=== PATIENT | male | born 1955 | race African-American/Black ===

== ENCOUNTER 2020-05-15 01:36 | Outpatient (CLI) | payer OTHER, SELFPAY ==
[2020-05-15 20:39] LABS: SARS-CoV-2 RNA PCR Negative
== END 2020-05-15 01:37 | disposition home or self-care (01) ==
LOC: ANHCOVIDDT 01:37
PROVIDERS: PCP Family Medicine; Visit Provider Internal Medicine Gastroenterology
DX: Z01.812 Encounter for preprocedural laboratory examination (principal); Z20.828 Contact with and (suspected) exposure to other viral communicable diseases
CPT/HCPCS: 87635; C9803; U0003

== ENCOUNTER 2020-05-18 01:19 | Day surgery (SDC) | payer OTHER, SELFPAY ==
[2020-05-12 08:51] VITALS: BMI 32.5
--- NOTE | 2020-05-18 06:42 | WPDANESEPPF ---
Anes - Initial Pre Proc Eval Procedure: Operation Date: 05/18/20 09:00 Proposed Procedures p Screening Colonoscopy - Jose Angel Aguilar DO Date/Time: 05/18/20 06:42 Surgeon: Jose Angel Aguilar DO Pre Op Diagnosis: neoplasm screening Patient Data Age: 64 Gender: M Height: 1.83 m Weight: 109 kg Allergies Allergy/AdvReac Type Severity Reaction Status Date / Time BRANDI Inhibitors Allergy Mild Swelling Verified 05/18/20 07:35 of Lip/Tongue/Throat Home Medications Medication Instructions Recorded Confirmed Type potassium chloride 10 mEq 20 meq PO DAILY #180 tablet 08/11/19 05/12/20 Rx tablet,extended release metformin 500 mg tablet,extended 2,000 mg PO QPM #360 tablet 10/22/19 05/12/20 Rx release 24 hr blood sugar diagnostic #100 each 11/12/19 04/20/20 Rx blood-glucose meter #1 each 11/12/19 04/20/20 Rx lancets 30 gauge #100 each 11/12/19 04/20/20 Rx indapamide 2.5 mg tablet 2.5 mg PO DAILY #90 tablet 11/25/19 05/12/20 Rx diltiazem HCl 360 mg capsule,24 360 mg PO DAILY #90 cap 02/03/20 05/12/20 Rx hr,extended release pravastatin 40 mg tablet 40 mg PO DAILY #90 tablet 02/03/20 05/12/20 Rx glimepiride 2 mg tablet 2 mg PO BID #180 tablet 04/03/20 05/12/20 Rx dapagliflozin 10 mg tablet 10 mg PO DAILY #90 tablet 05/02/20 05/12/20 Rx Patient hx anesthesia problems: none Family hx anesthesia problems: none PMFSH Past Medical History Medical History (Updated 05/18/20 @ 06:43 by Pete Nazario MD) Elevated alkaline phosphatase level Hypercholesterolemia Obesity Primary hypertension Pyogenic granuloma of tongue Type 2 diabetes mellitus with hyperglycemia Umbilical hernia Family History Family History Mother Diabetes mellitus Hypertension Social History Social History Smoking status: Former smoker Second hand tobacco smoke exposure: No Smoking end date: 07/07/13 Alcohol intake: never Substance use: never Substance use type: does not use Living arrangements: with family Gender identity (if verbalized by the patient): Male Spiritual care concerns: No Agree to blood products: Yes Anes - Eval Final PreProcedure Day of Procedure 05/18/20 06:42 Patient weight: obese Heart: regular rate and rhythm Lungs: clear to auscultation and normal air movement Airway: Mallampati scale class II Neurological: alert and oriented Last oral intake: >/= 8 hours ASA classification: III Emergent: no Anesthetic plan: proceed Anesthesia type and monitoring: general GIVS Informed Consent: The patient's anesthetic plan and its attendant risks and benefits were discussed with the patient/family/POA. Questions were solicited and answers provided to the satisfaction of the patient/family/POA.
[2020-05-18 07:37] VITALS: BP 151/91; PULSE 72; RESP 18; TEMP 36.6; O2SAT 100; BMI 33.3
[2020-05-18] MEDS: LACTATED RINGERS 1,000 ML 150 ML IV CONT (07:50)
[2020-05-18 07:54] LABS: Glucose Point of Care 108 (65-105)
--- NOTE | 2020-05-18 08:16 | PM.IMHP ---
H&P: HPI History of Present Illness Date/Time: 05/18/20 08:16 Chief complaint: neoplasm screening Narrative: Reason for visit is colonoscopy. This very pleasant gentleman seen in consultation at the request of the primary physician. Impression: Screening colonoscopy. HLD. HTN. Obesity. DM. Pyogenic granuloma of the tongue. Recommendation: Colonoscopy. History: Very pleasant gentleman has a negative GI review of systems. He is here for screening colonoscopy. Physical examination: General: very pleasant patient in no acute distress. HEENT: Head was normocephalic sclerae is clear mouth without masses neck was supple. Heart: Rate rhythm regular without S3 or S4. Lungs: CTA. Abdomen: Soft with no guarding or rigidity. Bowel sounds were active. Neurologic: Cranial nerves 2 through 12 intact. No focal defects. No clonus. Musculoskeletal system: Revealed no joint tenderness or swelling no muscle atrophy. Extremities: Reveal no significant edema. Skin: Warm and dry with normal turgor. Mental status: intact. Patient is alert and oriented. Review of Systems Review of Systems: All systems reviewed & are unremarkable except as noted in HPI and below PMFSH Past Medical History Medical History (Updated 05/18/20 @ 08:15 by Jose Angel Aguilar DO) Hypercholesterolemia Obesity Primary hypertension Pyogenic granuloma of tongue Type 2 diabetes mellitus with hyperglycemia Surgical History Surgical History (Updated 05/18/20 @ 08:16 by Jose Angel Aguilar DO) H/O colonoscopy H/O umbilical hernia repair S/P left knee arthroscopy Family History Family History Mother Diabetes mellitus Hypertension Social History Social History Smoking status: Former smoker Second hand tobacco smoke exposure: No Smoking end date: 07/07/13 Alcohol intake: never Substance use: never Substance use type: does not use Living arrangements: with family Gender identity (if verbalized by the patient): Male Spiritual care concerns: No Agree to blood products: Yes Meds Home Medications and Allergies Home Medications Medication Instructions Recorded Confirmed Type potassium chloride 10 mEq 20 meq PO DAILY #180 tablet 08/11/19 05/18/20 Rx tablet,extended release metformin 500 mg tablet,extended 2,000 mg PO QPM #360 tablet 10/22/19 05/18/20 Rx release 24 hr blood sugar diagnostic #100 each 11/12/19 05/18/20 Rx blood-glucose meter #1 each 11/12/19 05/18/20 Rx lancets 30 gauge #100 each 11/12/19 05/18/20 Rx indapamide 2.5 mg tablet 2.5 mg PO DAILY #90 tablet 11/25/19 05/18/20 Rx diltiazem HCl 360 mg capsule,24 360 mg PO DAILY #90 cap 02/03/20 05/18/20 Rx hr,extended release pravastatin 40 mg tablet 40 mg PO DAILY #90 tablet 02/03/20 05/18/20 Rx glimepiride 2 mg tablet 2 mg PO BID #180 tablet 04/03/20 05/18/20 Rx dapagliflozin 10 mg tablet 10 mg PO DAILY #90 tablet 05/02/20 05/18/20 Rx Allergies Allergy/AdvReac Type Severity Reaction Status Date / Time BRANDI Inhibitors Allergy Mild Swelling Verified 05/18/20 07:35 of Lip/Tongue/Throat Vital Signs Vital Signs - 24 hr 05/18/20 07:37 Temperature 36.6 C Pulse Rate 72 Respiratory Rate 18 Blood Pressure 151/91 H Pulse Oximetry 100
[2020-05-18 08:57] VITALS: BP 111/70; PULSE 59; RESP 12; O2SAT 97
[2020-05-18 09:07] VITALS: BP 118/79; PULSE 56; RESP 15; O2SAT 100
[2020-05-18 09:17] VITALS: BP 111/70; PULSE 59; RESP 12; O2SAT 97
== END 2020-05-18 09:40 | disposition home or self-care (01) ==
PROVIDERS: PCP Family Medicine; Visit Provider Internal Medicine Gastroenterology
PROC: 0DJD8ZZ Inspection of Lower Intestinal Tract, Via Natural or Artificial Opening Endoscopic (ICD-10-PCS; CPT 45378; principal; 2020-05-18 09:00)
DX: Z12.11 Encounter for screening for malignant neoplasm of colon (principal); K63.5 Polyp of colon; K57.30 Diverticulosis of large intestine without perforation or abscess without bleeding; K64.8 Other hemorrhoids; Z79.84 Long term (current) use of oral hypoglycemic drugs; E78.00 Pure hypercholesterolemia, unspecified; I10 Essential (primary) hypertension; E11.9 Type 2 diabetes mellitus without complications; E66.9 Obesity, unspecified; Z68.33 Body mass index [BMI] 33.0-33.9, adult; Z87.891 Personal history of nicotine dependence
CPT/HCPCS: 45380; 88305; J2001; J2704; J7120

== ENCOUNTER 2020-10-17 08:07 | Outpatient (CLI) | payer OTHER, SELFPAY | END 2020-10-17 08:08 | disposition home or self-care (01) | LOC: ANHCOVIDVC 08:07 | PROVIDERS: PCP Podiatrist Foot & Ankle Surgery | DX: Z23 Encounter for immunization (principal) | CPT/HCPCS: 0001A; 91300 ==

== ENCOUNTER 2020-11-06 08:12 | Outpatient (CLI) | payer OTHER, SELFPAY | END 2020-11-06 08:13 | disposition home or self-care (01) | LOC: ANHCOVIDVC 08:13 | PROVIDERS: PCP Physician Assistant | DX: Z23 Encounter for immunization (principal) | CPT/HCPCS: 0002A; 91300 ==

== ENCOUNTER 2021-09-24 00:43 | Day surgery (SDC) | payer BC, SELFPAY ==
[2021-09-11 15:22] VITALS: BMI 28.0
--- NOTE | 2021-09-22 12:38 | WPDANESEPPF ---
Anes - Initial Pre Proc Eval Procedure: Operation Date: 09/24/21 10:00 Proposed Procedures p Screening Colonoscopy - Jose Angel Gonsalez MD Date/Time: 09/22/21 12:38 Surgeon: Jose Angel Gonsalez MD Pre Op Diagnosis: neoplasm screening Patient Data Age: 66 Gender: M Height: 1.83 m Weight: 94 kg Allergies Allergy/AdvReac Type Severity Reaction Status Date / Time BRANDI Inhibitors Allergy Mild Swelling Verified 09/24/21 09:00 of Lip/Tongue/Throat Home Medications Medication Instructions Recorded Confirmed Type blood-glucose meter #1 each 11/12/19 07/10/21 Rx lancets 30 gauge #100 each 11/12/19 07/10/21 Rx semaglutide 3 mg tablet 3 mg PO DAILY 11/08/20 09/11/21 History blood sugar diagnostic See Rx Instructions .ROUTE 12/18/20 09/11/21 Rx .COMPLEX #300 strip potassium chloride 10 mEq 20 meq PO DAILY #180 tablet 03/07/21 09/11/21 Rx tablet,extended release metformin 500 mg tablet,extended 2,000 mg PO QPM #360 tablet 04/06/21 09/11/21 Rx release 24 hr dapagliflozin 10 mg tablet 10 mg PO DAILY #90 tablet 05/14/21 09/11/21 Rx diltiazem HCl 360 mg capsule,24 See Rx Instructions .ROUTE 05/14/21 09/11/21 Rx hr,extended release .COMPLEX #90 cap pravastatin 40 mg tablet See Rx Instructions .ROUTE 05/14/21 09/11/21 Rx .COMPLEX #90 tablet indapamide 2.5 mg tablet See Rx Instructions .ROUTE 09/03/21 09/11/21 Rx .COMPLEX #90 tablet glimepiride [Amaryl] 2 mg PO BID 09/11/21 09/11/21 History Patient hx anesthesia problems: none Family hx anesthesia problems: none Results Review: All pre-operative results and documents have been reviewed as part of the pre-operative evaluation. [facility] Past Medical History Medical History Hypercholesterolemia Obesity Primary hypertension Pyogenic granuloma of tongue Type 2 diabetes mellitus with hyperglycemia Surgical History Surgical History H/O colonoscopy H/O umbilical hernia repair S/P left knee arthroscopy Family History Family History Mother Diabetes mellitus Hypertension Social History Social History Smoking status: Never smoker Second hand tobacco smoke exposure: No Smoking end date: 07/07/13 Alcohol intake: never Substance use: never Substance use type: does not use Living arrangements: with family Gender identity (if verbalized by the patient): Male Sexual Orientation (if Verbalized by the Patient): Straight or Heterosexual Spiritual care concerns: No Agree to blood products: Yes Anes - Eval Final PreProcedure Day of Procedure 09/22/21 12:38 Patient weight: overweight Heart: regular rate and rhythm Lungs: clear to auscultation and normal air movement Airway: Mallampati scale class II Neurological: alert and oriented Last oral intake: >/= 8 hours ASA classification: III Emergent: no Anesthetic plan: proceed Anesthesia type and monitoring: general GIVS and standard monitoring Results Review: All pre-operative results and documents have been reviewed as part of the pre-operative evaluation. Informed Consent: The patient's anesthetic plan and its attendant risks and benefits were discussed with the patient/family/POA. Questions were solicited and answers provided to the satisfaction of the patient/family/POA.
[2021-09-24 09:01] VITALS: BP 149/88; PULSE 81; RESP 18; TEMP 36.3; O2SAT 100
[2021-09-24 09:10] LABS: Glucose Point of Care 121 mg/dl (65-105)
--- NOTE | 2021-09-24 09:16 | WPDGICN ---
Assessment and Plan Assessment and plan (1) Colon cancer screening: Code(s): Z12.11 - Encounter for screening for malignant neoplasm of colon Status: Acute Assessment and Plan: Patient presents for neoplasia screening today. Further recommendations will be given after colonoscopy. (2) History of colon polyps: Code(s): Z86.010 - Personal history of colonic polyps Status: Acute Assessment and Plan: Patient was found to have a cecal colon polyp in 2019. At that time colon prep was in adequate for the remainder of the colon. Surveillance colonoscopy advised at this time and at intervals in the future because we know he has had cecal colon polyp a year and half ago. GI Consult Note Consult date/time: 09/24/21 09:16 HPI: Natan Auguste is a 66 year old male Presents for screening colonoscopy. Patient was found to have a cecal polyp One and half years ago. At that time colonoscopy had a poor preparation. Patient presents today for to complete evaluation of the remainder of his colon. He states his bowel habits are normal. He has had no bleeding. His family history is noncontributory. Review of Systems Review of Systems: All systems reviewed & are unremarkable except as noted in HPI and below PMFSH Past Medical History Medical History Hypercholesterolemia Obesity Primary hypertension Pyogenic granuloma of tongue Type 2 diabetes mellitus with hyperglycemia Surgical History Surgical History H/O colonoscopy H/O umbilical hernia repair S/P left knee arthroscopy Family History Family History Mother Diabetes mellitus Hypertension Social History Social History Smoking status: Never smoker Second hand tobacco smoke exposure: No Smoking end date: 07/07/13 Alcohol intake: never Substance use: never Substance use type: does not use Living arrangements: with family Gender identity (if verbalized by the patient): Male Sexual Orientation (if Verbalized by the Patient): Straight or Heterosexual Spiritual care concerns: No Agree to blood products: Yes Meds Home Medications and Allergies Home Medications Medication Instructions Recorded Confirmed Type blood-glucose meter #1 each 11/12/19 07/10/21 Rx lancets 30 gauge #100 each 11/12/19 07/10/21 Rx semaglutide 3 mg tablet 3 mg PO DAILY 11/08/20 09/11/21 History blood sugar diagnostic See Rx Instructions .ROUTE 12/18/20 09/11/21 Rx .COMPLEX #300 strip potassium chloride 10 mEq 20 meq PO DAILY #180 tablet 03/07/21 09/11/21 Rx tablet,extended release metformin 500 mg tablet,extended 2,000 mg PO QPM #360 tablet 04/06/21 09/11/21 Rx release 24 hr dapagliflozin 10 mg tablet 10 mg PO DAILY #90 tablet 05/14/21 09/11/21 Rx diltiazem HCl 360 mg capsule,24 See Rx Instructions .ROUTE 05/14/21 09/11/21 Rx hr,extended release .COMPLEX #90 cap pravastatin 40 mg tablet See Rx Instructions .ROUTE 05/14/21 09/11/21 Rx .COMPLEX #90 tablet indapamide 2.5 mg tablet See Rx Instructions .ROUTE 09/03/21 09/11/21 Rx .COMPLEX #90 tablet glimepiride [Amaryl] 2 mg PO BID 09/11/21 09/11/21 History Allergies Allergy/AdvReac Type Severity Reaction Status Date / Time BRANDI Inhibitors Allergy Mild Swelling Verified 09/24/21 09:00 of Lip/Tongue/Throat Vital Signs Vital Signs - 24 hr 09/24/21 09:01 Temperature 97.4 F L Pulse Rate 81 Respiratory Rate 18 Blood Pressure 149/88 H Pulse Oximetry 100 Exam Narrative: Physical exam reveals patient to be alert. Vital signs stable. HEENT exam is unremarkable. Patient is anicteric. Lungs are clear to auscultation and percussion. Heart is without murmur or extra sounds. Abdominal exam bowel sounds are present
[2021-09-24] MEDS: LACTATED RINGERS 1,000 ML 150 ML IV CONT (09:17)
[2021-09-24 09:48] VITALS: BP 92/58; PULSE 63; RESP 15; O2SAT 98
[2021-09-24 09:58] VITALS: BP 93/58; PULSE 63; RESP 14; O2SAT 98
[2021-09-24 10:08] VITALS: BP 99/62; PULSE 61; RESP 17; O2SAT 98
== END 2021-09-24 10:18 | disposition home or self-care (01) ==
PROVIDERS: PCP Family Medicine; Visit Provider Internal Medicine Gastroenterology
PROC: 0DJD8ZZ Inspection of Lower Intestinal Tract, Via Natural or Artificial Opening Endoscopic (ICD-10-PCS; CPT 45378; principal; 2021-09-24 10:00)
DX: Z12.11 Encounter for screening for malignant neoplasm of colon (principal); Z86.010 Personal history of colon polyps; I10 Essential (primary) hypertension; E11.9 Type 2 diabetes mellitus without complications; E78.00 Pure hypercholesterolemia, unspecified; E66.9 Obesity, unspecified; Z68.28 Body mass index [BMI] 28.0-28.9, adult; Z79.84 Long term (current) use of oral hypoglycemic drugs; Z53.8 Procedure and treatment not carried out for other reasons
CPT/HCPCS: 45378; 82948; J2704; J7120

== ENCOUNTER 2021-10-11 01:14 | Day surgery (SDC) | payer BC, SELFPAY ==
[2021-10-03 09:22] VITALS: BMI 29.5
[2021-10-11 09:00] VITALS: BP 143/79; PULSE 70; RESP 18; TEMP 36.2; O2SAT 100; BMI 28.5
[2021-10-11] MEDS: LACTATED RINGERS 1,000 ML 150 ML IV CONT (09:21)
[2021-10-11 09:24] LABS: Glucose Point of Care 147 mg/dl (65-105)
--- NOTE | 2021-10-11 09:50 | WPDANESEPPF ---
Anes - Initial Pre Proc Eval Procedure: Operation Date: 10/11/21 10:00 Proposed Procedures p Screening Colonoscopy - Jose Angel Gonsalez MD Date/Time: 10/11/21 09:50 Surgeon: Jose Angel Gonsalez MD Pre Op Diagnosis: neoplasm screening Patient Data Age: 66 Gender: M Height: 1.83 m Weight: 95.6 kg Last Vital Signs Temp 97.2 F L 10/11/21 09:00 Pulse 70 10/11/21 09:00 Resp 18 10/11/21 09:00 BP 143/79 H 10/11/21 09:00 Pulse Ox 100 10/11/21 09:00 Allergies Allergy/AdvReac Type Severity Reaction Status Date / Time BRANDI Inhibitors Allergy Mild Swelling Verified 10/11/21 09:08 of Lip/Tongue/Throat Home Medications Medication Instructions Recorded Confirmed Type blood-glucose meter #1 each 11/12/19 10/11/21 Rx lancets 30 gauge #100 each 11/12/19 10/11/21 Rx blood sugar diagnostic See Rx Instructions .ROUTE 12/18/20 10/11/21 Rx .COMPLEX #300 strip potassium chloride 10 mEq 20 meq PO DAILY #180 tablet 03/07/21 10/11/21 Rx tablet,extended release metformin 500 mg tablet,extended 2,000 mg PO QPM #360 tablet 04/06/21 10/11/21 Rx release 24 hr dapagliflozin 10 mg tablet 10 mg PO DAILY #90 tablet 05/14/21 10/11/21 Rx indapamide 2.5 mg tablet See Rx Instructions .ROUTE 09/03/21 10/11/21 Rx .COMPLEX #90 tablet glimepiride [Amaryl] 2 mg PO BID 09/11/21 10/11/21 History diltiazem HCl 360 mg capsule,24 See Rx Instructions .ROUTE 10/10/21 10/11/21 Rx hr,extended release .COMPLEX #90 cap pravastatin 40 mg tablet See Rx Instructions .ROUTE 10/10/21 10/11/21 Rx .COMPLEX #90 tablet Laboratory Tests 10/11/21 09:20 POC Capillary Glucose 147 mg/dl H mg/dl (65-105) Patient hx anesthesia problems: none Family hx anesthesia problems: none Results Review: All pre-operative results and documents have been reviewed as part of the pre-operative evaluation. [facility] Past Medical History Medical History Hypercholesterolemia Obesity Primary hypertension Pyogenic granuloma of tongue Type 2 diabetes mellitus with hyperglycemia Surgical History Surgical History H/O colonoscopy H/O umbilical hernia repair S/P left knee arthroscopy Family History Family History Mother Diabetes mellitus Hypertension Social History Social History Smoking status: Former smoker Tobacco type: cigarettes Second hand tobacco smoke exposure: No Smoking end date: 07/07/13 Alcohol intake: never Substance use: never Substance use type: does not use Living arrangements: with family Gender identity (if verbalized by the patient): Male Sexual Orientation (if Verbalized by the Patient): Straight or Heterosexual Spiritual care concerns: No Agree to blood products: Yes Anes - Eval Final PreProcedure Day of Procedure 10/11/21 09:50 Patient weight: obese Heart: regular rate and rhythm Lungs: clear to auscultation Airway: Mallampati scale class II Neurological: alert and oriented Last oral intake: >/= 8 hours ASA classification: III Emergent: no Anesthetic plan: proceed Anesthesia type and monitoring: general GIVS and standard monitoring Results Review: All pre-operative results and documents have been reviewed as part of the pre-operative evaluation. Informed Consent: The patient's anesthetic plan and its attendant risks and benefits were discussed with the patient/family/POA. Questions were solicited and answers provided to the satisfaction of the patient/family/POA.
--- NOTE | 2021-10-11 09:58 | WPDGICN ---
Assessment and Plan Assessment and plan (1) History of colon polyps: Code(s): Z86.010 - Personal history of colonic polyps Status: Acute Assessment and Plan: Patient has prior history of colon polyps by colonoscopy in 2019. Most recent attempt it is follow-up exam was limited by retained stool. Plan is for follow-up colonoscopy today. Patient has received additional preparation in anticipation of this exam. GI Consult Note Consult date/time: 10/11/21 09:58 HPI: Natan Auguste is a 66 year old male Presents for screening colonoscopy. Patient has attempted colonoscopy several weeks ago was limited by poor preparation. Patient has a prior history of colon polyps by colonoscopy in 2019. Patient states that his current weight appetite bowel movements are normal. He denies abdominal pain. He has had no bleeding. Previous colonoscopy attempt several weeks ago was not fruitful because retained stool. Patient presents today for screening. Review of Systems Review of Systems: All systems reviewed & are unremarkable except as noted in HPI and below PMFSH Past Medical History Medical History Hypercholesterolemia Obesity Primary hypertension Pyogenic granuloma of tongue Type 2 diabetes mellitus with hyperglycemia Surgical History Surgical History H/O colonoscopy H/O umbilical hernia repair S/P left knee arthroscopy Family History Family History Mother Diabetes mellitus Hypertension Social History Social History Smoking status: Former smoker Tobacco type: cigarettes Second hand tobacco smoke exposure: No Smoking end date: 07/07/13 Alcohol intake: never Substance use: never Substance use type: does not use Living arrangements: with family Gender identity (if verbalized by the patient): Male Sexual Orientation (if Verbalized by the Patient): Straight or Heterosexual Spiritual care concerns: No Agree to blood products: Yes Meds Home Medications and Allergies Home Medications Medication Instructions Recorded Confirmed Type blood-glucose meter #1 each 11/12/19 10/11/21 Rx lancets 30 gauge #100 each 11/12/19 10/11/21 Rx blood sugar diagnostic See Rx Instructions .ROUTE 12/18/20 10/11/21 Rx .COMPLEX #300 strip potassium chloride 10 mEq 20 meq PO DAILY #180 tablet 03/07/21 10/11/21 Rx tablet,extended release metformin 500 mg tablet,extended 2,000 mg PO QPM #360 tablet 04/06/21 10/11/21 Rx release 24 hr dapagliflozin 10 mg tablet 10 mg PO DAILY #90 tablet 05/14/21 10/11/21 Rx indapamide 2.5 mg tablet See Rx Instructions .ROUTE 09/03/21 10/11/21 Rx .COMPLEX #90 tablet glimepiride [Amaryl] 2 mg PO BID 09/11/21 10/11/21 History diltiazem HCl 360 mg capsule,24 See Rx Instructions .ROUTE 10/10/21 10/11/21 Rx hr,extended release .COMPLEX #90 cap pravastatin 40 mg tablet See Rx Instructions .ROUTE 10/10/21 10/11/21 Rx .COMPLEX #90 tablet Allergies Allergy/AdvReac Type Severity Reaction Status Date / Time BRANDI Inhibitors Allergy Mild Swelling Verified 10/11/21 09:08 of Lip/Tongue/Throat Vital Signs Vital Signs - 24 hr 10/11/21 09:00 Temperature 97.2 F L Pulse Rate 70 Respiratory Rate 18 Blood Pressure 143/79 H Pulse Oximetry 100 Exam Narrative: Physical exam reveals patient to be alert. Vital signs stable. HEENT exam is unremarkable. Patient is anicteric. Lungs are clear to auscultation and percussion. Heart is without murmur or extra sounds. Abdominal exam bowel sounds are present soft nontender with no organomegaly. Digital external rectal exam is normal.
[2021-10-11 10:31] VITALS: BP 95/72; PULSE 59; RESP 22; O2SAT 98
[2021-10-11 10:41] VITALS: BP 109/64; PULSE 52; RESP 14; O2SAT 99
[2021-10-11 10:51] VITALS: BP 125/76; PULSE 57; RESP 17; O2SAT 98
--- NOTE | 2021-10-11 10:58 | SUR.PHASEII ---
Pt will be delayed in discharge due to S.O. having pt's clothes. S.O. is 20 min away.
== END 2021-10-11 11:30 | disposition home or self-care (01) ==
PROVIDERS: PCP Physician Assistant; Visit Provider Internal Medicine Gastroenterology
PROC: 0DJD8ZZ Inspection of Lower Intestinal Tract, Via Natural or Artificial Opening Endoscopic (ICD-10-PCS; CPT 45378; principal; 2021-10-11 10:00)
DX: Z09 Encounter for follow-up examination after completed treatment for conditions other than malignant neoplasm (principal); D12.2 Benign neoplasm of ascending colon; K63.5 Polyp of colon; K64.8 Other hemorrhoids; K57.30 Diverticulosis of large intestine without perforation or abscess without bleeding; E78.00 Pure hypercholesterolemia, unspecified; I10 Essential (primary) hypertension; E11.65 Type 2 diabetes mellitus with hyperglycemia; Z87.891 Personal history of nicotine dependence
CPT/HCPCS: 45380; 82948; 88305; J2704; J7120

== ENCOUNTER 2022-09-09 08:20 | Outpatient (CLI) | payer BC, SELFPAY ==
--- NOTE | ~2022-09-09 | US_ITS ---
EXAMINATION: US arterial ankle brachial ind DATE: 09/09/2022 09:05 INDICATION: Peripheral vascular disease. TECHNIQUE: Segmental pressures and plethysmographic and Doppler waveforms of the brachial and lower e xtremity arteries were obtained. COMPARISON: None. FINDINGS: Right and left brachial artery pressures of 139 mm Hg and 126 mm Hg, respectively, are concordant (no rmal difference <= 30 mmHg). The right ankle-brachial index (GUILLERMO) is 1.20 (normal >= 0.9-1.0). The right great toe-brachial index (TBI) is 0.60 (normal >= 0.65). Arterial Doppler waveforms are biphasic with brisk systolic upstrokes at both right posterior tibial and dorsalis pedis arteries. The left GUILLERMO is 1.17. The left TBI is 0.63. Arterial Doppler waveforms are triphasic at the left post erior tibial and biphasic at the left dorsalis pedis arteries, both with brisk systolic upstrokes. IMPRESSION: 1. Mild peripheral arterial occlusive disease with normal bilateral ABIs but mildly decreased bilater al TBIs. Reviewed, dictated and finalized at location A. R CONTROL COUNSELOR IMPRESSION: 1. Mild peripheral arterial occlusive disease with normal bilateral ABIs but mi ldly decreased bilateral TBIs.
== END 2022-09-09 08:21 | disposition home or self-care (01) ==
PROVIDERS: PCP Family Medicine; Visit Provider Family Medicine
DX: I73.9 Peripheral vascular disease, unspecified (principal)
CPT/HCPCS: 93922

== ENCOUNTER 2022-10-02 14:55 | Emergency (ER) | payer BC, SELFPAY ==
[2022-10-02 14:57] VITALS: BP 137/71; PULSE 76; RESP 16; TEMP 36.3; O2SAT 100
[2022-10-02 15:33] LABS: Appearance Urine Clear (Clear); Bilirubin Urine Negative (Negative); Blood Urine Negative (Negative); Color Urine Yellow (Yellow); Glucose Urine UA 3+ mg/dL (Negative); Ketones Urine Trace mg/dL (Negative); Leukocyte Esterase Ur Negative LEU/UL (Negative); Nitrate Urine Negative (Negative); Protein Urine Negative (Negative); Urobilinogen Urine 0.2 mg/dL (<2.0)
[2022-10-02 15:38] LABS: Specific Grav Ur 1.041 (1.001-1.035)
[2022-10-02 15:39] LABS: Add Urine Microscopic? NO
--- NOTE | 2022-10-02 15:53 | ED.BACK ---
HPI - Back Pain/Injury General Chief Complaint: Back Pain/Injury <Brandt Banegas PA-C - Last Filed: 10/02/22 18:27> Stated Complaint: back pain <MICHELLE Stoll Last Filed: 10/02/22 18:27> Time Seen by Provider: 10/02/22 15:00 <Brandt Banegas PA-C - Last Filed: 10/02/22 18:27> Source: patient <MICHELLE Stoll Last Filed: 10/02/22 18:27> Mode of arrival: ambulatory <Brandt Banegas PA-C - Last Filed: 10/02/22 18:27> Limitations: no limitations <MICHELLE Stoll Last Filed: 10/02/22 18:27> History of Present Illness HPI Narrative: This is a 67-year-old male presents the ED for chief complaint of low back pain x2 weeks. Patient states that this was onset shortly after helping someone move heavy furniture. He reports right-sided lower back pain that does not radiate anywhere else. Worsened with bending over and picking things up. Denies urinary symptoms. Denies abdominal pain. Denies any midline back pain. <Brandt Banegas PA-C - Last Filed: 10/02/22 18:27> Related Data Home Medications: Home Medications Medication Instructions Recorded Confirmed glimepiride 2 mg tablet (Amaryl) 2 mg PO BID 09/11/21 09/03/22 <Brandt Banegas PA-C - Last Filed: 10/02/22 18:27> Allergies/Adverse Reactions: Allergies Allergy/AdvReac Type Severity Reaction Status Date / Time BRANDI Inhibitors Allergy Mild Swelling Verified 09/03/22 08:29 of Lip/Tongue/Throat <MICHELLE Stoll Last Filed: 10/02/22 18:27> Review of Systems Review of Systems: CONSTITUTIONAL: Denies fever, chills, or sweats. EYES: Denies visual changes, redness, or discharge. ENT: Denies rhinorrhea, congestion, sore throat, or otalgia. CARDIOVASCULAR: Denies chest pain, palpitations, or edema. RESPIRATORY: Denies cough or dyspnea. GASTROINTESTINAL: Denies abdominal pain, nausea, vomiting, or diarrhea. GENITOURINARY: Denies dysuria or hematuria. SKIN: Denies rash or itching. MUSCULOSKELETAL: Endorses right lower back pain. denies joint pain, or myalgia. NEUROLOGIC: Denies headache, numbness, dizziness, or weakness. PSYCHIATRIC: Denies anxiety or depression. <Brandt Banegas PA-C - Last Filed: 10/02/22 18:27> [facility] Past Medical History Medical History: Medical History Hypercholesterolemia Obesity Primary hypertension Pyogenic granuloma of tongue Type 2 diabetes mellitus with hyperglycemia <Brandt Banegas PA-C - Last Filed: 10/02/22 18:27> Surgical History Surgical History: Surgical History H/O colonoscopy H/O umbilical hernia repair S/P left knee arthroscopy <Brandt Banegas PA-C - Last Filed: 10/02/22 18:27> Family History Family History: Family History Mother Diabetes mellitus Hypertension Sibling Alzheimer's dementia <Brandt Banegas PA-C - Last Filed: 10/02/22 18:27> Social History Social History: Social History Smoking packs per day: 1.5 Smoking cigarettes per day: 30.0 Years smoked: 20 Smoking pack-years: 30.00 Smoking status: Former smoker Tobacco type: cigarettes Second hand tobacco smoke exposure: No Smoking end date: 07/07/13 Alcohol intake: never Substance use: never Substance use type: does not use Lack of Transportation: No Lack of Food: Sometimes True Current Housing: I Have Housing Concerned About Future Housing: No Difficulty Paying Gas/Electric Bills: No Difficulty Paying for Meds: No Currently Unemployed: No Education: High School Diploma/GED Difficulty w/ Childcare or Family Care: No Living arrangements: alone Occupation/Education: occupation Gender identity (if verbalized by the patient): Male Sexual Orientation (if Verbalized by the Patient): Straight or Hetero
== END 2022-10-02 16:37 | disposition home or self-care (01) ==
PROVIDERS: Emergency Medicine; Emergency Provider Physician Assistant; PCP Family Medicine
DX: S39.012A Strain of muscle, fascia and tendon of lower back, initial encounter (principal); I10 Essential (primary) hypertension; E11.9 Type 2 diabetes mellitus without complications; Z87.891 Personal history of nicotine dependence; X50.0XXA Overexertion from strenuous movement or load, initial encounter
CPT/HCPCS: 81003; 99283

== ENCOUNTER 2022-12-10 08:43 | Outpatient (CLI) | payer BC, SELFPAY ==
--- NOTE | ~2022-12-10 | XR_ITS ---
XR shoulder LT min 2V DATE: 12/10/2022 09:05 INDICATION: Left shoulder pain for 2 weeks; no injury. TECHNIQUE: 4 views COMPARISON: None FINDINGS: No fracture or dislocation, periosteal reaction or bone destruction or abnormal soft tissue calcification. Normal alignment at the acromioclavicular and glenohumeral joints. IMPRESSION: No significant abnormality Reviewed, dictated and finalized at location L. IMPRESSION: No significant abnormality
== END 2022-12-10 08:44 | disposition home or self-care (01) ==
PROVIDERS: PCP Family Medicine; Visit Provider Physician Assistant
DX: M25.512 Pain in left shoulder (principal)
CPT/HCPCS: 73030

== ENCOUNTER 2023-09-26 14:32 | Outpatient (CLI) | payer BC, SELFPAY ==
--- NOTE | ~2023-09-26 | US_ITS ---
EXAMINATION: US arterial ankle brachial ind DATE: 09/26/2023 15:22 INDICATION: Arterial occlusive disease to the bilateral lower limbs. TECHNIQUE: Segmental pressures and plethysmographic and Doppler waveforms of the brachial and lower e xtremity arteries were obtained. COMPARISON: 09/09/2022 FINDINGS: Right and left brachial artery pressures of 129 mm Hg and 121 mm Hg, respectively, are concordant (no rmal difference <= 30 mmHg). The right ankle-brachial index (GUILLERMO) is 1.16 (normal >= 0.9-1.0). The right great toe-brachial index (TBI) is 0.49 (normal >= 0.65). Arterial Doppler waveforms are monophasic at the right posterior tibi al artery and biphasic at the right dorsalis pedis artery, both with brisk systolic upstrokes. The left GUILLERMO is 1.05. The left TBI is 0.60. Arterial Doppler waveforms are monophasic with brisk syst olic upstrokes at both left posterior tibial and dorsalis pedis arteries. IMPRESSION: 1. No significant change in mild peripheral arterial occlusive disease to the bilateral lower limbs w ith normal bilateral ABIs but mildly decreased bilateral TBIs. Reviewed, dictated and finalized at location A. IMPRESSION: 1. No significant change in mild peripheral arterial occlusive disease to the b ilateral lower limbs with normal bilateral ABIs but mildly decreased bilateral TBIs.
== END 2023-09-26 14:33 | disposition home or self-care (01) ==
LOC: ANHIMG 14:34
PROVIDERS: PCP Family Medicine; Visit Provider Physician Assistant Medical
DX: I73.9 Peripheral vascular disease, unspecified (principal); E11.65 Type 2 diabetes mellitus with hyperglycemia
CPT/HCPCS: 93922

== ENCOUNTER 2023-09-27 07:08 | Outpatient (CLI) | payer BC, SELFPAY ==
[2023-09-27 08:09] LABS: Alanine Aminotransferase 17 U/L (6-50); Albumin Level 4.2 g/dL (3.5-5.1); Alkaline Phosphatase 153 U/L (38-126); Anion Gap 7 mmol/L (8-16); Aspartate Amino Transferase 24 U/L (17-59); Bilirubin,Total 0.5 mg/dL (0.2-1.3); Blood Urea Nitrogen 21 mg/dL (9-20); Calcium 9.7 mg/dL (8.4-10.2); Carbon Dioxide 30 mmol/L (22-30); Chloride 103 mmol/L (98-107); Cholesterol 166 mg/dL (0-200); Estimated Glomerular Filt Rate > 60; Glucose 303 mg/dL (65-110); HDL Direct 30 mg/dL; Sodium 140 mmol/L (137-145); Triglycerides 100 mg/dL (<150)
[2023-09-27 08:40] LABS: Prostate Specific Antigen 1.3 ng/mL (< OR = 4.0)
[2023-09-27 09:37] LABS: LDL Cholesterol Direct 111 mg/dL
[2023-09-27 15:25] LABS: Hemoglobin A1C > 14.0 % (<5.7)
== END 2023-09-27 07:09 | disposition home or self-care (01) ==
PROVIDERS: PCP Family Medicine; Visit Provider Physician Assistant Medical
DX: E78.2 Mixed hyperlipidemia (principal); R73.03 Prediabetes; Z12.5 Encounter for screening for malignant neoplasm of prostate
CPT/HCPCS: 36415; 80053; 80061; 83036; 84153; G0103

== ENCOUNTER 2023-11-20 09:01 | Outpatient (CLI) | payer BC, SELFPAY ==
--- NOTE | 2023-11-20 09:22 | ECG_ITS ---
SEE SCANNED COPY FOR CONFIRMED REPORT MTDD
[2023-11-20 11:07] LABS: Basophils Percent Auto 0.4 % (0.2-1.2); Eosinophils Absolute Auto 0.1 K/mm3 (0-0.3); Eosinophils Percent Auto 0.7 % (0-4.4); Hematocrit 44.3 % (42.0-52.0); Hemoglobin 14.6 g/dL (14.0-18.0); Immature Granulocyte Absolute 0.06 K/mm3 (0.00-0.031); Immature Granulocyte Percent A 0.6 % (0-0.5); Lymphocytes Absolute Auto 2.21 K/mm3 (0.9-3.2); Lymphocytes Percent Auto 21.9 % (18.3-44.2); Mean Corpuscular Hemoglobin 27.4 pg (26-34); Mean Corpuscular Volume 83.1 fl (80-100); Mean Platelet Volume 11.8 fl (7.4-10.4); Monocytes Absolute Auto 0.9 K/mm3 (0.1-0.6); Monocytes Percent Auto 8.8 % (2.6-8.5); Neutrophils Absolute Auto 6.8 K/mm3 (1.3-6.7); Neutrophils Percent Auto 67.6 % (45.5-73.1); Platelet Count Result 322 k/mm3 (150-375); Red Blood Count 5.33 M/mm3 (4.6-6.20); Red Cell Distribution Width 13.7 % (11.5-14.5); White Blood Count 10.1 K/mm3 (4.5-10.0)
[2023-11-20 11:10] LABS: Alanine Aminotransferase 15 U/L (6-50); Albumin Level 4.6 g/dL (3.5-5.1); Alkaline Phosphatase 185 U/L (38-126); Anion Gap 13 mmol/L (4-12); Aspartate Amino Transferase 22 U/L (17-59); Bilirubin,Total 0.6 mg/dL (0.2-1.3); Blood Urea Nitrogen 14 mg/dL (9-20); Calcium 9.3 mg/dL (8.4-10.2); Carbon Dioxide 26 mmol/L (22-30); Chloride 100 mmol/L (98-107); Estimated Glomerular Filt Rate > 60; Glucose 248 mg/dL (65-110); Lipase 139 U/L (23-300); Potassium 2.7 mmol/L (3.4-5.0); Sodium 139 mmol/L (137-145)
== END 2023-11-20 09:02 | disposition home or self-care (01) ==
PROVIDERS: PCP Family Medicine; Visit Provider Student in an Organized Health Care Education/Training Program
DX: R10.13 Epigastric pain (principal); E11.65 Type 2 diabetes mellitus with hyperglycemia
CPT/HCPCS: 36415; 80053; 83690; 85025; 93005

== ENCOUNTER 2023-11-20 12:17 | Emergency (ER) | payer BC, SELFPAY ==
[2023-11-20 12:25] VITALS: BP 152/91; PULSE 96; RESP 18; TEMP 36.4; O2SAT 100
--- NOTE | 2023-11-20 12:42 | ED.GENADULT ---
HPI - General Adult General Chief complaint: Recheck/Abnormal Lab/Rx Stated complaint: abn labs Time Seen by Provider: 11/20/23 12:20 History of Present Illness HPI narrative: 68-year-old male presents to the emergency department for evaluation for hypokalemia. Patient has had recent labs drawn due to some persistent epigastric abdominal pain which is being worked up as outpatient. Patient did have baseline labs drawn today and was found to have a low potassium and patient was instructed to present to the emergency department for evaluation. Patient denies any complaints at this time. Patient states he is a poorly controlled diabetic. Related Data Home Medications Medication Instructions Recorded Confirmed glimepiride 2 mg tablet (Amaryl) 2 mg PO BID 09/11/21 11/19/23 Allergies Allergy/AdvReac Type Severity Reaction Status Date / Time BRANDI Inhibitors Allergy Mild Swelling Verified 11/20/23 12:28 of Lip/Tongue/Throat Review of Systems Review of Systems: All systems reviewed & are unremarkable except as noted in HPI and below PMFSH Past Medical History Medical History Benign hypertension Class 1 obesity with body mass index (BMI) of 32.0 to 32.9 in adult Diastasis recti History of colon polyps Hypercholesterolemia Hyperlipidemia Obesity Primary hypertension Primary osteoarthritis of left knee Primary osteoarthritis of right knee Pyogenic granuloma of tongue Type 2 diabetes mellitus with hyperglycemia Umbilical hernia without obstruction and without gangrene Ventral hernia without obstruction or gangrene Surgical History Surgical History H/O colonoscopy H/O umbilical hernia repair S/P left knee arthroscopy Family History Family History Mother Diabetes mellitus Hypertension Sibling Alzheimer's dementia Social History Social History Smoking packs per day: 1.5 Smoking cigarettes per day: 30.0 Years smoked: 20 Smoking pack-years: 30.00 Smoking status: Former smoker Tobacco type: cigarettes Second hand tobacco smoke exposure: No Smoking end date: 07/07/13 Alcohol intake: never Substance use: never Substance use type: does not use Lack of Transportation: No Lack of Food: Sometimes True Current Housing: I Have Housing Concerned About Future Housing: No Difficulty Paying Gas/Electric Bills: No Difficulty Paying for Meds: No Currently Unemployed: No Education: High School Diploma/GED Difficulty w/ Childcare or Family Care: No Living arrangements: alone Occupation/Education: occupation Gender identity (if verbalized by the patient): Male Sexual Orientation (if Verbalized by the Patient): Straight or Heterosexual Spiritual care concerns: No Agree to blood products: Yes Exam Narrative: APPEARANCE: Well appearing, no pain, no distress, well-nourished. HEAD: normocephalic, atraumatic. EYES: PERRLA/EOMI, conjunctivae clear. NOSE: Normal no drainage EARS:TMS clear with good light reflex. THROAT: Pharynx clear, no exudate. NECK: Supple. No adenopathy, no masses. RESPIRATORY: Airway patent, respirations nonlabored. Clear to auscultation bilaterally, no rales, rhonchi, wheezing. CARDIOVASCULAR: Regular rate and rhythm without murmurs rubs or gallops. ABDOMINAL: Epigastric tenderness to palpation MUSCULOSKELETAL: Moves all extremities. Strength/ROM intact, No edema, No calf tenderness. NEURO: Alert. Cranial nerves II through XII intact. Good gait. Good coordination SKIN: Warm, dry. Normal Color Course Vital Signs Vital signs: Vital Signs Temperature 97.5 F L 11/20/23 12:25 Pulse Rate 96 11/20/23 12:25 Respiratory Rate 18 11/20/23 12:25 Blood Pressure 152/91 H
[2023-11-20 13:01] LABS: Anion Gap 10 mmol/L (4-12); Blood Urea Nitrogen 14 mg/dL (9-20); Calcium 9.5 mg/dL (8.4-10.2); Carbon Dioxide 30 mmol/L (22-30); Chloride 100 mmol/L (98-107); Estimated CRCL calculation 105 ml/min; Estimated Glomerular Filt Rate > 60; Glucose 242 mg/dL (65-110); Magnesium 2.5 mg/dL (1.6-2.3); Sodium 140 mmol/L (137-145)
[2023-11-20] MEDS: POTASSIUM CHLORIDE 20 MEQ PACKET (FOR LIQUID) 40 MEQ PO (13:09)
--- NOTE | 2023-11-20 13:17 | ECG_ITS ---
SEE SCANNED COPY FOR CONFIRMED REPORT MTDD
[2023-11-20 14:11] VITALS: BP 129/84; PULSE 82; RESP 16; O2SAT 99
== END 2023-11-20 14:12 | disposition home or self-care (01) ==
PROVIDERS: Emergency Provider Emergency Medicine; PCP Family Medicine
DX: E87.6 Hypokalemia (principal); I10 Essential (primary) hypertension; E78.5 Hyperlipidemia, unspecified; E11.9 Type 2 diabetes mellitus without complications; Z87.891 Personal history of nicotine dependence
CPT/HCPCS: 36415; 80048; 80053; 83690; 83735; 85025; 93005; 99283; A9270

== ENCOUNTER 2023-11-24 09:17 | Outpatient (CLI) | payer BC, SELFPAY ==
[2023-11-24 10:02] LABS: Alanine Aminotransferase 15 U/L (6-50); Albumin Level 4.4 g/dL (3.5-5.1); Alkaline Phosphatase 192 U/L (38-126); Anion Gap 8 mmol/L (4-12); Aspartate Amino Transferase 20 U/L (17-59); Bilirubin,Total 0.5 mg/dL (0.2-1.3); Blood Urea Nitrogen 14 mg/dL (9-20); Calcium 9.6 mg/dL (8.4-10.2); Carbon Dioxide 33 mmol/L (22-30); Chloride 96 mmol/L (98-107); Estimated Glomerular Filt Rate > 60; Glucose 328 mg/dL (65-110); Potassium 2.9 mmol/L (3.4-5.0); Sodium 137 mmol/L (137-145)
== END 2023-11-24 09:18 | disposition home or self-care (01) ==
LOC: ANHLAB 09:18
PROVIDERS: PCP Family Medicine; Visit Provider Physician Assistant Medical
DX: E78.2 Mixed hyperlipidemia (principal)
CPT/HCPCS: 36415; 80053

== ENCOUNTER 2023-12-17 14:00 | Outpatient (CLI) | payer BC, SELFPAY ==
--- NOTE | ~2023-12-17 | CT_ITS ---
CT of the Abdomen and Pelvis: Indication: Abdominal pain Technique: 2.5 mm axial scans were obtained through the abdomen and pelvis following intravenous adm inistration of 100 cc of Omnipaque 350. Dose reduction technique was used on this scan by utilizing a utomated exposure control and iterative reconstruction technique. The dose-length product (DLP) was 6 78.96 mGy-cm. Findings: Scans through the lung bases are unremarkable. The liver, spleen, pancreas, gallbladder, adrenals and kidneys are within normal limits, aside from b ilateral renal cysts. No evidence of aortic aneurysm. No lymphadenopathy. No bowel obstruction or bowel wall thickening. There is no evidence to suggest acute appendicitis. Images through the pelvis were performed. Urinary bladder unremarkable. No pelvic mass seen. No ascit es. Impression: No significant abnormalities seen. Reviewed, dictated and finalized at [facility]. Impression: No significant abnormalities seen.
[2023-12-17 15:11] LABS: Basophils Percent Auto 0.4 % (0.2-1.2); Eosinophils Absolute Auto 0.1 K/mm3 (0-0.3); Eosinophils Percent Auto 1.2 % (0-4.4); Hematocrit 38.2 % (42.0-52.0); Hemoglobin 12.9 g/dL (14.0-18.0); Immature Granulocyte Absolute 0.02 K/mm3 (0.00-0.031); Immature Granulocyte Percent A 0.3 % (0-0.5); Lymphocytes Absolute Auto 2.28 K/mm3 (0.9-3.2); Lymphocytes Percent Auto 29.7 % (18.3-44.2); Mean Corpuscular HGB Conc 33.8 g/dl (32-36); Mean Corpuscular Hemoglobin 27.4 pg (26-34); Mean Corpuscular Volume 81.3 fl (80-100); Mean Platelet Volume 11.1 fl (7.4-10.4); Monocytes Absolute Auto 0.7 K/mm3 (0.1-0.6); Monocytes Percent Auto 9.4 % (2.6-8.5); Neutrophils Absolute Auto 4.5 K/mm3 (1.3-6.7); Platelet Count Result 295 k/mm3 (150-375); Red Cell Distribution Width 13.4 % (11.5-14.5); White Blood Count 7.7 K/mm3 (4.5-10.0)
[2023-12-17 15:38] LABS: Alanine Aminotransferase 14 U/L (6-50); Alkaline Phosphatase 137 U/L (38-126); Anion Gap 7 mmol/L (4-12); Aspartate Amino Transferase 20 U/L (17-59); Bilirubin,Total 0.5 mg/dL (0.2-1.3); Blood Urea Nitrogen 18 mg/dL (9-20); Calcium 9.3 mg/dL (8.4-10.2); Carbon Dioxide 28 mmol/L (22-30); Chloride 102 mmol/L (98-107); Estimated Glomerular Filt Rate > 60; Glucose 209 mg/dL (65-110); Potassium 2.8 mmol/L (3.4-5.0); Sodium 137 mmol/L (137-145)
== END 2023-12-17 14:01 | disposition home or self-care (01) ==
PROVIDERS: PCP Family Medicine; Visit Provider Family Medicine
DX: R10.13 Epigastric pain (principal); R19.00 Intra-abdominal and pelvic swelling, mass and lump, unspecified site; R10.9 Unspecified abdominal pain
CPT/HCPCS: 36415; 74177; 80053; 85025; Q9967

== ENCOUNTER 2023-12-26 09:28 | Outpatient (CLI) | payer BC, SELFPAY ==
[2023-12-26 10:13] LABS: Hemoglobin A1C 13.3 % (<5.7)
[2023-12-26 10:15] LABS: Alanine Aminotransferase 18 U/L (6-50); Albumin Level 4.4 g/dL (3.5-5.1); Alkaline Phosphatase 139 U/L (38-126); Anion Gap 9 mmol/L (4-12); Aspartate Amino Transferase 24 U/L (17-59); Bilirubin,Total 0.6 mg/dL (0.2-1.3); Blood Urea Nitrogen 14 mg/dL (9-20); Calcium 9.5 mg/dL (8.4-10.2); Carbon Dioxide 27 mmol/L (22-30); Chloride 104 mmol/L (98-107); Estimated Glomerular Filt Rate > 60; Glucose 291 mg/dL (65-110); Potassium 3.6 mmol/L (3.4-5.0); Sodium 140 mmol/L (137-145)
== END 2023-12-26 09:29 | disposition home or self-care (01) ==
LOC: ANHLAB 09:30
PROVIDERS: PCP Family Medicine; Visit Provider Physician Assistant Medical
DX: R73.03 Prediabetes (principal); E78.2 Mixed hyperlipidemia; E87.6 Hypokalemia
CPT/HCPCS: 36415; 80053; 82088; 83036

== ENCOUNTER 2024-01-06 00:35 | Day surgery (SDC) | payer BC, SELFPAY ==
--- NOTE | 2023-12-17 10:37 | SUR.PREOP ---
patient called saying he lost his prep instructions. Offered to email him his instructions. Patient said he didn't have an email address. Reviewed prep instructions and appointment times with the patient. Verified pt's mail address. Two day prep instructions mailed to the patient.
[2023-12-23 14:03] VITALS: BMI 28.5
[2024-01-06 07:15] VITALS: BP 121/78; PULSE 73; RESP 18; TEMP 36.1; O2SAT 100
[2024-01-06] MEDS: LACTATED RINGERS 1,000 ML 150 ML IV CONT (07:33)
[2024-01-06 07:34] LABS: Glucose Point of Care 109 mg/dl (65-105)
--- NOTE | 2024-01-06 08:10 | WPDANESEPPF ---
Anes - Initial Pre Proc Eval Procedure: Operation Date: 01/06/24 08:30 Proposed Procedures p Colonoscopy - Slick Rivas MD Date/Time: 01/06/24 08:10 Surgeon: Slick Rivas MD Pre Op Diagnosis: Personal history colon polyps Patient Data Age: 68 Gender: M Height: 1.77 m Weight: 87.2 kg Last Vital Signs Temp 97 F L 01/06/24 07:15 Pulse 73 01/06/24 07:15 Resp 18 01/06/24 07:15 BP 121/78 01/06/24 07:15 Pulse Ox 100 01/06/24 07:15 O2 Del Method Room Air 01/06/24 07:15 Allergies Allergy/AdvReac Type Severity Reaction Status Date / Time BRANDI Inhibitors Allergy Intermediate Swelling Verified 01/06/24 07:14 of Lip/Tongue/Throat Home Medications Medication Instructions Recorded Confirmed Type blood-glucose meter (OneTouch #1 ea 11/12/19 11/28/23 Rx Verio Meter) lancets 30 gauge (OneTouch Delica #100 ea 11/12/19 11/28/23 Rx Lancets) indapamide 2.5 mg tablet See Rx Instructions .Route 11/15/22 12/23/23 Rx .COMPLEX #90 tabs dapagliflozin propanediol 10 mg 10 mg PO DAILY #90 tabs 05/19/23 12/23/23 Rx tablet (Farxiga) diltiazem HCl 360 mg capsule,24 See Rx Instructions .Route 08/12/23 12/23/23 Rx hr,extended release (Tiadylt ER) .COMPLEX #90 caps gabapentin 100 mg capsule 100 mg PO TID #90 caps 09/17/23 12/23/23 Rx blood sugar diagnostic (OneTouch See Rx Instructions .Route 12/03/23 Rx Verio test strips) .COMPLEX #300 strips pravastatin 40 mg tablet See Rx Instructions .Route 12/11/23 12/23/23 Rx .COMPLEX #90 tabs potassium chloride 20 mEq 20 meq PO TID #90 tabs 12/17/23 12/23/23 Rx tablet,extended release Laboratory Tests 01/06/24 07:31 POC Capillary Glucose 109 H mg/dl (65-105) Patient hx anesthesia problems: none Family hx anesthesia problems: none Results Review: All pre-operative results and documents have been reviewed as part of the pre-operative evaluation. [facility]LY [facility], [facility] Past Medical History Medical History Benign hypertension Class 1 obesity with body mass index (BMI) of 32.0 to 32.9 in adult Diastasis recti History of colon polyps Hypercholesterolemia Hyperlipidemia Obesity Primary hypertension Primary osteoarthritis of left knee Primary osteoarthritis of right knee Pyogenic granuloma of tongue Type 2 diabetes mellitus with hyperglycemia Umbilical hernia without obstruction and without gangrene Ventral hernia without obstruction or gangrene Surgical History Surgical History H/O colonoscopy H/O umbilical hernia repair S/P left knee arthroscopy Family History Family History Mother Diabetes mellitus Hypertension Sibling Alzheimer's dementia Social History Social History Smoking packs per day: 1.5 Smoking cigarettes per day: 30.0 Years smoked: 20 Smoking pack-years: 30.00 Smoking status: Former smoker Tobacco type: cigarettes Second hand tobacco smoke exposure: No Smoking end date: 07/07/13 Alcohol intake: current Substance use: never Substance use type: does not use Lack of Transportation: No Lack of Food: Sometimes True Current Housing: I Have Housing Concerned About Future Housing: No Difficulty Paying Gas/Electric Bills: No Difficulty Paying for Meds: No Currently Unemployed: No Education: High School Diploma/GED Difficulty w/ Childcare or Family Care: No Living arrangements: alone Occupation/Education: occupation Gender identity (if verbalized by the patient): Male Sexual Orientation (if Verbalized by the Patient): Straight or Heterosexual Spiritual care concerns: No Agree to blood products: Yes Anes - Eval Final PreProcedure Day of Procedure 01/06/24 08:10 Mike
--- NOTE | 2024-01-06 08:17 | PM.HPGS ---
History of Present Illness History of Present Illness Consent: Risks, benefits, and alternatives have been discussed and questions answered. Patient agrees to proceed with procedure. Chief complaint: Personal history colon polyps Narrative: Natan Auguste is a 68 year old male with colon polyp in 2021 Review of Systems Review of Systems: All systems reviewed & are unremarkable except as noted in HPI and below PMFSH Past Medical History Medical History Benign hypertension Class 1 obesity with body mass index (BMI) of 32.0 to 32.9 in adult Diastasis recti History of colon polyps Hypercholesterolemia Hyperlipidemia Obesity Primary hypertension Primary osteoarthritis of left knee Primary osteoarthritis of right knee Pyogenic granuloma of tongue Type 2 diabetes mellitus with hyperglycemia Umbilical hernia without obstruction and without gangrene Ventral hernia without obstruction or gangrene Surgical History Surgical History H/O colonoscopy H/O umbilical hernia repair S/P left knee arthroscopy Family History Family History Mother Diabetes mellitus Hypertension Sibling Alzheimer's dementia Social History Social History Smoking packs per day: 1.5 Smoking cigarettes per day: 30.0 Years smoked: 20 Smoking pack-years: 30.00 Smoking status: Former smoker Tobacco type: cigarettes Second hand tobacco smoke exposure: No Smoking end date: 07/07/13 Alcohol intake: current Substance use: never Substance use type: does not use Lack of Transportation: No Lack of Food: Sometimes True Current Housing: I Have Housing Concerned About Future Housing: No Difficulty Paying Gas/Electric Bills: No Difficulty Paying for Meds: No Currently Unemployed: No Education: High School Diploma/GED Difficulty w/ Childcare or Family Care: No Living arrangements: alone Occupation/Education: occupation Gender identity (if verbalized by the patient): Male Sexual Orientation (if Verbalized by the Patient): Straight or Heterosexual Spiritual care concerns: No Agree to blood products: Yes Meds Home Medications and Allergies Home Medications Medication Instructions Recorded Confirmed Type blood-glucose meter (OneTouch #1 ea 11/12/19 11/28/23 Rx Verio Meter) lancets 30 gauge (OneTouch Delica #100 ea 11/12/19 11/28/23 Rx Lancets) indapamide 2.5 mg tablet See Rx Instructions .Route 11/15/22 12/23/23 Rx .COMPLEX #90 tabs dapagliflozin propanediol 10 mg 10 mg PO DAILY #90 tabs 05/19/23 12/23/23 Rx tablet (Farxiga) diltiazem HCl 360 mg capsule,24 See Rx Instructions .Route 08/12/23 12/23/23 Rx hr,extended release (Tiadylt ER) .COMPLEX #90 caps gabapentin 100 mg capsule 100 mg PO TID #90 caps 09/17/23 12/23/23 Rx blood sugar diagnostic (OneTouch See Rx Instructions .Route 12/03/23 Rx Verio test strips) .COMPLEX #300 strips pravastatin 40 mg tablet See Rx Instructions .Route 12/11/23 12/23/23 Rx .COMPLEX #90 tabs potassium chloride 20 mEq 20 meq PO TID #90 tabs 12/17/23 12/23/23 Rx tablet,extended release Allergies Allergy/AdvReac Type Severity Reaction Status Date / Time BRANDI Inhibitors Allergy Intermediate Swelling Verified 01/06/24 07:14 of Lip/Tongue/Throat Vital Signs Vital Signs - 24 hr 01/06/24 07:15 Temperature 97 F L Pulse Rate 73 Respiratory Rate 18 Blood Pressure 121/78 Pulse Oximetry 100 Oxygen Delivery Room Air Exam Const: General: comfortable and no acute distress HENMT: Face/Nose/Sinus: Normal nares present Eyes: General: appearance normal, both eyes and all related structures Neck: Neck: no JVD Resp: Auscultation: clear to auscultation bilaterally Cardio:
[2024-01-06 08:44] VITALS: BP 102/57; PULSE 59; RESP 14; O2SAT 100
[2024-01-06 08:54] VITALS: BP 107/65; PULSE 64; RESP 18; O2SAT 100
[2024-01-06 09:04] VITALS: BP 126/69; PULSE 67; RESP 20; O2SAT 100
== END 2024-01-06 09:15 | disposition home or self-care (01) ==
PROVIDERS: PCP Family Medicine; Visit Provider Internal Medicine Gastroenterology
PROC: 0DJD8ZZ Inspection of Lower Intestinal Tract, Via Natural or Artificial Opening Endoscopic (ICD-10-PCS; CPT 45378; principal; 2024-01-06 08:30)
DX: Z12.11 Encounter for screening for malignant neoplasm of colon (principal); D12.2 Benign neoplasm of ascending colon; K57.30 Diverticulosis of large intestine without perforation or abscess without bleeding; K64.8 Other hemorrhoids; I10 Essential (primary) hypertension; E78.5 Hyperlipidemia, unspecified; E11.9 Type 2 diabetes mellitus without complications; E66.9 Obesity, unspecified; Z68.28 Body mass index [BMI] 28.0-28.9, adult; Z87.891 Personal history of nicotine dependence
CPT/HCPCS: 45385; 82948; 88305; J2371; J2704; J7120

== ENCOUNTER 2024-02-10 07:10 | Outpatient (CLI) | payer BC, SELFPAY ==
[2024-02-10 08:18] LABS: Influenza A QL RT-PCR Negative (Negative); Influenza B QL RT-PCR Negative (Negative); RSV RNA, RT-PCR Negative (Negative); SARS-CoV-2 RNA PCR Negative (Negative)
== END 2024-02-10 07:11 | disposition home or self-care (01) ==
LOC: ANHLAB 07:12
PROVIDERS: PCP Family Medicine; Visit Provider Student in an Organized Health Care Education/Training Program
DX: R09.89 Other specified symptoms and signs involving the circulatory and respiratory systems (principal); Z20.822 Contact with and (suspected) exposure to COVID-19
CPT/HCPCS: 87637

== ENCOUNTER 2024-03-11 03:32 | Emergency (ER) | payer BC, SELFPAY ==
[2024-03-11] VITALS (7 sets, daily range): BP systolic 122–154; BP diastolic 62–70; PULSE 64–71; RESP 12–19; TEMP 36.3–36.6; O2SAT 99–100
--- NOTE | ~2024-03-11 | XR_ITS ---
Clinical Indication: Chest pain PA and lateral views of the chest: Comparison: 09/26/2017 Findings: The lungs are clear, without evidence of focal consolidation or pleural effusion. Cardiome diastinal silhouette is within normal limits. Bones and soft tissues are unremarkable. Impression: Normal chest. Reviewed, dictated and finalized at location . Impression: Normal chest.
--- NOTE | 2024-03-11 03:34 | ECG_ITS ---
Test Date: 2024-03-11 03:39:03 Measurements Intervals [place] Rate: 69 P: 69 [place]: 183 QRS: 39 QRSD: 105 T: 45 QT: 395 QTc: 425 Interpretive Statements SINUS RHYTHM ANTEROSEPTAL MYOCARDIAL INFARCTION , OF INDETERMINATE AGE BORDERLINE ST-T WAVE ABNORMALITY- INF/LAT LEADS ABNORMAL ECG No previous ECG available for comparison Electronically Signed On 03-11-2024 05:28:38 CDT by Christiano Goode D.O.
[2024-03-11 04:04] LABS: Basophils Percent Auto 0.5 % (0.2-1.2); Eosinophils Absolute Auto 0.1 K/mm3 (0-0.3); Eosinophils Percent Auto 1.2 % (0-4.4); Hemoglobin 13.9 g/dL (14.0-18.0); Immature Granulocyte Absolute 0.01 K/mm3 (0.00-0.031); Immature Granulocyte Percent A 0.2 % (0-0.5); Lymphocytes Absolute Auto 1.75 K/mm3 (0.9-3.2); Lymphocytes Percent Auto 26.5 % (18.3-44.2); Mean Corpuscular HGB Conc 33.9 g/dl (32-36); Mean Corpuscular Hemoglobin 27.8 pg (26-34); Mean Platelet Volume 11.4 fl (7.4-10.4); Monocytes Absolute Auto 0.8 K/mm3 (0.1-0.6); Monocytes Percent Auto 11.5 % (2.6-8.5); Neutrophils Percent Auto 60.1 % (45.5-73.1); Platelet Count Result 293 k/mm3 (150-375); Red Cell Distribution Width 13.9 % (11.5-14.5); White Blood Count 6.6 K/mm3 (4.5-10.0)
[2024-03-11 04:15] LABS: Alanine Aminotransferase 16 U/L (6-50); Albumin Level 4.2 g/dL (3.5-5.1); Alkaline Phosphatase 171 U/L (38-126); Anion Gap 12 mmol/L (4-12); Aspartate Amino Transferase 23 U/L (17-59); Bilirubin,Total 0.4 mg/dL (0.2-1.3); Blood Urea Nitrogen 19 mg/dL (9-20); Calcium 9.5 mg/dL (8.4-10.2); Carbon Dioxide 28 mmol/L (22-30); Chloride 97 mmol/L (98-107); Estimated CRCL calculation 86 ml/min; Estimated Glomerular Filt Rate > 60; Glucose 461 mg/dL (65-110); Lipase 91 U/L (23-300); Potassium 2.9 mmol/L (3.4-5.0); Sodium 137 mmol/L (137-145)
[2024-03-11 04:21] LABS: INR 0.9; Prothrombin Time 12.8 Seconds (11.1-14.7)
[2024-03-11 04:22] LABS: Partial Thromboplastin Time 25.8 Seconds (22.3-36.8)
[2024-03-11 04:28] LABS: Troponin I < 0.012 ng/mL (0.000-0.034)
--- NOTE | 2024-03-11 06:18 | ECG_ITS ---
Test Date: 2024-03-11 06:23:33 Measurements Intervals [place] Rate: 63 P: 48 [place]: 187 QRS: 15 QRSD: 106 T: 55 QT: 417 QTc: 428 Interpretive Statements SINUS RHYTHM ANTEROSEPTAL MYOCARDIAL INFARCTION , OF INDETERMINATE AGE BORDERLINE ST-T WAVE ABNORMALITY- LAT/HIGH LAT LEADS BASELINE ARTIFACT- I, II, AVR ABNORMAL ECG Compared to ECG 03/11/2024 03:39:03 No significant changes Electronically Signed On 03-11-2024 07:41:46 CDT by Christiano Goode D.O.
[2024-03-11] MEDS: POTASSIUM CHLORIDE 20 MEQ ER TABLET 40 MEQ PO (07:00)
[2024-03-11 07:01] LABS: Troponin I < 0.012 ng/mL (0.000-0.034)
--- NOTE | 2024-03-11 07:13 | ED.CHESTPAIN ---
HPI - Chest Pain General Chief Complaint: Chest Pain Stated Complaint: chest pain x 2 days Time Seen by Provider: 03/11/24 05:28 History of Present Illness HPI narrative: Patient states that he has been having some chest tightness for the last few days, mostly on the left side, does not radiate, no nausea vomiting, no shortness of breath, this has happened in the past but he has disregarded it. Related Data Allergies Allergy/AdvReac Type Severity Reaction Status Date / Time BRANDI Inhibitors Allergy Intermediate Swelling Verified 01/06/24 07:14 of Lip/Tongue/Throat Review of Systems Review of Systems: All systems reviewed & are unremarkable except as noted in HPI and below PMFSH Past Medical History Medical History Benign hypertension Class 1 obesity with body mass index (BMI) of 32.0 to 32.9 in adult Diastasis recti History of colon polyps Hypercholesterolemia Hyperlipidemia Obesity Primary hypertension Primary osteoarthritis of left knee Primary osteoarthritis of right knee Pyogenic granuloma of tongue Type 2 diabetes mellitus with hyperglycemia Umbilical hernia without obstruction and without gangrene Ventral hernia without obstruction or gangrene Surgical History Surgical History H/O colonoscopy H/O umbilical hernia repair S/P left knee arthroscopy Family History Family History Mother Diabetes mellitus Hypertension Sibling Alzheimer's dementia Social History Social History Smoking packs per day: 1.5 Smoking cigarettes per day: 30.0 Years smoked: 20 Smoking pack-years: 30.00 Smoking status: Former smoker Tobacco type: cigarettes Second hand tobacco smoke exposure: No Smoking end date: 07/07/13 Alcohol intake: current Substance use: never Substance use type: does not use Lack of Transportation: No Lack of Food: Sometimes True Current Housing: I Have Housing Concerned About Future Housing: No Difficulty Paying Gas/Electric Bills: No Difficulty Paying for Meds: No Currently Unemployed: No Education: High School Diploma/GED Difficulty w/ Childcare or Family Care: No Living arrangements: alone Occupation/Education: occupation Gender identity (if verbalized by the patient): Male Sexual Orientation (if Verbalized by the Patient): Straight or Heterosexual Spiritual care concerns: No Agree to blood products: Yes Exam Narrative: EXAMINATION OF ORGAN SYSTEMS/BODY AREAS: Constitutional: Vital signs per nursing GENERAL:[No acute distress, non-toxic appearing.] HEAD: Normal with no signs of head trauma. EYES: EOMI, conjunctiva normal ENT: Hearing grossly intact LUNGS: Nonlabored breathing. Clear to auscultation bilaterally HEART: [Regular rate and rhythm] ABD: [Soft], [nontender to palpation] EXT: Normal range of motion SKIN: [No rashes or lesions.] NEURO: [Alert and oriented x 3. No gross focal sensory or strength deficits.] PSYCH: Normal affect Course Vital Signs Vital signs: Vital Signs Temperature 97.8 F 03/11/24 03:57 Pulse Rate 71 03/11/24 03:57 Respiratory Rate 16 03/11/24 03:57 Blood Pressure 154/69 H 03/11/24 03:57 Pulse Oximetry 99 03/11/24 03:57 Oxygen Delivery Room Air 03/11/24 03:57 Temperature 98 F 03/11/24 06:44 Pulse Rate 68 03/11/24 06:44 Respiratory Rate 17 03/11/24 06:44 Blood Pressure 127/70 03/11/24 06:44 Pulse Oximetry 100 03/11/24 06:44 Oxygen Delivery Room Air 03/11/24 05:08 MDM - Chest Pain MDM Narrative Medical decision making narrative: ED COURSE AND MEDICAL DECISION MAKIN-year-old male presenting with chest pain. EKG done in triage negative for acute ischemic changes. Cardiac workup is initiat
--- NOTE | 2024-03-11 07:18 | PC.NURSE ---
Assumed care of pt. Pt resting with reg resp. Rates CP 3.
== END 2024-03-11 07:33 | disposition home or self-care (01) ==
LOC: ANHED 07:27
PROVIDERS: Emergency Medicine; Emergency Provider Emergency Medicine; PCP Family Medicine
DX: R07.89 Other chest pain (principal); I10 Essential (primary) hypertension; E78.5 Hyperlipidemia, unspecified; E11.9 Type 2 diabetes mellitus without complications; Z87.891 Personal history of nicotine dependence
CPT/HCPCS: 36415; 71046; 80053; 83690; 84484; 85025; 85610; 85730; 93005; 99284; A9270

== ENCOUNTER 2024-03-18 07:40 | Outpatient (CLI) | payer BC, SELFPAY ==
[2024-03-18 08:26] LABS: Anion Gap 10 mmol/L (4-12); Blood Urea Nitrogen 16 mg/dL (9-20); Calcium 9.2 mg/dL (8.4-10.2); Carbon Dioxide 31 mmol/L (22-30); Chloride 97 mmol/L (98-107); Estimated Glomerular Filt Rate > 60; Glucose 294 mg/dL (65-110); Magnesium 2.5 mg/dL (1.6-2.3); Potassium 3.2 mmol/L (3.4-5.0); Sodium 138 mmol/L (137-145)
[2024-03-18 09:13] LABS: Thyroid Stimulating Hormone Reflex 0.614 uIU/mL (0.465-4.68)
== END 2024-03-18 07:41 | disposition home or self-care (01) ==
LOC: ANHLAB 07:42
PROVIDERS: PCP Family Medicine; Visit Provider Family Medicine
DX: R00.2 Palpitations (principal); E87.6 Hypokalemia
CPT/HCPCS: 36415; 80048; 83735; 84443

== ENCOUNTER 2024-04-05 08:26 | Outpatient (CLI) | payer BC, SELFPAY ==
--- NOTE | ~2024-04-05 | NM_ITS ---
EXAMINATION: NM debbie stress w perfusion DATE: 04/05/2024 15:31 INDICATION: Chest pain. Palpitations. TECHNIQUE: Rest images were obtained following intravenous administration of 10.6 mCi Tc99m tetrofosm in (Myoview). The patient was infused intravenously with Lexiscan (regadenoson). Then, 33.3 mCi Tc99m tetrofosmin (Myoview) was administered intravenously, and stress images were obtained. Data was michelle nstructed into short axis and horizontal and vertical long axis SPECT images. Gated SPECT images were also obtained. COMPARISON: None. FINDINGS: There is no definite reversible or fixed perfusion abnormality to suggest ischemia or infar ction. There is no segmental wall motion abnormality. Left ventricular ejection fraction measures 5 4%. IMPRESSION: 1. No definite ischemia or infarct. 2. Normal left ventricular ejection fraction measuring 54%. Reviewed, dictated and finalized at location A.
--- NOTE | 2024-04-05 09:07 | EST_ITS ---
Patient Info Name: Natan Auguste Age: 68 years : 1955 Gender: Male Ht: 68 in Wt: 202 lbs BSA: 2.12 m2 HR: 62 bpm BP: 141 / 83 mmHg Exam Date: 04/05/2024 9:49 AM Exam Location: Echo Lab Patient Status: Outpatient Admit Date: 04/05/2024 Staff Ordering Physician: Melia Ortiz MD Attending Provider: Melia Ortiz MD Exercise Technologist: Pili Munroe [facility] Exercise Physician: Christiano Goode DO Exam Type: CA stress debbie w NM Study Info A regadenoson stress test was performed. Summary 1. 1. Negative lexiscan stress test for ischemic ST changes by ECG criteria. 2. 2. Stable hemodynamics throughout the test. 3. 3. Nuclear scan to follow and will be reported separately. Please correlate with it. 4. 4. Patient informed of the above results. Protocol: Lexiscan Stress ECG Details Stage: REST Duration (min): 3 min : 57 sec HR (bpm): 64 SBP (mmHg): 141 DBP (mmHg): 83 Stage: REST Duration (min): 13 min : 49 sec HR (bpm): 59 SBP (mmHg): 141 DBP (mmHg): 83 Stage: STAGE 1 Duration (min): 0 min : 59 sec HR (bpm): 69 SBP (mmHg): 138 DBP (mmHg): 90 Stage: RECOVERY Duration (min): 1 min : 0 sec HR (bpm): 76 SBP (mmHg): 138 DBP (mmHg): 90 Stage: RECOVERY Duration (min): 2 min : 0 sec HR (bpm): 73 SBP (mmHg): 138 DBP (mmHg): 90 Stage: RECOVERY Duration (min): 3 min : 0 sec HR (bpm): 72 SBP (mmHg): 125 DBP (mmHg): 78 Stage: RECOVERY Duration (min): 3 min : 34 sec HR (bpm): 73 SBP (mmHg): 125 DBP (mmHg): 78 Rest HR: 59 bpm Peak HR: 77 bpm Rest Sys BP: 141 mmHg Peak Sys BP: 138 mmHg Max Pred HR: 153 bpm % Max Pred HR: 50 % Target HR: 130 bpm Max RPP: 10,626 bpm*mmHg Termination Reason: Completed protocol Cardiac Symptoms: Shortness of breath Total Time: 1 min : 0 sec Rest Alvarado BP: 83 mmHg Peak Alvarado BP: 90 mmHg Total Dose: 0.4 mg Resting ECG Sinus bradycardia. Stress ECG No ST changes. Arrhythmias None. Report Signatures
--- NOTE | 2024-04-08 15:29 | WPDHOLTEREM ---
Holter/Event Monitor Holter/Event Monitor Date of procedure: 04/05/24 Holter/Event Procedure: 24 Hr Holter Monitor Indications: Palpitations Conclusion: 1. 24 hour holter monitor on 04/05/24. 2. Predominant rhythm is sinus rhythm. HR range 55-113 bpm; average 79 bpm. 3. There are 26 premature supraventricular complexes and 2 supraventricular couplets. There are 3 episodes of atrial tachycardia, fastest at 148 bpm and longest lasting 5 beats. 4. There are 34 premature ventricular complexes, 2 ventricular couplets, and 3 ventricular trigeminy. No ventricular tachycardia. 5. No sinoatrial or atrioventricular blocks. No significant pauses greater than 2 seconds. 6. No symptoms available for correlation.
== END 2024-04-05 08:27 | disposition home or self-care (01) ==
LOC: ANHIMG 08:28
PROVIDERS: PCP Family Medicine; Visit Provider Family Medicine
DX: R07.9 Chest pain, unspecified (principal); R00.2 Palpitations
CPT/HCPCS: 78452; 93017; 93225; 93226; A9502; J2785

== ENCOUNTER 2024-04-09 07:51 | Outpatient (CLI) | payer BC, SELFPAY ==
[2024-04-09 09:20] LABS: Basophils Absolute Auto 0.1 K/mm3 (0.0-0.1); Basophils Percent Auto 0.6 % (0.2-1.2); Eosinophils Absolute Auto 0.2 K/mm3 (0-0.3); Eosinophils Percent Auto 1.8 % (0-4.4); Hematocrit 43.1 % (42.0-52.0); Hemoglobin 14.5 g/dL (14.0-18.0); Immature Granulocyte Absolute 0.01 K/mm3 (0.00-0.031); Immature Granulocyte Percent A 0.1 % (0-0.5); Lymphocytes Absolute Auto 2.52 K/mm3 (0.9-3.2); Lymphocytes Percent Auto 29.7 % (18.3-44.2); Mean Corpuscular HGB Conc 33.6 g/dl (32-36); Mean Corpuscular Hemoglobin 27.9 pg (26-34); Mean Corpuscular Volume 82.9 fl (80-100); Mean Platelet Volume 11.3 fl (7.4-10.4); Monocytes Absolute Auto 0.8 K/mm3 (0.1-0.6); Neutrophils Percent Auto 58.8 % (45.5-73.1); Platelet Count Result 315 k/mm3 (150-375); Red Cell Distribution Width 14.5 % (11.5-14.5); White Blood Count 8.5 K/mm3 (4.5-10.0)
[2024-04-09 09:22] LABS: Alanine Aminotransferase 20 U/L (6-50); Albumin Level 4.3 g/dL (3.5-5.1); Alkaline Phosphatase 159 U/L (38-126); Anion Gap 10 mmol/L (4-12); Aspartate Amino Transferase 27 U/L (17-59); Bilirubin,Total 0.4 mg/dL (0.2-1.3); Blood Urea Nitrogen 9 mg/dL (9-20); Calcium 9.1 mg/dL (8.4-10.2); Carbon Dioxide 24 mmol/L (22-30); Chloride 108 mmol/L (98-107); Estimated Glomerular Filt Rate > 60; Glucose 183 mg/dL (65-110); Potassium 3.5 mmol/L (3.4-5.0); Sodium 142 mmol/L (137-145)
== END 2024-04-09 07:52 | disposition home or self-care (01) ==
PROVIDERS: PCP Family Medicine; Visit Provider Student in an Organized Health Care Education/Training Program
DX: E87.5 Hyperkalemia (principal); R53.83 Other fatigue
CPT/HCPCS: 36415; 80053; 85025

== ENCOUNTER 2024-04-22 09:24 | Outpatient (CLI) | payer BC, SELFPAY ==
[2024-04-22 10:07] LABS: Anion Gap 10 mmol/L (4-12); Blood Urea Nitrogen 17 mg/dL (9-20); Calcium 9.3 mg/dL (8.4-10.2); Carbon Dioxide 22 mmol/L (22-30); Chloride 109 mmol/L (98-107); Estimated Glomerular Filt Rate > 60; Glucose 205 mg/dL (65-110); Potassium 4.4 mmol/L (3.4-5.0); Sodium 141 mmol/L (137-145)
== END 2024-04-22 09:25 | disposition home or self-care (01) ==
PROVIDERS: PCP Family Medicine
DX: R00.2 Palpitations (principal)
CPT/HCPCS: 36415; 80048

== ENCOUNTER 2024-09-07 10:04 | Outpatient (CLI) | payer BC, SELFPAY | END 2024-09-07 10:05 | disposition home or self-care (01) | PROVIDERS: PCP Family Medicine; Visit Provider Student in an Organized Health Care Education/Training Program | DX: G56.21 Lesion of ulnar nerve, right upper limb (principal); G56.01 Carpal tunnel syndrome, right upper limb | CPT/HCPCS: 95886; 95909 ==

== ENCOUNTER 2024-10-11 10:50 | Outpatient (CLI) | payer BC, SELFPAY ==
--- NOTE | ~2024-10-11 | XR_ITS ---
Left Knee Technique: AP, lateral, and sunrise views were obtained. Clinical History: Pain Findings: No fracture or dislocation is seen. Osseous alignment is anatomic. Moderate tricompartmenta l degenerative joint disease present. Soft tissues are unremarkable. No joint effusion is seen. Impression: Moderate tricompartmental degenerative joint disease. Reviewed, dictated and finalized at location . Impression: Moderate tricompartmental degenerative joint disease.
--- OUTSIDE RECORDS SUMMARY | 2024-10-11 12:36 | XMS_ITS | Referral Summary ---
Author Organization [facility] [address] Address [address] [place] [id number] Care Team Providers Care Die Repair Name Role Phone Melia Ortiz MD Primary Care Provider [phone] Allergies No known active allergies Medications atorvastatin (LIPITOR) 80 mg tablet Take 1 tablet (80 mg total) by mouth nightly at bedtime. Active OneTouch Verio test strips strip 4 Active dapagliflozin propanediol (FARXIGA) 10 mg tablet Take 1 tablet (10 mg total) by mouth fishing vessel captain before breakfast Active diltiaZEM CD (CARDIZEM CD) 360 mg 24 hr capsule Take 1 capsule (360 mg total) by mouth daily Active metFORMIN (GLUCOPHAGE) 500 mg tablet Take 1 tablet (500 mg total) by mouth daily 4 Active BD Ultra-Fine Orig Pen Needle 29 gauge x 1/2 needle USE DIRECTED 4 TIMES A DAY 4 Active nitroglycerin (NITROSTAT) 0.[address] 1 tablet (0.4 mg total) under the tongue every 5 (five) minutes as needed 4 Active NovoLOG 100 unit/mL (3 mL) pen for injectionIndicat ions:Type 2 diabetes mellitus with hyperglycemia, with long-term current use of insulin (HCC) Inject 5-10 Units under the skin 3 (three) times a day with meals 27 mL 3 4 04/26/20 25 Active LANTUS 100 unit/mL (3 mL) pen for injectionIndicat ions:Type 2 diabetes mellitus with hyperglycemia, with long-term current use of insulin (HCC) Inject 8-10 Units under the skin nightly 15 mL 3 4 Active spironolactone (ALDACTONE) 25 mg tablet Take 1 tablet (25 mg total) by mouth daily 4 Active traZODone (DESYREL) 50 mg tablet TAKE 1 TAB BY MOUTH EVERY DAY AT BEDTIME NEEDED FOR INSOMNIA 4 Active aspirin 81 mg enteric coated tablet Take 1 tablet (81 mg total) by mouth daily 4 Active diltiazem (TIAZAC) 360 mg 24 hr capsule 4 Active losartan (COZAAR) 100 mg tablet 4 Active gabapentin (NEURONTIN) 100 mg capsuleIndicatio ns:Diabetic neuropathy associated with type 2 diabetes mellitus (HCC) Take 1 capsule (100 mg total) by mouth every morning AND 1 capsule (100 mg total) daily after lunch AND 3 capsules (300 mg total) nightly. 450 capsule 3 4 06/22/20 25 Active Dexcom G7 Sensor deviceIndication s:Type 2 diabetes mellitus with hyperglycemia, with long-term current use of insulin (HCC) Use one sensor every 10 days 10 each 3 4 Active Active Problems Problem Noted Date Diagnosed Date Nonobstructive atherosclerosis of coronary arter y 04/28/2024 Palpitations 04/28/2024 Type 2 diabetes mellitus wit h hyperglycemia, with long-term current use of insulin 04/26/2024 Assessment & Plan (06/22/2024 9:11 AM HAND ALTERATIONS TAILOR): Chronic problem. A1c improved from 11.1% 04/26/24 to now 7.7%. Current medications: Metformin 500mg twice daily before meals Farxiga 10mg daily Lantus 8-10 units at bedtime, increase by 2 units if BG >120 Novolog 5 units three times daily with meals If blood sugar is <150, take 5 units. If blood sugar is between 151-200, take 6 units. If blood sugar is between 201-250, take 7 units. If blood sugar is between 251-300, take 8 units. If blood sugar is between 301-350, take 9 units. If blood sugar is between >351, take 10 units. DM eye due. Will call once new insurance starts in 2024. Will update MA/Cr. Does not mychart. Verified phone #/address to contact re: results. Discussed with Natan Auguste: Strive for regular exercise (30min most days) and diet (get at least 4-5 servings of fruit and veggies daily, avoid processed foods, increase lean protein intake and decrease carb portions as well as fruit juices, regular soda & desserts). Watch carbs and simple sugars. Check the blood sugar: Dexcom G7. Check the feet daily for skin breakdown and infection. Assessment & Plan (04/26/2024 11:13 AM CDT): Chronic, poorly controlled, improving slowly but still above goal A1c today 11.1 % , goal A1c atleast less than 7.5-7 % - discussed about CGM - pt willing to try Dexcom G7 - gave samples and educated pt in office today and sent Rx - increase Lantus to 8 - 10 units SQ daily at bedtime ( if your morning blood sugar are still over 120 consisently - ok to increase by 2 units ) - Novolog 5 units three times with meals + below correctional scale 151 - 200 + 1 unit 201 - 250 + 2 units 251 - 300 + 3 units 301 - 350 + 4 units Over 351 + 5 units Continue current dose of Metformin and Farxiga Make eye exam appointment soon Increase vegetables and protein with meals and cut back on carbs 30 min walking every day Advise to see Manager Pe Follow up in 2 months Hypertension associated with diabetes 04/26/2024 Assessment & Plan (06/22/2024 9:13 AM HAND ALTERATIONS TAILOR): Chronic problem. Elevated upon arrival. Currently taking diltiazem CD 360mg daily, losartan 100mg daily, spironolactone 25mg daily Assessment & Plan (04/26/2024 11:11 AM CDT): Chronic, uncontrolled On Losartan Advise to work on low salt diet Will reassess in next visit and further adjust Diabetic neuropathy associat ed with type 2 diabetes mellitus 04/26/2024 Assessment & Plan (06/22/2024 9:11 AM HAND ALTERATIONS TAILOR): Chronic problem. Currently taking Gabapentin 100mg tid but worsening pain at HS. Will increase HS to 300mg. Reviewed foot care; needs to lotion daily. Aware to check feet nightly, not to go barefoot. Assessment & Plan (04/26/2024 11:09 AM CDT): Chronic, improving Continue Gabapentin for symptomatic management Work on tighter glycemic control Hyperlipidemia associated with type 2 diabetes layla garcia 04/26/2024 Assessment & Plan (06/22/2024 8:47 AM HAND ALTERATIONS TAILOR): Chronic problem. Currently taking Atorvastatin 80mg. Last lipid panel: 03/25/24 AIO=740, MB=889. Assessment & Plan (04/26/2024 11:09 AM CDT): Continue Statin therapy Overweight with body mass in dex (BMI) of 28 to 28.9 in adult 04/26/2024 Assessment & Plan (04/26/2024 11:11 AM CDT): Counseled on diet and exercise and healthy lifestyle habits Social History Tobacco Use Types Packs/Day Years Used Date Smoking Tobacco: Former Cigarettes Smokeless Tobacco: Never Sex and Gender Information Value Date Recorded Sex Assigned at Not on file Legal Sex Male 1:04 AM HAND ALTERATIONS TAILOR Gender Identity Not on file Sexual Orientation Not on file Last Filed Vital Signs Vital Sign Reading Time Taken Comments Blood Pressure 148/78 06/22/2024 9:13 AM HAND ALTERATIONS TAILOR has not yet taken antihypertensives today Pulse 85 06/22/2024 8:29 AM HAND ALTERATIONS TAILOR Temperature - - Respiratory Rate 18 06/22/2024 8:29 AM HAND ALTERATIONS TAILOR Oxygen Saturation 99% 04/28/2024 9:5 3 AM CDT Inhaled Oxygen Concentration - - Weight 99.8 kg (220 lb) 06/22/2024 8:29 AM HAND ALTERATIONS TAILOR Height 182.9 cm (6' 0.01 ) 06/22/2024 8:29 AM HAND ALTERATIONS TAILOR Body Mass Index 29.83 06/22/2024 8:29 AM HAND ALTERATIONS TAILOR Plan of Treatment Not on file Procedures Procedure Name Priority Date/Time Associated Diagnosis Comments POCT HEMOGLOBIN A1C Routine 06/22/2024 8 :32 AM HAND ALTERATIONS TAILOR Type 2 diabetes mellitus with hyperglycemia, with long-term current use of insulin (HCC) ALBUMIN CREATININE RATIO, URINE Routine 06/22/2024 8:00 AM HAND ALTERATIONS TAILOR Type 2 diabetes mellitus with hyperglycemia, with long-term current use of insulin (HCC) LIPID PANEL Routine 03/25/2024 9:51 AM CDT from Last 3 Months or Most Recently Relevant to Health Maintenance Results * (ABNORMAL) POCT hemoglobin A1c (06/22/2024 8:32 AM HAND ALTERATIONS TAILOR) Pathologist [facility] Hemoglobin A1C, POC 7.7 4.0 - 5.6 % Blood 06/22/2024 8:32 AM HAND ALTERATIONS TAILOR Swathi Caballero NP POINT OF CARE TEST ORDERA BLES Final Result * Albumin Creatinine Ratio, Urine (06/22/2024 8:00 AM HAND ALTERATIONS TAILOR) [facility] Albumin Ur <12.0 mg/L Comment: Interpretive Data No reference range established. Current interpretive data was last revised 2018. Creatinine Ur 49.5 mg/dL [facility] Comment: Interpretive Data No reference range established. Current interpretive data was last revised 2018. Albumin Creatinine Ratio, Ur <24 1 - 29 mg/g [facility]HENG Urine 06/22/2024 8:00 AM HAND ALTERATIONS TAILOR 06/22/2024 1:56 PM HAND ALTERATIONS TAILOR Swathi Caballero NP LAB URINE ORDERABLES Rosalina l Result [facility] [id number] Department [place] [address] * (ABNORMAL) Lipid panel (03/25/2024 9:51 AM CDT) [facility] SCRIBED Cholesterol, Total 160 <200 - NA EXTERNAL LAB SCRIBED HDL 32 >40 - NA EXTERNAL LAB SCRIBED LDL 106 <100 - NA EXTERNAL LAB SCRIBED Triglycerides 112 <150 - NA EXTERNAL LAB Blood 03/25/2024 9:51 AM CDT us Historical Provider LAB BLOOD ORDERABLES Edit ed Result - Final EXTERNAL LAB from Last 3 Months or Most Recently Relevant to Health Maintenance Insurance [employer] ACCESS Care Teams Die Repair Relationship Specialty Start Date End Date Melia Ortiz MD PCP - General Family Medicine 11/20/23
--- OUTSIDE RECORDS SUMMARY | 2024-10-11 12:36 | XMS_ITS | Clinical Summary ---
Author Organization [facility] [place] [address] [place] Address [address] [place] [id number] Care Team Providers Care Coat Tailor Name Role Phone Melia Ortiz MD Primary Care Provider [phone] Allergies No known active allergies Medications atorvastatin (LIPITOR) 80 mg tablet Take 1 tablet (80 mg total) by mouth nightly at bedtime. 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 A1c improved from 11.1% 04/26/24 [...] min walking every day Advise to see Laborer [employer] Follow up in 2 months Hypertension associated with diabetes 04/26/2024 Assessment & Plan (06/22/2024 9:13 AM FLEXIBLE SHAFT WINDER): Chronic problem. Elevated upon arrival. Currently taking diltiazem CD 360mg daily, losartan 100mg daily, spironolactone 25mg daily Assessment & Plan (04/26/2024 11:11 AM CDT): Chronic, uncontrolled On Losartan Advise to work on low salt diet Will reassess in next visit and further adjust Diabetic neuropathy associat ed with type 2 diabetes mellitus 04/26/2024 Assessment & Plan (06/22/2024 9:11 AM FLEXIBLE SHAFT WINDER): Chronic problem. Currently taking Gabapentin 100mg tid [...] 04/26/2024 Assessment & Plan (06/22/2024 8:47 AM FLEXIBLE SHAFT WINDER): Chronic problem. Currently taking Atorvastatin 80mg. Last lipid panel: 03/25/24 JOY=739, UU=357. Assessment & Plan (04/26/2024 11:09 AM CDT): Continue Statin therapy Overweight with body mass in dex (BMI) of 28 to 28.9 in adult 04/26/2024 Assessment & Plan (04/26/2024 11:11 AM CDT): Counseled on diet and exercise and healthy lifestyle habits Medical History Medical History Date Comments Diabetes (HCC) Hypertension Family History Medical History Relation Name Comments Diabetes Mother Glaucoma Mother Relation Name Status Comments Mother Social History Tobacco Use Types Packs/Day Years Used Date Smoking Tobacco: Former Cigarettes Smokeless Tobacco: Never Sex and Gender Information Value Date Recorded Sex Assigned at Not on file Legal Sex Male 1:04 AM FLEXIBLE SHAFT WINDER Gender Identity Not on file Sexual Orientation Not on file Obstetrics History Last Filed Vital Signs Vital Sign Reading Time Taken Comments Blood Pressure 148/78 06/22/2024 9:13 AM FLEXIBLE SHAFT WINDER has not yet taken antihypertensives today Pulse 85 06/22/2024 8:29 AM FLEXIBLE SHAFT WINDER Temperature - - Respiratory Rate 18 06/22/2024 8:29 AM FLEXIBLE SHAFT WINDER Oxygen Saturation 99% 04/28/2024 9:5 3 AM CDT Inhaled Oxygen Concentration - - Weight 99.8 kg (220 lb) 06/22/2024 8:29 AM FLEXIBLE SHAFT WINDER Height 182.9 cm (6' 0.01 ) 06/22/2024 8:29 AM FLEXIBLE SHAFT WINDER Body Mass Index 29.83 06/22/2024 8:29 AM FLEXIBLE SHAFT WINDER Plan of Treatment Health Maintenance Due Date Last Done Comments Colon Cancer Screening-Colonoscopy 1955 Depression Screening 1955 Fall Risk Assessment 1955 Hepatitis C Screening 1955 Prostate Cancer Screening-PSA 1955 eGFR 1955 Dilated Eye Exam 1955 Hepatitis B Screening 1974 Pneumococcal vaccine 65+ (1 of 2 - PCV) 1975 Zoster Vaccine (1 of 2) 2006 DTaP/Tdap/Td Vaccine (2 - Td or Tdap) 07/28/2017 07/28/2007 Abdominal Aortic Aneurysm (A AA) Screen 2021 Well Visit 65+ 2021 Covid-19 Vaccine (4 - 2023-2 5 season) 2024 08/06/2021, 11/06/2020, 10/17/2020 Hemoglobin A1C 12/21/2024 06/22/2024, 04/07, 03/23/2024, Additional history exists Influenza Vaccine (Season Ended) 2025 Lipid Panel 03/25/2025 03/25/2024, 03/07, 09/27/2023 Foot Exam 04/26/2025 04/26/2024 Albumin Creatinine Ratio, Urine 06/22/2025 Procedures Procedure Name Priority Date/Time Associated Diagnosis Comments POCT HEMOGLOBIN A1C Routine 06/22/2024 8 :32 AM FLEXIBLE SHAFT WINDER Type 2 diabetes mellitus with hyperglycemia, with long-term current use of insulin (HCC) ALBUMIN CREATININE RATIO, URINE Routine 06/22/2024 8:00 AM FLEXIBLE SHAFT WINDER Type 2 diabetes mellitus with hyperglycemia, with long-term current use of insulin (HCC) LIPID PANEL Routine 03/25/2024 9:51 AM CDT from Last 3 Months or Most Recently Relevant to Health Maintenance Results * (ABNORMAL) POCT hemoglobin A1c (06/22/2024 8:32 AM FLEXIBLE SHAFT WINDER) Hemoglobin A1C, POC 7.7 4.0 - 5.6 % Blood 06/22/2024 8:32 AM FLEXIBLE SHAFT WINDER us Swathi R. Schleeper [employer] POINT OF CARE TEST ORDERA BLES Final Result * Albumin Creatinine Ratio, Urine (06/22/2024 8:00 AM FLEXIBLE SHAFT WINDER) Albumin Ur <12.0 mg/L Comment: Interpretive Data No reference range established. Current interpretive data was last revised 2018. Creatinine Ur 49.5 mg/dL [facility] Comment: Interpretive Data No reference range established. Current interpretive data was last revised 2018. Albumin Creatinine Ratio, Ur <24 1 - 29 mg/g [facility] Urine 06/22/2024 8:00 AM FLEXIBLE SHAFT WINDER 06/22/2024 1:56 PM FLEXIBLE SHAFT WINDER Swathitiffanie Caballero [facility] [employer] LAB URINE ORDERABLES Rosalina l Result Performing Organization Address City/[facility]/ZIP Co de Phone Number [facility] [address] [place] [address] * (ABNORMAL) Lipid panel (03/25/2024 9:51 AM CDT) SCRIBED Cholesterol, Total 160 <200 - NA EXTERNAL LAB SCRIBED HDL 32 >40 - NA EXTERNAL LAB SCRIBED LDL 106 <100 - NA EXTERNAL LAB SCRIBED Triglycerides 112 <150 - NA EXTERNAL LAB Blood 03/25/2024 9:51 AM CDT Historical Provider LAB BLOOD ORDERABLES Edit ed Result - Final EXTERNAL LAB from Last 3 Months or Most Recently Relevant to Health Maintenance Insurance [facility] ACCESS Member Subscriber Plan / Payer (Ef fective 2022-Present) Name:Natan Auguste Relation to Subscriber:Self Name:Natna Auguste Payer ID:[id number] (NAIC) Type: ALLIANCE Address: [facility] [id number] [place] [id number] Care Teams Coat Tailor Relationship Specialty Start Date End Date Melia Ortiz MD PCP - General Family Medicine 11/20/23
--- OUTSIDE RECORDS SUMMARY | 2024-10-11 12:36 | XMS_ITS | Clinical Summary ---
Author Organization [facility] Address [address] [place], [facility] [address] [place] [address] Phone Care Team Providers Care Spectacle Truer Name Role Phone China Alvarenga MD Primary Care Provi minoo Social History Tobacco Use Types Packs/Day Years Used Date Smoking Tobacco: Never Assessed Sex and Gender Information Value Date Recorded Sex Assigned at Not on file Legal Sex Male 12:39 PM CDT Gender Identity Not on file Sexual Orientation Not on file Plan of Treatment Health Maintenance Due Date Last Done Comments Hepatitis C Virus (HCV) Screening 1955 TdaP Immunization 1955 Cologuard 2006 Immunochemical Fecal Occult Blood 2006 Pneumococcal Immunization (5 0+ years) (1 of 1 - PCV) 2006 Zoster Immunization (1 of 2) 2006 PSA Discussion 2011 Colonoscopy 11/15/2020 05/18/2020 Colorectal Cancer Screening 11/15/2020 Influenza Immunization (#1) 2024 SARS-COV-2 Immunization ( season) 2024 Respiratory Syncytial Virus (RSV) Immunization (Adult) (1 - 1-dose 75+ series) 2031 05/18/2020 Hepatitis B Immunization Aged Out No longer eligible based on patient's age to complete this topic Meningococcal Immunization (ACWY) Aged Out No longer eligible based on patient's age to complete this topic Rotavirus Immunization Aged Out No lo nger eligible based on patient's age to complete this topic Procedures Procedure Name Priority Date/Time Associated Diagnosis Comments HM COLONOSCOPY Routine 05/18/2020 from Last 3 Months or Most Recently Relevant to Health Maintenance Results * HM COLONOSCOPY (05/18/2020) Jose Angel Aguilar DO PROCEDURE/MINOR SURGICAL ORDERA BLES Final Result from Last 3 Months or Most Recently Relevant to Health Maintenance Care Teams Spectacle Truer Relationship Specialty Start Date End Date China Alvarenga MD [address] [place] [address] PCP - General Family Medicine 04/13/20
--- OUTSIDE RECORDS SUMMARY | 2024-10-11 12:36 | XMS_ITS | Encounter Summary ---
Author Organization [facility] Address [address] [place] [address] Care Team Providers Care Raw Sampler Name Role Phone Melia Ortiz MD Primary Care Provider [phone] Encounter Details Date Type Department Care Team (Late st Contact Info) Description 07/15/2024 Telephone [facility] - Centralized Scheduling [address] [place] [phone] Aime Rene MD [address] [facility] [address] [place] [address] Social History Tobacco Use Types Packs/Day Years Used Date Smoking Tobacco: Never Smokeless Tobacco: Never Alcohol Use Standard Drinks/Week Comments Not Currently 0 (1 standard drink = 0.6 oz pur e alcohol) Sex and Gender Information Value Date Recorded Sex Assigned at Not on file Gender Identity Not on file Sexual Orientation Not on file documented as of this encounter Plan of Treatment Not on file documented as of this encounter Visit Diagnoses Not on filedocumented in this encounter Care Teams Raw Sampler Relationship Specialty Start Date End Date Melia Ortiz MD [address] [place] [address] PCP - General Family Medicine 03/24/24 documented as of this encounter
--- OUTSIDE RECORDS SUMMARY | 2024-10-11 12:36 | XMS_ITS | Clinical Summary ---
Author Organization [facility] Address [address] [place] [address] Care Team Providers Care Manager Field Investigations Name Role Phone Melia Ortiz MD Primary Care Provider [phone] [facility],non-owned Affiliates and Associated Physician Practices is amultiple site organization consisting of ambulatory clinics and hospital sitesin [place], [place], [place] and [place]. This disclosure is being madepursuant to the Care Everywhere program and may not contain all information available regarding this patient. Last updated 18.[facility] Allergies No known active allergies Medications * Be aware that medications may not be up to date on this document. Alwaysverify current medications with the patient. Medication Sig Dispensed Refills Start Date End Date Status gabapentin (Neurontin) 100 MG capsule Take 1 (one) capsule by mouth 5 times daily Activ e dapagliflozin propanediol (Farxiga) 10 MG tablet Take 1 (one) tablet by mouth every morning Active dilTIAZem coated beads 24hr (Cardizem CD) 360 MG capsule Take 1 (one) capsule by mouth once daily Active nitroGLYCERIN (Nitrostat) 0.4 MG tablet Dissolve 1 (one) tablet under the tongue every 5 minutes as needed (cct) 3 Each 2 4 Active insulin glargine (Lantus/Semglee) 100 units/mL pen Inject 15 (fifteen) Units subcutaneously at bedtime 15 mL 2 4 Active Additional Information Patient taking differently: 3 UnitsSubcutaneous AT BEDTIME, Reported on 04/01/2024 insulin aspart (NovoLOG) pen Inject 3 (three) Units subcutaneously 3 times daily with meals 3 mL 2 4 Active lancetsIndications :Uncontrolled type 2 diabetes mellitus with hyperglycemia (HCC) Use one to test your blood sugar 100 Each 1 4 Active Blood Glucose Monitoring Suppl ([employer] Verio Flex System) w/Device KITIndications:Typ e 2 diabetes mellitus with hyperglycemia (HCC) USE DIRECTED 1 kit 4 03/26/20 Active Insulin Pen Needle 29G X 12.7MM MISCIndications:Ty pe 2 diabetes mellitus with hyperglycemia (HCC) USE TO INJECT FOUR TIMES A DAY 100 Each 4 03/26/20 Active blood glucose test stripIndications:T ype 2 diabetes mellitus with hyperglycemia (HCC) USE TO TEST 4 TO 5 TIMES DAILY AND NEEDED 100 strip 1 4 03/26/20 Active Additional Information Patient taking differently: 3 TIMES DAILY, Reported on 04/01/2024 metFORMIN (Glucophage) 500 MG tabletIndications: Type 2 diabetes mellitus with diabetic neuropathy, with long-term current use of insulin (HCC) Take 1 (one) tablet by mouth once daily 60 tablet 4 Active spironolactone (Aldactone) 25 MG tablet Take 1 (one) tablet by mouth once daily 4 Active aspirin (Aspirin) 81 MG chew tablet Take 1 (one) tablet by mouth once daily 90 tablet 3 4 Active atorvastatin (Lipitor) 80 MG tablet Take 1 (one) tablet by mouth at bedtime 90 tablet 3 4 Active losartan (Cozaar) 100 MG tablet Take 1 (one) tablet by mouth once daily 90 tablet 3 4 Active traZODone (Desyrel) 50 MG tablet TAKE 1 TAB BY MOUTH EVERY DAY AT BEDTIME NEEDED FOR INSOMNIA 4 Active Continuous Glucose Sensor (Dexcom G7 Sensor) [facility] USE ONE SENSOR EVERY 10 DAYS 4 Active carvedilol (Coreg) 6.25 MG tablet Take 1 (one) tablet by mouth 2 times daily with morning and evening meal 180 tablet 4 5 Active Active Problems Problem Noted Date Diagnosed Date 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 Coronary artery disease 04/01/2024 HTN (hypertension) 03/25/2024 Type 2 diabetes mellitus with diabetic neuropath y 03/25/2024 Hyperglycemia 03/25/2024 HLD (hyperlipidemia) 03/25/2024 Atypical chest pain 03/25/2024 Hypokalemia 03/25/2024 Resolved Problems Problem Noted Date Diagnosed Date Resolved Date Palpitations 03/24/2024 03/25/2024 Encounters Date Type Department Care Team Description 07/15/2024 Telephone [facility] - Centralized Scheduling [facility] [place] [address] Aime Rene MD from Last 3 Months Social History Tobacco Use Types Packs/Day Years Used Date Smoking Tobacco: Never Smokeless Tobacco: Never Tobacco Cessation:Counseling Given: Not Answered Alcohol Use Standard Drinks/Week Comments Not Currently 0 (1 standard drink = 0.6 oz pur e alcohol) Sex and Gender Information Value Date Recorded Sex Assigned at Not on file Gender Identity Not on file Sexual Orientation Not on file Last Filed Vital Signs Vital Sign Reading Time Taken Comments Blood Pressure 144/82 07/08/2024 9:20 AM ICE CREAM DIPPER Pulse 74 07/08/2024 9:20 AM ICE CREAM DIPPER Temperature 36.8 C (98.2 F) 04/01/2024 9:09 AM CDT Respiratory Rate 16 07/08/2024 9:20 AM ICE CREAM DIPPER Oxygen Saturation 99% 07/08/2024 9:20 AM ICE CREAM DIPPER Inhaled Oxygen Concentration - - Weight 101.2 kg (223 lb) 07/08/2024 9:20 AM ICE CREAM DIPPER Height 182.9 cm (6') 07/08/2024 9:20 AM ICE CREAM DIPPER Body Mass Index 30.24 07/08/2024 9:20 AM ICE CREAM DIPPER Plan of Treatment Health Maintenance Due Date Last Done Comments COLOGUARD (AGES 45-75) - COL ON CA SCREENING 1956 COLON MONITORING 1956 COLONOSCOPY - COLON CA SCREENING 1956 CT COLONOGRAPHY - COLON CA SCREENING 1956 Colorectal Cancer Screening 1956 FIT - COLON CA SCREENING 1956 FLEX SIG - COLON CA SCREENING 1956 DTAP/TDAP/TD VACCINES (1 - Tdap) 1975 PNEUMOCOCCAL VACCINE 50+ (1 of 2 - PCV) 1975 ZOSTER VACCINE (1 of 2) 2006 Respiratory Syncytial Virus (RSV) Vaccine Pt: or over 60 yrs (1 - Risk 60-74 years 1-dose series) 2016 COVID-19 VACCINE (2023-2 5 season) 2024 08/06/2021, 11/06/2020, 10/17/2020 INFLUENZA VACCINE (#1) 2024 DIABETES RETINOPATHY SCREENING 03/25/2024 DIABETES-FOOT EXAM WITH MONOFILAMENT 03/25/2024 DEPRESSION SCREENING 07/07/2024 DIABETES - URINE PROTEIN SCREENING 07/07/2024 DIABETES-HGB A1C 09/20/2024 06/22/2024, 04/26/2024, 03/23/2024 DIABETES-SERUM CREATININE 03/25/20252023, 03/23/2024 HEPATITIS C SCREENING Completed 03/23/2024 HEPATITIS B VACCINE Aged Out No longe r eligible based on patient's age to complete this topic HIB VACCINE Aged Out No longer eligi ble based on patient's age to complete this topic HPV VACCINE Aged Out No longer eligi ble based on patient's age to complete this topic MENINGOCOCCAL (Group B) VACCINE SHARED DECISION-MAKING Aged Out No longer eligible based on patient's age to complete this topic MENINGOCOCCAL GROUPS A/C/Y/W VACCINE Aged Out No longer eligible b ased on patient's age to complete this topic Procedures Procedure Name Priority Date/Time Associated Diagnosis Comments BASIC METABOLIC PANEL (CALCIUM TOTAL) STAT 03/25/2024 9:51 AM CDT Uncontrolled type 2 diabetes mellitus with hyperglycemia HEPATITIS C AB SCREEN RFLX NAAT QUANT STAT 03/23/2024 1:15 PM CDT HEMOGLOBIN A1C PEDRO 03/23/2024 1:15 PM CDT from Last 3 Months or Most Recently Relevant to Health Maintenance Results * (ABNORMAL) BASIC METABOLIC PANEL (CALCIUM TOTAL) (03/25/2024 9:51 AM CDT) BUN 17 7 - 26 mg/dL 03/25/2024 10:46 AM CDT [facility] Creatinine 0.73 0.71 - 1.16 mg/dL 03/25/2024 10:46 AM [facility] Sodium 140 136 - 145 mmol/L 03/25/2024 10:46 AM [facility] Potassium 3.3(L) 3.5 - 4.5 mmol/L 03/25/2024 10:46 AM [facility] Chloride 107 98 - 107 mmol/L 03/25/2024 10:46 AM [facility] CO2 28 22 - 29 mmol/L 03/25/2024 10:46 AM [facility] Glucose 324(H) 70 - 115 mg/dL 03/25/2024 10:46 AM [facility] Calcium 9.5 8.4 - 10.2 mg/dL 03/25/2024 10:46 AM [facility] Anion Gap 5(L) 6 - 16 03/25/2024 10:46 AM [facility] BUN/Creatinine Ratio 23 7 - 23 03/25/2024 10:46 AM [facility] Osmolality Calculated 304(H) 275 - 295 mOsm/kg 03/25/2024 10:46 AM [facility] eGFR by CKD-EPI >90 >=90 mL/min/1.7 3 m2 03/25/2024 10:46 AM [facility] Blood BLOOD SPECIMEN / Unknown Lab Venipuncture / Unknown 03/25/2024 9:51 AM CDT 03/25/2024 10:15 AM T Quan Barrera INSTRUCTOR [employer]ATIC [employer]-BUSINESS SERVICES TECH LAB - CHEMI STRY ORDERABLES [facility] [address] [place] [address], [facility] [phone] * HEPATITIS C AB SCREEN RFLX NAAT QUANT (03/23/2024 1:15 PM CDT) Hepatitis C Antibody Non-react courtney Non-reac tive 03/23/2024 2:07 PM [facility] Comment:Hepatitis C Antibody screen indicates no serologic evidence of past or current infection with Hepatitis C Virus. Patients with unexplained liver disease who are immunocompromised or suspected of having acute Hepatitis C infection may benefit from Nucleic Acid Test (SONA) for Hepatitis C Viral RNA to confirm Hepatitis C status. Blood BLOOD SPECIMEN / Unknown Venipuncture / Unknown 03/23/2024 1:15 PM CDT 03/23/2024 1:20 PM CDT Russ Andrew MD LAB - CHEMISTRY [facility] Performing Organization Address City/[facility]/ZIP Co de Phone Number [address] [address], [facility] [phone] * (ABNORMAL) HEMOGLOBIN A1C (03/23/2024 1:15 PM CDT) Hemoglobin A1c 13.5(H) <=5.6 % 03/23/2024 3:05 PM CDT [facility] Estimated Average Glucose 341 mg/dL 03/23/2024 3:05 PM CDT [facility] Comment: HbA1c Interpretation: Normal : < 5.7% Pre-diabetes: 5.7-6.4% Diabetes: Equal to or greater than 6.5% Test results diagnostic of diabetes should be repeated for confirmation. Treatment target values recommended by ADA and other clinical organizations should be used to evaluate metabolic control in patients. Reference: [employer] Association, Standards of Care in Diabetes -2020 In patients 70 years and older consider HbA1c target range of 7.0-7.5% (Reference: Chris Rodriguez et al. JAMDA. 2012) The Sebia assay for the measurement of HbA1c is a National Glycohemoglobin Standardization Program (NGSP) certified method. Blood BLOOD SPECIMEN WITH EDTA / Unknown Venipuncture / Unknown 03/23/2024 1:15 PM CDT 03/23/2024 1:22 PM CDT Rosalinda Ayers MD LAB - CHEMISTRY [facility] DES[facility] [address] [address], [place] [phone] from Last 3 Months or Most Recently Relevant to Health Maintenance Advance Directives * Full Code (Latest Code Status on File) Date Activated Date Inactivated Comments 03/24/2024 4:51 PM 03/26/2024 5:28 PM Care Teams Manager Field Investigations Relationship Specialty Start Date End Date Melia Ortiz MD [address] [place] [address] PCP - General Family Medicine 03/24/24
== END 2024-10-11 10:51 | disposition home or self-care (01) ==
PROVIDERS: PCP Family Medicine; Visit Provider Student in an Organized Health Care Education/Training Program
DX: M17.12 Unilateral primary osteoarthritis, left knee (principal)
CPT/HCPCS: 73560

== ENCOUNTER 2024-10-20 12:26 | Outpatient (CLI) | payer BC, SELFPAY ==
--- NOTE | 2024-10-20 12:50 | ECG_ITS ---
Test Date: 2024-10-20 12:58:40 Measurements Intervals [place] Rate: 60 P: 83 MO: 174 QRS: -6 QRSD: 98 T: 27 QT: 411 QTc: 411 Interpretive Statements SINUS RHYTHM CANNOT R/O SEPTAL INFARCT, AGE INDETERMINATE BASELINE ARTIFACT- I, III, AVR, AVL, AVF ABNORMAL ECG Compared to ECG 03/11/2024 06:23:33 No significant changes Electronically Signed On 10-20-2024 13:18:50 CDT by Christiano Goode D.O.
[2024-10-20 12:57] LABS: Hematocrit 38.9 % (42.0-52.0); Mean Corpuscular HGB Conc 33.4 g/dl (32-36); Mean Corpuscular Hemoglobin 27.8 pg (26-34); Mean Corpuscular Volume 83.3 fl (80-100); Mean Platelet Volume 10.5 fl (7.4-10.4); Platelet Count Result 300 k/mm3 (150-375); Red Blood Count 4.67 M/mm3 (4.6-6.20); Red Cell Distribution Width 14.4 % (11.5-14.5); White Blood Count 7.7 K/mm3 (4.5-10.0)
[2024-10-20 13:09] LABS: Alanine Aminotransferase 20 U/L (6-50); Albumin Level 4.5 g/dL (3.5-5.1); Alkaline Phosphatase 139 U/L (38-126); Anion Gap 9 mmol/L (4-12); Aspartate Amino Transferase 24 U/L (17-59); Bilirubin,Total 0.4 mg/dL (0.2-1.3); Blood Urea Nitrogen 16 mg/dL (9-20); Calcium 9.4 mg/dL (8.4-10.2); Carbon Dioxide 23 mmol/L (22-30); Chloride 109 mmol/L (98-107); Cholesterol 93 mg/dL (0-200); Estimated Glomerular Filt Rate > 60; Glucose 124 mg/dL (65-110); HDL Direct 37 mg/dL; Potassium 3.9 mmol/L (3.4-5.0); Sodium 141 mmol/L (137-145); Triglycerides 61 mg/dL (<150)
[2024-10-20 13:20] LABS: LDL Cholesterol Direct 38 mg/dL
--- OUTSIDE RECORDS SUMMARY | 2024-10-20 13:28 | XMS_ITS | Clinical Summary ---
Author Organization [facility] [employer] Address [address] [place] [address] Care Team Providers Care News Clerk Name Role Phone Melia Ortiz MD Primary Care Provider [phone] Source Comments [facility] [employer],non-owned Affiliates and Associated Physician Practices is amultiple site organization consisting of ambulatory clinics and hospital sitesin [place], [place], [place] and [place]. This disclosure is being madepursuant to the Care Everywhere program and may not contain all information available regarding this patient. Last updated 18.[facility] [employer] Allergies No known active allergies Medications * Be aware that medications may not be up to date on this document. Alwaysverify current medications with the patient. gabapentin (Neurontin) 100 MG capsule Take 1 (one) capsule by mouth 5 times daily Active dapagliflozin propanediol (Farxiga) 10 MG tablet Take 1 (one) tablet by mouth every morning Active dilTIAZem coated beads 24hr (Cardizem CD) 360 MG capsule Take 1 (one) capsule by mouth once daily Activ e nitroGLYCERIN (Nitrostat) 0.4 MG tablet Dissolve 1 (one) tablet under the tongue every 5 minutes as needed (cct) 3 Each 2 03/26/20 24 Active insulin glargine (Lantus/Semglee) 100 units/mL pen Inject 15 (fifteen) Units subcutaneously at bedtime 15 mL 2 03/26/20 24 Active Additional Information Patient taking differently: 3 UnitsSubcutaneous AT BEDTIME, Reported on 04/01/2024 insulin aspart (NovoLOG) pen Inject 3 (three) Units subcutaneously 3 times daily with meals 3 mL 2 03/26/20 Active lancetsIndicatio ns:Uncontrolled type 2 diabetes mellitus with hyperglycemia (HCC) Use one to test your blood sugar 100 Each 1 03/26/20 24 Active Blood Glucose Monitoring Suppl ([employer] Verio Flex System) w/Device KITIndications:T ype 2 diabetes mellitus with hyperglycemia (HCC) USE DIRECTED 1 kit 03/26/20 24 2024 Active Insulin Pen Needle 29G X 12.7MM MISCIndications: Type 2 diabetes mellitus with hyperglycemia (HCC) USE TO INJECT FOUR TIMES A DAY 100 Each 03/26/20 24 2024 Active blood glucose test stripIndications :Type 2 diabetes mellitus with hyperglycemia (HCC) USE TO TEST 4 TO 5 TIMES DAILY AND NEEDED 100 strip 1 03/26/20 24 2024 Active Additional Information Patient taking differently: 3 TIMES DAILY, Reported on 04/01/2024 metFORMIN (Glucophage) 500 MG tabletIndication s:Type 2 diabetes mellitus with diabetic neuropathy, with long-term current use of insulin (HCC) Take 1 (one) tablet by mouth once daily 60 tablet 04/01/20 Active spironolactone (Aldactone) 25 MG tablet Take 1 (one) tablet by mouth once daily 04/07/20 24 Active aspirin (Aspirin) 81 MG chew tablet Take 1 (one) tablet by mouth once daily 90 tablet 3 04/14/20 24 Active atorvastatin (Lipitor) 80 MG tablet Take 1 (one) tablet by mouth at bedtime 90 tablet 3 04/14/20 24 Active losartan (Cozaar) 100 MG tablet Take 1 (one) tablet by mouth once daily 90 tablet 3 04/14/20 24 Active traZODone (Desyrel) 50 MG tablet TAKE 1 TAB BY MOUTH EVERY DAY AT BEDTIME NEEDED FOR INSOMNIA 05/19/20 Active Continuous Glucose Sensor (Dexcom G7 Sensor) [facility] USE ONE SENSOR EVERY 10 DAYS 05/24/20 Active carvedilol (Coreg) 6.25 MG tablet Take 1 (one) tablet by mouth 2 times daily with morning and evening meal 180 tablet 4 07/08/19 Active Active Problems Problem Noted Date Diagnosed Date 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 Coronary artery disease 04/01/2024 HTN (hypertension) 03/25/2024 Type 2 diabetes mellitus with diabetic neuropath y 03/25/2024 Hyperglycemia 03/25/2024 HLD (hyperlipidemia) 03/25/2024 Atypical chest pain 03/25/2024 Hypokalemia 03/25/2024 Resolved Problems Problem Noted Date Diagnosed Date Resolved Date Palpitations 03/24/2024 03/25/2024 Social History Tobacco Use Types Packs/Day Years Used Date Smoking Tobacco: Never Smokeless Tobacco: Never Tobacco Cessation:Counseling Given: Not Answered Alcohol Use Standard Drinks/Week Comments Not Currently 0 (1 standard drink = 0.6 oz pur e alcohol) Sex and Gender Information Value Date Recorded Sex Assigned at Not on file Legal Sex Male 2:24 PM REPAIR SUPERVISOR Gender Identity Not on file Sexual Orientation Not on file Last Filed Vital Signs Vital Sign Reading Time Taken Comments Blood Pressure 144/82 07/08/2024 9:20 AM REPAIR SUPERVISOR Pulse 74 07/08/2024 9:20 AM REPAIR SUPERVISOR Temperature 36.8 C (98.2 F) 04/01/2024 9:09 AM CDT Respiratory Rate 16 07/08/2024 9:20 AM REPAIR SUPERVISOR Oxygen Saturation 99% 07/08/2024 9:20 AM REPAIR SUPERVISOR Inhaled Oxygen Concentration - - Weight 101.2 kg (223 lb) 07/08/2024 9:20 AM REPAIR SUPERVISOR Height 182.9 cm (6') 07/08/2024 9:20 AM REPAIR SUPERVISOR Body Mass Index 30.24 07/08/2024 9:20 AM REPAIR SUPERVISOR Plan of Treatment Health Maintenance Due Date [...] 60-74 years 1-dose series) 2016 COVID-19 VACCINE (4 - 2023-2 5 season) 2024 08/06/2021, 11/06/2020, 10/17/2020 DIABETES RETINOPATHY SCREENING 03/25/2024 DIABETES-FOOT EXAM WITH MONOFILAMENT 03/25/2024 DEPRESSION SCREENING 07/07/2024 DIABETES - URINE PROTEIN SCREENING 07/07/2024 DIABETES-HGB A1C 09/20/2024 06/22/2024, 04/26/2024, 03/23/2024 INFLUENZA VACCINE (Season Ended) 2025 DIABETES-SERUM CREATININE 03/25/20252023, 03/23/2024 HEPATITIS C SCREENING [...] - 26 mg/dL 03/25/2024 10:[address] [facility] Creatinine 0.73 0.71 - 1.16 mg/dL 03/25/2024 10:[address] [facility] Sodium 140 136 - 145 mmol/L 03/25/2024 10:46 AM [facility] Potassium 3.3(L) 3.5 - 4.5 mmol/L 03/25/2024 10:46 AM [facility] Chloride 107 98 - 107 mmol/L 03/25/2024 10:46 AM [facility] CO2 28 22 - 29 mmol/L 03/25/2024 10:46 AM [facility] Glucose 324(H) 70 - 115 mg/dL 03/25/2024 10:46 AM [facility] Calcium 9.5 8.4 - 10.2 mg/dL 03/25/2024 10:46 AM [facility] Anion Gap 5(L) 6 - 16 03/25/2024 10:46 AM [facility] BUN/Creatinine Ratio 23 7 - 23 03/25/2024 10:46 AM [facility] Osmolality Calculated 304(H) 275 - 295 mOsm/kg 03/25/2024 10:46 AM [facility] eGFR by CKD-EPI >90 >=90 mL/min/1.7 3 m2 03/25/2024 10:46 AM [facility] Blood BLOOD SPECIMEN / Unknown Lab Venipuncture / Unknown 03/25/2024 9:51 AM CDT 03/25/2024 10:15 AM CDT us Quan Barrera INDUSTRIAL SWEEPER CLEANER-HOUSE WORKER LAB - CHEMISTRY ORD ERABLES Final Result [facility] [address] [place] [address], [facility] [phone] * HEPATITIS C AB SCREEN RFLX NAAT QUANT (03/23/2024 1:15 PM CDT) Hepatitis C Antibody Non-react courtney Non-reac tive 03/23/2024 2:07 PM [facility] Comment:Hepatitis C Antibody screen indicates no serologic [...] 1:15 PM CDT 03/23/2024 1:20 PM CDT us Russ Andrew MD LAB - CHEMISTRY ORDERABLES Fi nal Result Performing Organization Address City/[facility]/ZIP Co de Phone Number [facility] [address] [place] [address], [place] [phone] * (ABNORMAL) HEMOGLOBIN A1C (03/23/2024 1:15 PM CDT) Hemoglobin A1c 13.5(H) <=5.6 % 03/23/2024 3:[address] [facility] Estimated Average Glucose 341 mg/dL 03/23/2024 3:[address] [facility] Comment: HbA1c Interpretation: Normal : < 5.7% Pre-diabetes: 5.7-6.4% Diabetes: Equal to or greater than 6.5% Test results diagnostic of diabetes should be repeated for confirmation. Treatment target values recommended by ADA and other clinical organizations should be used to evaluate metabolic control in patients. Reference: [place] [employer], Standards of Care in Diabetes -2020 In patients 70 years and older consider HbA1c target range of 7.0-7.5% (Reference: Chris Rodriguez et al. JAMDA. 2012) The Sebia assay for the measurement of HbA1c is a National Glycohemoglobin Standardization Program (NGSP) certified method. Blood BLOOD SPECIMEN WITH EDTA / Unknown Venipuncture / Unknown 03/23/2024 1:15 PM CDT 03/23/2024 1:22 PM CDT us Rosalinda Ayers MD LAB - CHEMISTRY ORDERABLES Fin al Result Performing Organization Address City/[facility]/ZIP Co de Phone Number [facility] [address] [place] [address], [place] [phone] from Last 3 Months or Most Recently Relevant to Health Maintenance Insurance [employer] [facility] * Guarantor: NATAN AUGUSTE Account Type Relation to Patient Date of Phone Billing Address Personal/Family [address] [place] [address] [facility] Advance Directives * Full Code (Latest Code Status on File) Date Activated Date Inactivated Comments 03/24/2024 4:51 PM 03/26/2024 5:28 PM Care Teams News Clerk Relationship Specialty Start Date End Date Melia Ortiz MD [address] [place] [address] PCP - General Family Medicine 03/24/24
--- OUTSIDE RECORDS SUMMARY | 2024-10-20 13:28 | XMS_ITS | Referral Summary ---
Author Organization [facility] [place] [address] Address [address] [place] [id number] Care Team Providers Care Projection Camera Operator Name Role Phone Melia Ortiz MD Primary Care Provider [phone] Allergies No known active allergies Medications atorvastatin (LIPITOR) 80 mg tablet Take 1 tablet (80 mg total) by mouth nightly at bedtime. Active OneTouch Verio test strips strip 4 Active dapagliflozin propanediol (FARXIGA) 10 mg tablet Take 1 tablet (10 mg total) by mouth customer experience analyst before breakfast Active diltiaZEM CD (CARDIZEM CD) [...] 04/26/2024 Assessment & Plan (06/22/2024 9:11 AM OUTPATIENT RECEPTIONIST): Chronic problem. A1c improved from 11.1% 04/26/24 [...] min walking every day Advise to see Television Tube Inspector Follow up in 2 months Hypertension associated with diabetes 04/26/2024 Assessment & Plan (06/22/2024 9:13 AM OUTPATIENT RECEPTIONIST): Chronic problem. Elevated upon arrival. Currently taking diltiazem CD 360mg daily, losartan 100mg daily, spironolactone 25mg daily Assessment & Plan (04/26/2024 11:11 AM CDT): Chronic, uncontrolled On Losartan Advise to work on low salt diet Will reassess in next visit and further adjust Diabetic neuropathy associat ed with type 2 diabetes mellitus 04/26/2024 Assessment & Plan (06/22/2024 9:11 AM OUTPATIENT RECEPTIONIST): Chronic problem. Currently taking Gabapentin 100mg tid but worsening pain at HS. Will increase HS to 300mg. Reviewed foot care; needs to lotion daily. Aware to check feet nightly, not to go barefoot. Assessment & Plan (04/26/2024 11:09 AM CDT): Chronic, improving Continue Gabapentin for symptomatic management Work on tighter glycemic control Hyperlipidemia associated with type 2 diabetes layla agrcia 04/26/2024 Assessment & Plan (06/22/2024 8:47 AM OUTPATIENT RECEPTIONIST): Chronic problem. Currently taking Atorvastatin 80mg. Last lipid panel: 03/25/24 CQV=604, QS=459. Assessment & Plan (04/26/2024 11:09 AM CDT): [...] on file Legal Sex Male 1:04 AM OUTPATIENT RECEPTIONIST Gender Identity Not on file Sexual Orientation Not on file Last Filed Vital Signs Vital Sign Reading Time Taken Comments Blood Pressure 148/78 06/22/2024 9:13 AM OUTPATIENT RECEPTIONIST has not yet taken antihypertensives today Pulse 85 06/22/2024 8:29 AM OUTPATIENT RECEPTIONIST Temperature - - Respiratory Rate 18 06/22/2024 8:29 AM OUTPATIENT RECEPTIONIST Oxygen Saturation 99% 04/28/2024 9:5 3 AM CDT Inhaled Oxygen Concentration - - Weight 99.8 kg (220 lb) 06/22/2024 8:29 AM OUTPATIENT RECEPTIONIST Height 182.9 cm (6' 0.01 ) 06/22/2024 8:29 AM OUTPATIENT RECEPTIONIST Body Mass Index 29.83 06/22/2024 8:29 AM OUTPATIENT RECEPTIONIST Plan of Treatment Not on file Procedures Procedure Name Priority Date/Time Associated Diagnosis Comments POCT HEMOGLOBIN A1C Routine 06/22/2024 8 :32 AM OUTPATIENT RECEPTIONIST Type 2 diabetes mellitus with hyperglycemia, with long-term current use of insulin (HCC) ALBUMIN CREATININE RATIO, URINE Routine 06/22/2024 8:00 AM OUTPATIENT RECEPTIONIST Type 2 diabetes mellitus with hyperglycemia, with long-term current use of insulin (HCC) LIPID PANEL Routine 03/25/2024 9:51 AM CDT from Last 3 Months or Most Recently Relevant to Health Maintenance Results * (ABNORMAL) POCT hemoglobin A1c (06/22/2024 8:32 AM OUTPATIENT RECEPTIONIST) Pathologist [facility] Hemoglobin A1C, POC 7.7 4.0 - 5.6 % Blood 06/22/2024 8:32 AM OUTPATIENT RECEPTIONIST Swathi Caballero NP POINT OF CARE TEST ORDERA BLES Final Result * Albumin Creatinine Ratio, Urine (06/22/2024 8:00 AM OUTPATIENT RECEPTIONIST) [facility] Albumin Ur <12.0 mg/L Comment: Interpretive Data No reference range established. Current interpretive data was last revised 2018. Creatinine Ur 49.5 mg/dL [facility] Comment: Interpretive Data No reference range established. Current interpretive data was last revised 2018. Albumin Creatinine Ratio, Ur <24 1 - 29 mg/g [facility] Urine 06/22/2024 8:00 AM OUTPATIENT RECEPTIONIST 06/22/2024 1:56 PM OUTPATIENT RECEPTIONIST Swathi Caballero NP LAB URINE ORDERABLES Rosalina l Result [facility] [id number] Department [place] [address] * (ABNORMAL) Lipid panel (03/25/2024 9:51 AM CDT) [facility] SCRIBED Cholesterol, Total 160 <200 - NA EXTERNAL LAB SCRIBED HDL 32 >40 - NA EXTERNAL LAB SCRIBED LDL 106 <100 - NA EXTERNAL LAB SCRIBED Triglycerides 112 <150 - NA EXTERNAL LAB Blood 03/25/2024 9:51 AM CDT us Historical Provider LAB BLOOD ORDERABLES Edit ed Result - Final EXTERNAL LAB from Last 3 Months or Most Recently Relevant to Health Maintenance Insurance [employer] [facility] Address: [place] [address] Care Teams Projection Camera Operator Relationship Specialty Start Date End Date Melia Ortiz MD PCP - General Family Medicine 11/20/23
--- OUTSIDE RECORDS SUMMARY | 2024-10-20 13:28 | XMS_ITS | Clinical Summary ---
Author Organization [facility] Address [address], [facility] [address] [place] [address] Phone Care Team Providers Care Entry Level Accountant Name Role Phone China Alvarenga MD Primary [...] Recently Relevant to Health Maintenance Care Teams Entry Level Accountant Relationship Specialty Start Date End Date China Alvarenga MD [address] [place] [address] PCP - General Family Medicine 04/13/20
--- OUTSIDE RECORDS SUMMARY | 2024-10-20 13:28 | XMS_ITS | Clinical Summary ---
Author Organization [facility] [place] [address] Address [address] [place] [phone] Care Team Providers Care Stripper Cutter Machine Name Role Phone Melia Ortiz MD Primary Care Provider [phone] Allergies No known active allergies Medications atorvastatin (LIPITOR) 80 mg tablet Take 1 tablet (80 mg total) by mouth nightly at bedtime. Active OneTouch Verio test strips strip 4 Active dapagliflozin propanediol (FARXIGA) 10 mg tablet Take 1 tablet (10 mg total) by mouth associate publisher before breakfast Active diltiaZEM CD (CARDIZEM CD) [...] 04/26/2024 Assessment & Plan (06/22/2024 9:11 AM BINDER STRIPPER HAND): Chronic problem. A1c improved from 11.1% 04/26/24 [...] min walking every day Advise to see Office Agent Follow up in 2 months Hypertension associated with diabetes 04/26/2024 Assessment & Plan (06/22/2024 9:13 AM BINDER STRIPPER HAND): Chronic problem. Elevated upon arrival. Currently taking diltiazem CD 360mg daily, losartan 100mg daily, spironolactone 25mg daily Assessment & Plan (04/26/2024 11:11 AM CDT): Chronic, uncontrolled On Losartan Advise to work on low salt diet Will reassess in next visit and further adjust Diabetic neuropathy associat ed with type 2 diabetes mellitus 04/26/2024 Assessment & Plan (06/22/2024 9:11 AM BINDER STRIPPER HAND): Chronic problem. Currently taking Gabapentin 100mg tid [...] 04/26/2024 Assessment & Plan (06/22/2024 8:47 AM BINDER STRIPPER HAND): Chronic problem. Currently taking Atorvastatin 80mg. Last lipid panel: 03/25/24 EPV=293, AR=616. Assessment & Plan (04/26/2024 11:09 AM CDT): [...] on file Legal Sex Male 1:04 AM BINDER STRIPPER HAND Gender Identity Not on file Sexual Orientation Not on file Obstetrics History Last Filed Vital Signs Vital Sign Reading Time Taken Comments Blood Pressure 148/78 06/22/2024 9:13 AM BINDER STRIPPER HAND has not yet taken antihypertensives today Pulse 85 06/22/2024 8:29 AM BINDER STRIPPER HAND Temperature - - Respiratory Rate 18 06/22/2024 8:29 AM BINDER STRIPPER HAND Oxygen Saturation 99% 04/28/2024 9:5 3 AM CDT Inhaled Oxygen Concentration - - Weight 99.8 kg (220 lb) 06/22/2024 8:29 AM BINDER STRIPPER HAND Height 182.9 cm (6' 0.01 ) 06/22/2024 8:29 AM BINDER STRIPPER HAND Body Mass Index 29.83 06/22/2024 8:29 AM BINDER STRIPPER HAND Plan of Treatment Health Maintenance Due Date [...] HEMOGLOBIN A1C Routine 06/22/2024 8 :32 AM BINDER STRIPPER HAND Type 2 diabetes mellitus with hyperglycemia, with long-term current use of insulin (HCC) ALBUMIN CREATININE RATIO, URINE Routine 06/22/2024 8:00 AM BINDER STRIPPER HAND Type 2 diabetes mellitus with hyperglycemia, with long-term current use of insulin (HCC) LIPID PANEL Routine 03/25/2024 9:51 AM CDT from Last 3 Months or Most Recently Relevant to Health Maintenance Results * (ABNORMAL) POCT hemoglobin A1c (06/22/2024 8:32 AM BINDER STRIPPER HAND) Hemoglobin A1C, POC 7.7 4.0 - 5.6 % Blood 06/22/2024 8:32 AM BINDER STRIPPER HAND us Swathi R. Schleeper FOOD PREPARATION SUPERVISOR POINT OF CARE TEST ORDERA BLES Final Result * Albumin Creatinine Ratio, Urine (06/22/2024 8:00 AM BINDER STRIPPER HAND) Albumin Ur <12.0 mg/L Comment: Interpretive Data No reference range established. Current interpretive data was last revised 2018. Creatinine Ur 49.5 mg/dL [facility] Comment: Interpretive Data No reference range established. Current interpretive data was last revised 2018. Albumin Creatinine Ratio, Ur <24 1 - 29 mg/g [facility] Urine 06/22/2024 8:00 AM BINDER STRIPPER HAND 06/22/2024 1:56 PM BINDER STRIPPER HAND Swathitiffanie Caballero FOOD PREPARATION SUPERVISOR LAB URINE ORDERABLES Rosalina l Result Performing Organization Address City/[facility]/ZIP Co de Phone Number [facility] [address] Department [place] [address] * (ABNORMAL) Lipid panel (03/25/2024 9:51 AM [...] Most Recently Relevant to Health Maintenance Insurance [facility] ACC[facility] Member Subscriber Plan / Payer (Ef fective 2022-Present) Name:Natan Auguste Relation to Subscriber:Self Name:Natan Auguste Payer ID:[id number] (NAIC) Type: [employer] Address: [facility] [address] [place] [id number] Care Teams Stripper Cutter Machine Relationship Specialty Start Date End Date Melia Ortiz MD PCP - General Family Medicine 11/20/23
--- OUTSIDE RECORDS SUMMARY | 2024-10-20 13:28 | XMS_ITS | Encounter Summary ---
Author Organization [facility] Address [address] [place] [address] Care Team Providers Care Cavalry Scout Name Role Phone Melia Ortiz MD Primary Care Provider [phone] Encounter Details Date Type Department Care Team (Late st Contact Info) Description 07/15/2024 Telephone [facility] - Centralized Scheduling [address] [place] [phone] Aime Rene MD [address] [facility] [address] [place] [address] Social History Tobacco Use Types Packs/Day Years Used Date Smoking Tobacco: Never Smokeless Tobacco: Never Alcohol Use Standard Drinks/Week Comments Not Currently 0 (1 standard drink = 0.6 oz pur e alcohol) Sex and Gender Information Value Date Recorded Sex Assigned at Not on file Legal Sex Male 2:24 PM SUPERVISOR MOLD SHOP Gender Identity Not on file Sexual Orientation Not on file documented as of this encounter Plan of Treatment Not on file documented as of this encounter Visit Diagnoses Not on filedocumented in this encounter Care Teams Cavalry Scout Relationship Specialty Start Date End Date Melia Ortiz MD [address] [place] [address] PCP - General Family Medicine 03/24/24 documented as of this encounter
[2024-10-20 13:40] LABS: Prostate Specific Antigen 1.5 ng/mL (< OR = 4.0); Thyroid Stimulating Hormone Reflex 0.317 uIU/mL (0.465-4.68)
[2024-10-20 15:40] LABS: Free T4 Free Thyroxine Reflex 1.22 ng/dL (0.78-2.19)
[2024-10-20 17:34] LABS: Total Triiodothyronine (T3) 1.31 NG/ML (0.97-1.69)
== END 2024-10-20 12:27 | disposition home or self-care (01) ==
LOC: ANHLAB 12:27
PROVIDERS: PCP Family Medicine; Visit Provider Family Medicine
DX: Z12.5 Encounter for screening for malignant neoplasm of prostate (principal); R07.9 Chest pain, unspecified; R53.83 Other fatigue; E11.9 Type 2 diabetes mellitus without complications; E78.2 Mixed hyperlipidemia
CPT/HCPCS: 36415; 80053; 80061; 84153; 84439; 84443; 84480; 85027; 93005; G0103

== ENCOUNTER 2025-01-27 15:15 | Inpatient (IN) | payer BC, MEDICARE, SELFPAY ==
--- NOTE | ~2025-01-27 | US_ITS ---
EXAMINATION: US arterial duplex LE RT DATE: 01/27/2025 18:22 INDICATION: Peripheral arterial occlusive disease with ulcer at the right first toe. TECHNIQUE: Multiple grayscale and Doppler ultrasound images of the arteries of the right lower limb w ere obtained. COMPARISON: None FINDINGS: There are scattered mild nonhemodynamically significant atherosclerotic plaque throughout the arterie s of the right lower limb. There are brisk systolic upstrokes throughout the arteries of the right lo wer limb with triphasic waveforms at the right external iliac, common femoral, profunda femoral, supe rficial femoral, popliteal, posterior tibial and peroneal arteries and monophasic waveforms in the ri ght anterior tibial and dorsalis pedis arteries. There is proximal to distal gradual decrease in the peak systolic velocities with no regions of abnormal increased velocities to suggest a hemodynamicall y significant stenosis. IMPRESSION: 1. Mild scattered atherosclerotic plaque throughout the arteries of the right lower limb with brisk s ystolic upstrokes throughout and no evident hemodynamically significant stenosis. Reviewed, dictated and finalized at location A. IMPRESSION: 1. Mild scattered atherosclerotic plaque throughout the arteries of the right l ower limb with brisk systolic upstrokes throughout and no evident hemodynamical ly significant stenosis.
--- NOTE | ~2025-01-27 | US_ITS ---
EXAMINATION: US arterial ankle brachial ind DATE: 01/27/2025 18:14 INDICATION: Peripheral arterial occlusive disease with foot ulcer TECHNIQUE: Segmental pressures and plethysmographic and Doppler waveforms of the brachial and lower e xtremity arteries were obtained. COMPARISON: 09/26/2023 FINDINGS: Right and left brachial artery pressures of 135 mm Hg and 132 mm Hg, respectively, are concordant (no rmal difference <= 30 mmHg). The right ankle-brachial index (GUILLERMO) is 1.06 (normal >= 0.9-1.0). The right great toe-brachial index (TBI) is 0.67 (normal >= 0.65). Arterial Doppler waveforms demonstrate brisk systolic upstrokes at vanessa th right posterior tibial and dorsalis pedis arteries. The left GUILLERMO is 0.87. The left TBI is 0.49. Arterial Doppler waveforms demonstrate brisk systolic ups trokes at both left posterior tibial and dorsalis pedis arteries. IMPRESSION: 1. Mild arterial occlusive disease to the left lower limb with mildly decreased left GUILLERMO and TBI. 2. No significant arterial occlusive disease to the right lower limb with normal right GUILLERMO and TBI. Reviewed, dictated and finalized at location A. IMPRESSION: 1. Mild arterial occlusive disease to the left lower limb with mildly decreased left GUILLERMO and TBI. 2. No significant arterial occlusive disease to the right lower limb with ranjana l right GUILLERMO and TBI.
--- NOTE | ~2025-01-27 | MR_ITS ---
EXAMINATION: MR foot RT wo/w con DATE: 01/28/2025 12:23 INDICATION: Foot ulcer. Assess for osteomyelitis. TECHNIQUE: Magnetic resonance imaging (MRI) of the right fore/mid foot was performed without intraven ous contrast. Sequences included axial, sagittal and coronal T1-weighted FSE, axial and coronal T2-we ighted FS FSE, sagittal fluid sensitive FSE STIR, axial T1-weighted FS FSE and post contrast axial, s agittal and coronal T1-weighted FS FSE. COMPARISON: None FINDINGS: Mild hallux valgus with moderate osteoarthritis at the first metatarsophalangeal joint. This includes deep chondral ulceration at the head of the first metatarsal with some underlying irregularity of th e articular cortex and mild subarticular cystlike changes. Mild bunion with mild hypertrophic change and small juxta articular erosion along the lateral articular surface of the head of the first metata rsal. Bone marrow signal is normal throughout with no stress reaction, fracture or pathologic marrow replacing process. Additional mild osteoarthritis related subarticular cystlike change at the middle cuneiform at the junction of its articulation with the medial cuneiform and base of the second metata rsal. Additional minimal to mild polyarticular osteoarthritis at a few of the tarsal metatarsal, meta tarsophalangeal and interphalangeal joints. The Lisfranc ligament complex and the collateral ligament complex at the metatarsophalangeal joints are normal. Visualized portion of the flexor and extensor tendons are normal with no tenosynovitis. No joint effusions, bursitis or other abnormal fluid collec tions. There is however prominent subcutaneous edema over the dorsum of the forefoot as well as diffu se mild edema-like signal change throughout the intrinsic musculature of the forefoot. IMPRESSION: 1. Mild hallux valgus with mild bunion and moderate osteoarthritis at the first metatarsophalangeal j oint. 2. No evident osteolysis or marrow signal changes to suggest osteomyelitis. Reviewed, dictated and finalized at location A. IMPRESSION: 1. Mild hallux valgus with mild bunion and moderate osteoarthritis at the first metatarsophalangeal joint. 2. No evident osteolysis or marrow signal changes to suggest osteomyelitis.
--- OUTSIDE RECORDS SUMMARY | 2025-01-27 11:54 | XMS_ITS | Encounter Summary ---
Author Organization [facility] Address [address] [place] [address] Care Team Providers Care Power Lineman Name Role Phone Melia Ortiz MD Primary Care Provider [phone] Encounter Details Date Type Department Care Team (Late st Contact Info) Description 07/15/2024 Telephone [facility] - Centralized Scheduling [address] [place] [phone] Aime Rene MD [address] [facility] [address] [place] [address] Social History Tobacco Use Types Packs/Day Years Used Date Smoking Tobacco: Never Smokeless Tobacco: Never Alcohol Use Standard Drinks/Week Comments Not Currently 0 (1 standard drink = 0.6 oz pur e alcohol) Sex and Gender Information Value Date Recorded Sex Assigned at Not on file Legal Sex Male 2:24 PM CARBURETOR SPECIALIST Gender Identity Not on file Sexual Orientation Not on file documented as of this encounter Plan of Treatment Not on file documented as of this encounter Visit Diagnoses Not on filedocumented in this encounter Care Teams Power Lineman Relationship Specialty Start Date End Date Melia Ortiz MD [address] [place] [address] PCP - General Family Medicine 03/24/24 documented as of this encounter
--- OUTSIDE RECORDS SUMMARY | 2025-01-27 11:54 | XMS_ITS | Referral Summary ---
Author Organization [address] Address [address] [place] [id number] Care Team Providers Care Foundry Superintendant Name Role Phone Melia Ortiz MD Primary Care Provider [phone] Encounters Date Type Department Care Team Description 11/24/2024 Orders Only [facility] Cardiology [address] [facility] [address] [place] [address] ProviderTal MD 11/24/2024 9:00 AM CDT Office Visit [facility] Cardiology at [address] [place] [address] Meliton Garcia MD Nonobstructive atherosclerosis of coronary artery (Primary Dx); Hypertension associated with diabetes (HCC); Palpitations; Hyperlipidemia associated with type 2 diabetes mellitus (HCC) 11/12/2024 Results Follow-Up [facility] [id number] [place] [address] [address] [address] Melissa Alarcon MD Lipid panel, Comprehensive metabolic panel, Albumin Creatinine Ratio, Urine, eGFR 11/10/2024 11:16 AM CDT - 11/10/2024 11:59 PM CDT Hospital Encounter [address] [address] Type 2 diabetes mellitus with hyperglycemia, with long-term current use of insulin (HCC); Hyperlipidemia associated with type 2 diabetes mellitus (HCC); Hypertension associated with diabetes (HCC) Discharge Disposition: Discharge to home or self care 11/10/2024 11:15 AM CDT Lab [facility] Outpatient Lab at [address] [phone] Hyperlipidemia associated with type 2 diabetes mellitus (HCC) (Primary Dx) 11/08/2024 1:45 PM CDT Office Visit [facility] Diabetes and Endocrinology [address] [place] [phone] Melissa Alarcon MD Type 2 diabetes mellitus with hyperglycemia, with long-term current use of insulin ([facility]) (Primary Dx); Diabetic neuropathy associated with type 2 diabetes mellitus (HCC); Hypertension associated with diabetes ([facility]); Hyperlipidemia associated with type 2 diabetes mellitus (HCC) from Last 3 Months Allergies No known active allergies Medications atorvastatin (LIPITOR) 80 mg tablet Take 1 tablet (80 mg total) by mouth nightly at bedtime. Active OneTouch Verio test strips strip 4 Active dapagliflozin propanediol (FARXIGA) 10 mg tablet Take 1 tablet (10 mg total) by mouth segregator before breakfast Active diltiaZEM CD (CARDIZEM CD) 360 mg 24 hr capsule Take 1 capsule (360 mg total) by mouth daily Active metFORMIN (GLUCOPHAGE) 500 mg tablet Take 1 tablet (500 mg total) by mouth daily 4 Active nitroglycerin (NITROSTAT) 0.[address] 1 tablet (0.4 mg total) under the tongue every 5 (five) minutes as needed 4 Active NovoLOG 100 unit/mL (3 mL) pen for injectionIndicat ions:Type 2 diabetes mellitus with hyperglycemia, with long-term current use of insulin ([facility]) Inject 5-10 Units under the skin 3 (three) times a day with meals 27 mL 3 4 04/26/20 25 Active LANTUS 100 unit/mL (3 mL) pen for injectionIndicat ions:Type 2 diabetes mellitus with hyperglycemia, with long-term current use of insulin ([facility]) Inject 8-10 Units under the skin nightly [...] mg total) by mouth daily 4 Active losartan (COZAAR) 100 mg tablet 4 Active Dexcom G7 Sensor deviceIndication s:Type 2 diabetes mellitus with hyperglycemia, with long-term current use of insulin (HCC) Use one sensor every 10 days 10 each 3 4 Active carvediloL (COREG) 6.25 mg tablet TAKE 1 TABLET BY MOUTH TWICE A DAY WITH MORNING AND EVENING MEAL Active gabapentin (NEURONTIN) 100 mg capsuleIndicatio ns:Diabetic neuropathy associated with type 2 diabetes mellitus (HCC) One tab oral daily with breakfast and lunch and 3 tab at bedtime 450 capsule 3 5 Active pen needle, diabetic (BD Ultra-Fine Keysha Pen Needle) 32 gauge x /32 needleIndication s:Type 2 diabetes mellitus with hyperglycemia, with long-term current use of insulin (HCC) 4x daily for insulin use 400 each 3 5 Active Active Problems Problem Noted Date Diagnosed Date Nonobstructive atherosclerosis of coronary arter y 04/28/2024 Palpitations 04/28/2024 Type 2 diabetes mellitus wit h hyperglycemia, with long-term current use of insulin 04/26/2024 Assessment & Plan (06/22/2024 9:11 AM DIRECTOR OF HOTEL OPERATIONS): Chronic problem. A1c improved from 11.1% 04/26/24 [...] min walking every day Advise to see Director Validation Follow up in 2 months Hypertension associated with diabetes 04/26/2024 Assessment & Plan (06/22/2024 9:13 AM DIRECTOR OF HOTEL OPERATIONS): Chronic problem. Elevated upon arrival. Currently taking diltiazem CD 360mg daily, losartan 100mg daily, spironolactone 25mg daily Assessment & Plan (04/26/2024 11:11 AM CDT): Chronic, uncontrolled On Losartan Advise to work on low salt diet Will reassess in next visit and further adjust Diabetic neuropathy associat ed with type 2 diabetes mellitus 04/26/2024 Assessment & Plan (06/22/2024 9:11 AM DIRECTOR OF HOTEL OPERATIONS): Chronic problem. Currently taking Gabapentin 100mg tid [...] 04/26/2024 Assessment & Plan (06/22/2024 8:47 AM DIRECTOR OF HOTEL OPERATIONS): Chronic problem. Currently taking Atorvastatin 80mg. Last lipid panel: 03/25/24 PII=709, QG=083. Assessment & Plan (04/26/2024 11:09 AM CDT): [...] on file Legal Sex Male 1:04 AM DIRECTOR OF HOTEL OPERATIONS Gender Identity Not on file Sexual Orientation Not on file Last Filed Vital Signs Vital Sign Reading Time Taken Comments Blood Pressure 150/84 11/24/2024 8:50 AM CDT Pulse 78 11/24/2024 8:50 AM CDT Temperature - - Respiratory Rate 16 11/08/2024 1:42 PM CDT Oxygen Saturation 99% 11/24/2024 8:50 AM CDT Inhaled Oxygen Concentration - - Weight 104.8 kg (231 lb) 11/24/2024 8:50 AM CDT Height 182.9 cm (6') 11/24/2024 8:50 AM CDT Body Mass Index 31.33 11/24/2024 8:50 AM CDT Plan of Treatment Not on file Procedures Procedure Name Priority Date/Time Associated Diagnosis Comments ALBUMIN CREATININE RATIO, URINE Routine 11/10/2024 5:35 PM CDT Type 2 diabetes mellitus with hyperglycemia, with long-term current use of insulin (HCC) Hypertension associated with diabetes (HCC) EGFR Routine 11/10/2024 5:33 PM CDT Type 2 diabetes mellitus with hyperglycemia, with long-term current use of insulin (HCC) Hypertension associated with diabetes (HCC) Hyperlipidemia associated with type 2 diabetes mellitus (HCC) COMPREHENSIVE METABOLIC PANEL Routine 11/10/2024 5:33 PM CDT Type 2 diabetes mellitus with hyperglycemia, with long-term current use of insulin (HCC) Hypertension associated with diabetes (HCC) Hyperlipidemia associated with type 2 diabetes mellitus (HCC) LIPID PANEL Routine 11/10/2024 5:33 PM CDT Type 2 diabetes mellitus with hyperglycemia, with long-term current use of insulin (HCC) Hyperlipidemia associated with type 2 diabetes mellitus (HCC) POCT HEMOGLOBIN A1C Routine 11/08/2024 1 :45 PM CDT Type 2 diabetes mellitus with hyperglycemia, with long-term current use of insulin (HCC) POCT GLUCOSE Routine 11/08/2024 1:43 PM CDT Type 2 diabetes mellitus with hyperglycemia, with long-term current use of insulin (HCC) from Last 3 Months Results * Albumin Creatinine Ratio, Urine (11/10/2024 5:35 PM CDT) Pathologist [facility] Albumin Ur <12.0 mg/L Comment: Interpretive Data No reference range established. Current interpretive data was last revised 2018. Creatinine Ur 41.2 mg/dL [facility] Comment: Interpretive Data No reference range established. Current interpretive data was last revised 2018. Albumin Creatinine Ratio, Ur <29 1 - 29 mg/g [facility] Urine 11/10/2024 5:35 PM CDT 11/10/2024 5:35 PM CDT us Melissa Salvador MD LAB URINE ORDERABLE S Final Result [facility] [id number] Department [place] [address] * eGFR (11/10/2024 5:33 PM CDT) eGFR >90 >=60 mL/min/1. 73 m2 Comment: Interpretive Data Reference Interval Normal >/= 90 mL/min/1.73m2 Mildly decreased* 60 - 89 mL/min/1.73m2 Mildly to moderately decreased 45 - 59 mL/min/1.73m2 Moderately to severely decreased 30 - 44 mL/min/1.73m2 Severely decreased 15 - 29 mL/min/1.73m2 Kidney Failure < 15 mL/min/1.73m2 *Relative to young adult level Estimated glomerular filtration rate is determined by the 2020 CKD-EPI equation recommended by the National Kidney Foundation (A Unifying Approach to GFR Estimation: Recommendations of the NKF-ASK Task Force on Reassessing the Inclusion of Race in Diagnosing Kidney Disease, JASN 2020). The CKD-EPI equation should not be used for patients with unstable renal function and has not been validated in children and those over 70. Current interpretive data was last reviewed 2021. Blood 11/10/2024 5:33 PM CDT 11/10/2024 5:33 PM CDT us Deonja Modesto Salvador MD LAB BLOOD ORDERABLE S Final Result [facility] [id number] Department [place] [address] * (ABNORMAL) Lipid panel (11/10/2024 5:33 PM CDT) Cholesterol 97 30 - 199 mg/dL Comment: Interpretive Data Ages < or = 19 years Acceptable: <170 mg/dL Borderline high: 170-199 mg/dL High: >or= 200 mg/dL Ages > or = 20 years Desirable: <200 mg/dL Borderline high: 200-239 mg/dL High: >or= 240 mg/dL Literature References: 1. Expert Panel on Integrated Guidelines for Cardiovascular Health and Risk Reduction in Children and Adolescents. Pediatrics 2011;128:S213 2. NCEP Expert Panel. Circulation 2004;110:227 Current Interpretive Data was last revised on 2018. Triglycerides 81 <=149 mg/dL [facility] Comment: Interpretive Data Ages < or = 9 years Acceptable: <75 mg/dL Borderline high: 75-99 mg/dL High: >or= 100 mg/dL Ages 10 to 20 years Acceptable: <90 mg/dL Borderline high: 90-129 mg/dL High: >or= 130 mg/dL Ages > or = 20 years Desirable: <150 mg/dL Borderline high: 150-199 mg/dL High: 200-499 mg/dL Very high: >or= 499 mg/dL Literature References: 1. Expert Panel on Integrated Guidelines for Cardiovascular Health and Risk Reduction in Children and Adolescents. Pediatrics 2011;128:S213 2. NCEP Expert Panel. Circulation 2004;110:227 Current Interpretive Data was last revised on 2018. HDL 36(L) >=40 mg/dL [facility] Comment: Interpretive Data Ages < or = 19 years Acceptable: >45 mg/dL Borderline low: 40-45 mg/dL Low: <40 mg/dL Ages > or = 20 years Desirable: >or= 60 mg/dL Low: <40 mg/dL Literature References: 1. Expert Panel on Integrated Guidelines for Cardiovascular Health and Risk Reduction in Children and Adolescents. Pediatrics 2011;128:S213 2. NCEP Expert Panel. Circulation 2004;110:227 Current Interpretive Data was last revised on 2018. LDL, calculated 44 <=129 mg/dL [facility] Comment: Interpretive Data Ages < or = 19 years Acceptable: <110 mg/dL Borderline high: 110-129 mg/dL High: >or= 130 mg/dL Ages > or = 20 years Optimal: <100 mg/dL Near optimal: 100-129 mg/dL Borderline high: 130-159 mg/dL High: >160 mg/dL Calculated using the Federico LDL-C estimating equation. This equation was implemented on 2024. Prior to this date LDL-C was estimated using the Friedewald equation. Literature References: 1. Expert Panel on Integrated Guidelines for Cardiovascular Health and Risk Reduction in Children and Adolescents. Pediatrics 2011;128:S213 2. NCEP Expert Panel. Circulation 2004;110:227 3. Federico Abel al. WINSTON Cardiol. 2020 November 04;5(5):540-548. doi: 10.1001/jamacardio.2020.0013 Current Interpretive Data was last revised on 2024. Non-HDL Cholesterol 61 mg/dL [facility] Comment: Interpretive Data Ages < or = 19 years Acceptable: <120 mg/dL Borderline high: 120-144 mg/dL High: >145 mg/dL Ages > or = 20 years When triglycerides are >200 mg/dL, Non-HDL cholesterol is a secondary target of therapy with treatment goals that are 30 mg/dL greater than the LDL cholesterol target. Literature References: 1. Expert Panel on Integrated Guidelines for Cardiovascular Health and Risk Reduction in Children and Adolescents. Pediatrics 2011;128:S213 2. NCEP Expert Panel. Circulation 2004;110:227 Current Interpretive Data was last revised on 2018. Chol/HDL ratio 3 [facility] Blood 11/10/2024 5:33 PM CDT 11/10/2024 5:33 PM CDT us Melissa Salvador MD LAB BLOOD ORDERABLE S Final Result [facility] [id number] Department [place] [address] * (ABNORMAL) Comprehensive metabolic panel (11/10/2024 5:33 PM CDT) Sodium 140 135 - 145 mmol/L Potassium, pl 4.4 3.3 - 4.9 mmol/L [facility] Chloride 107 97 - 110 mmol/L [facility] CO2 22 22 - 32 mmol/L [facility] Anion gap 11 2 - 15 mmol/L [facility] BUN 16 6 - 25 mg/dL [facility] Creatinine 0.84 0.80 - 1.30 mg/dL [facility] Glucose 241(H) 70 - 199 mg/dL [facility] Comment: Interpretive Data Fasting glucose >/= 126 mg/dl is diagnostic for diabetes. Fasting is defined as no caloric intake for at least 8 hours. Fasting glucose between 100 mg/dl to 125 mg/dl is diagnostic of prediabetes. In a patient with classic symptoms of hyperglycemia or hyperglycemic crisis, a random glucose >/= 200 mg/dl is diagnostic for diabetes. In the absence of unequivocal hyperglycemia, results should be confirmed by repeat testing. The classification and Diagnosis of Diabetes Diabetes Care 2022; 46: S19-S40. Current interpretive data was last revised 2022. Calcium 9.3 8.5 - 10.3 mg/dL [facility] Bilirubin, total 0.2 0.1 - 1.2 mg/dL [facility] Protein, pl 7.3 6.5 - 8.5 g/dL [facility] Albumin 4.1 3.5 - 5.0 g/dL [facility] Alk phos 169(H) 40 - 130 Units/L [facility] ALT 20 7 - 55 Units/L [facility] AST 28 10 - 50 Units/L [facility] Blood 11/10/2024 5:33 PM CDT 11/10/2024 5:33 PM CDT Melissa Salvador MD LAB BLOOD ORDERABLE S Final Result [facility] [id number] Department [place] [address] * (ABNORMAL) POCT hemoglobin A1c (11/08/2024 1:45 PM CDT) Hemoglobin A1C, POC 7.1(A) 4.0 - 5.6 % Blood 11/08/2024 1:45 PM CDT Melissa Salvador MD POINT OF CARE TEST ORDERABLES Final Result * POCT glucose (11/08/2024 1:43 PM CDT) Glucose Blood, POC 136 Normal Fasting 70 - 100, Random <200 mg/dL Blood 11/08/2024 1:43 PM CDT Melissa Salvador MD POINT OF CARE TEST ORDERABLES Final Result from Last 3 Months Insurance COUNTS INCLUDE 234 BEDS AT THE [facility] ACCESS Care Teams Foundry Superintendant Relationship Specialty Start Date End Date Melia Ortiz MD PCP - General Family Medicine 11/20/23
--- OUTSIDE RECORDS SUMMARY | 2025-01-27 11:54 | XMS_ITS | Clinical Summary ---
Author Organization [facility] Address [address] [facility] [address] [place] [address] Phone Care Team Providers Care Agriculture Internship Name Role Phone China Alvarenga MD Primary [...] (HCV) Screening 1955 TdaP Immunization 1955 Cologuard 2001 Immunochemical Fecal Occult Blood 2001 Pneumococcal Immunization (5 0+ years) (1 of 1 - PCV) 2006 Zoster Immunization (1 of 2) 2006 Colonoscopy 11/15/2020 05/18/2020 Colorectal Cancer Screening 11/15/2020 SARS-COV-2 Immunization ( - 2023- season) 2024 Influenza Immunization (#1) 2025 Respiratory Syncytial Virus (RSV) Immunization (Adult) (1 - 1-dose 75+ series) 2031 Hepatitis B Immunization Aged Out No longer eligible based on patient's age to complete this topic Human Papillomavirus (HPV) Immunization Aged Out No longer eligible b ased [...] Recently Relevant to Health Maintenance Results * COLONOSCOPY (05/18/2020) Jose Angel Aguilar DO PROCEDURE/MINOR SURGICAL ORDERA BLES Final Result from Last 3 Months or Most Recently Relevant to Health Maintenance Care Teams Agriculture Internship Relationship Specialty Start Date End Date China Alvarenga MD [address] [place] [address] PCP - General Family Medicine 04/13/20
--- OUTSIDE RECORDS SUMMARY | 2025-01-27 11:54 | XMS_ITS | Clinical Summary ---
Author Organization [facility] [employer] Address [address] [place] [address] Care Team Providers Care Putty Maker Name Role Phone Melia Ortiz MD Primary Care Provider [phone] [facility] [employer],non-owned Affiliates and Associated Physician Practices is amultiple site organization consisting of ambulatory clinics and hospital sitesin [place], [place], [place] and [place]. This disclosure is being madepursuant to the Care Everywhere program and may not contain all information available regarding this patient. Last updated 18.[facility] [employer] Allergies No known active allergies Medications * [...] 03/26/20 24 Active Blood Glucose Monitoring Suppl (bigclix.com Verio Flex System) w/Device KITIndications:T ype 2 [...] Active Continuous Glucose Sensor (Dexcom G7 Sensor) [facility] [place] ONE SENSOR EVERY 10 DAYS 05/24/20 [...] on file Legal Sex Male 2:24 PM DEPUTY ADMINISTRATOR Gender Identity Not on file Sexual Orientation Not on file Last Filed Vital Signs Vital Sign Reading Time Taken Comments Blood Pressure 144/82 07/08/2024 9:20 AM DEPUTY ADMINISTRATOR Pulse 74 07/08/2024 9:20 AM DEPUTY ADMINISTRATOR Temperature 36.8 C (98.2 F) 04/01/2024 9:09 AM CDT Respiratory Rate 16 07/08/2024 9:20 AM DEPUTY ADMINISTRATOR Oxygen Saturation 99% 07/08/2024 9:20 AM DEPUTY ADMINISTRATOR Inhaled Oxygen Concentration - - Weight 101.2 kg (223 lb) 07/08/2024 9:20 AM DEPUTY ADMINISTRATOR Height 182.9 cm (6') 07/08/2024 9:20 AM DEPUTY ADMINISTRATOR Body Mass Index 30.24 07/08/2024 9:20 AM DEPUTY ADMINISTRATOR Plan of Treatment Health Maintenance Due Date [...] A1C 09/20/2024 06/22/2024, 04/26/2024, 03/23/2024 INFLUENZA VACCINE (#1) 2025 DIABETES-SERUM CREATININE 03/25/20252023, 03/23/2024 HEPATITIS C [...] - 26 mg/dL 03/25/2024 10:46 AM CDT [facility] Creatinine 0.73 0.71 - 1.16 mg/dL 03/25/2024 10:46 AM CDT [facility] Sodium 140 136 - 145 mmol/L 03/25/2024 10:46 AM [facility] Potassium 3.3(L) 3.5 - 4.5 mmol/L 03/25/2024 10:46 AM [facility] Chloride 107 98 - 107 mmol/L 03/25/2024 10:46 AM [facility] CO2 28 22 - 29 mmol/L 03/25/2024 10:46 AM [facility] Glucose 324(H) 70 - 115 mg/dL 03/25/2024 10:46 AM [facility] Calcium 9.5 8.4 - 10.2 mg/dL 03/25/2024 10:46 AM [facility] Anion Gap 5(L) 6 - 16 03/25/2024 10:46 AM [facility] BUN/Creatinine Ratio 23 7 - 23 03/25/2024 10:46 AM [facility] Osmolality Calculated 304(H) 275 - 295 mOsm/kg 03/25/2024 10:46 AM [facility] eGFR by CKD-EPI >90 >=90 mL/min/1.7 3 m2 03/25/2024 10:46 AM [facility] Blood BLOOD SPECIMEN / Unknown Lab Venipuncture / Unknown 03/25/2024 9:51 AM CDT 03/25/2024 10:15 AM CDT us Quan Barrera HOG CONFINEMENT SYSTEM MANAGER-TRAVEL COUNSELOR LAB - CHEMISTRY ORD ERABLES Final Result [facility] [address] [place] [id number], [facility] [phone] * HEPATITIS C AB SCREEN RFLX NAAT QUANT (03/23/2024 1:15 PM CDT) Hepatitis C Antibody Non-react courtney Non-reac tive 03/23/2024 2:07 PM [facility] Comment:Hepatitis C Antibody screen indicates no [...] ORDERABLES Fi nal Result Performing Organization Address City/[facility]/ZIP Co de Phone Number [facility] [address] [place] [address], [place] [phone] * (ABNORMAL) HEMOGLOBIN A1C (03/23/2024 1:15 PM CDT) Hemoglobin A1c 13.5(H) <=5.6 % 03/23/2024 3:05 PM CDT [facility] Estimated Average Glucose 341 mg/dL 03/23/2024 3:05 PM CDT [facility] Comment: HbA1c Interpretation: Normal : < 5.7% Pre-diabetes: 5.7-6.4% Diabetes: Equal to or greater than 6.5% Test results diagnostic of diabetes should be repeated for confirmation. Treatment target values recommended by ADA and other clinical organizations should be used to evaluate metabolic control in patients. Reference: [place] Diabetes Association, Standards of Care in Diabetes [...] ORDERABLES Fin al Result Performing Organization Address City/[facility]/ZIP Co de Phone Number [facility] [address] [place] [address], [place] [phone] from Last 3 Months or Most Recently Relevant to Health Maintenance Insurance [employer] [facility] * Guarantor: NATAN AUGUSTE Account Type Relation to Patient Date of Phone Billing Address Personal/Family [address] [place] [address] [facility] Advance Directives * Full Code (Latest Code Status on File) Date Activated Date Inactivated Comments 03/24/2024 4:51 PM 03/26/2024 5:28 PM Care Teams Putty Maker Relationship Specialty Start Date End Date Melia Ortiz MD [address] [place] [address] PCP - General Family Medicine 03/24/24
--- OUTSIDE RECORDS SUMMARY | 2025-01-27 11:54 | XMS_ITS | Clinical Summary ---
Author Organization [facility] [address] Address [address] [place] [id number] Care Team Providers Care Vocational Psychologist Name Role Phone Melia Ortiz MD Primary Care Provider [phone] Allergies No known active allergies Medications atorvastatin (LIPITOR) 80 mg tablet Take 1 tablet (80 mg total) by mouth nightly at bedtime. Active OneTouch Verio test strips strip 4 Active dapagliflozin propanediol (FARXIGA) 10 mg tablet Take 1 tablet (10 mg total) by mouth salesperson surgical appliances before breakfast Active diltiaZEM CD (CARDIZEM CD) [...] Ultra-Fine Keysha Pen Needle) 32 gauge x 5/32 needleIndication s:Type 2 diabetes mellitus with hyperglycemia, with long-term current use of insulin (HCC) 4x daily for insulin use 400 each 3 5 Active Active Problems Problem Noted Date Diagnosed Date Nonobstructive atherosclerosis of coronary arter y 04/28/2024 Palpitations 04/28/2024 Type 2 diabetes mellitus wit h hyperglycemia, with long-term current use of insulin 04/26/2024 Assessment & Plan (06/22/2024 9:11 AM PRECISION FARMING COORDINATOR): Chronic problem. A1c improved from 11.1% 04/26/24 [...] min walking every day Advise to see Supply Chain Analyst Follow up in 2 months Hypertension associated with diabetes 04/26/2024 Assessment & Plan (06/22/2024 9:13 AM PRECISION FARMING COORDINATOR): Chronic problem. Elevated upon arrival. Currently taking diltiazem CD 360mg daily, losartan 100mg daily, spironolactone 25mg daily Assessment & Plan (04/26/2024 11:11 AM CDT): Chronic, uncontrolled On Losartan Advise to work on low salt diet Will reassess in next visit and further adjust Diabetic neuropathy associat ed with type 2 diabetes mellitus 04/26/2024 Assessment & Plan (06/22/2024 9:11 AM PRECISION FARMING COORDINATOR): Chronic problem. Currently taking Gabapentin 100mg tid [...] 04/26/2024 Assessment & Plan (06/22/2024 8:47 AM PRECISION FARMING COORDINATOR): Chronic problem. Currently taking Atorvastatin 80mg. Last lipid panel: 03/25/24 SNP=467, MX=673. Assessment & Plan (04/26/2024 11:09 AM CDT): Continue Statin therapy Overweight with body mass in dex (BMI) of 28 to 28.9 in adult 04/26/2024 Assessment & Plan (04/26/2024 11:11 AM CDT): Counseled on diet and exercise and healthy lifestyle habits Encounters Date Type Department Care Team Description 11/24/2024 9:00 AM CDT Office Visit [facility] Cardiology at [address] [place] [phone] Meliton Garcia MD Nonobstructive atherosclerosis of coronary artery (Primary Dx); Hypertension associated with diabetes (HCC); Palpitations; Hyperlipidemia associated with type 2 diabetes mellitus (HCC) 11/24/2024 Orders Only [facility]iology [address] [place] [address] ProviderTal MD 11/12/2024 Results [facility] [address] [place] [address] Melissa Alarcon MD Lipid panel, Comprehensive metabolic panel, Albumin Creatinine Ratio, Urine, eGFR 11/10/2024 11:16 AM CDT - 11/10/2024 11:59 PM CDT Hospital Encounter [facility] [address] [place] [address] Type 2 diabetes mellitus with hyperglycemia, with long-term current use of insulin (HCC); Hyperlipidemia associated with type 2 diabetes mellitus (HCC); Hypertension associated with diabetes (HCC) Discharge Disposition: Discharge to home or self care 11/10/2024 11:15 AM CDT Lab [facility] Medical [facility] Outpatient Lab at [address] [phone] Hyperlipidemia associated with type 2 diabetes mellitus (HCC) (Primary Dx) 11/08/2024 1:45 PM CDT Office Visit [facility] Endocrinology [address] [place] [phone] Melissa Alarcon MD Type 2 diabetes mellitus with hyperglycemia, with long-term current use of insulin (HCC) (Primary Dx); Diabetic neuropathy associated with type 2 diabetes mellitus (HCC); Hypertension associated with diabetes (HCC); Hyperlipidemia associated with type 2 diabetes mellitus (HCC) from Last 3 Months Medical History Medical History Date Comments Diabetes (HCC) Hypertension Family History Medical History Relation Name Comments Diabetes Mother Glaucoma Mother Relation Name Status Comments Mother Social History Tobacco Use Types Packs/Day Years Used Date Smoking Tobacco: Former Cigarettes Smokeless Tobacco: Never Sex and Gender Information Value Date Recorded Sex Assigned at Not on file Legal Sex Male 1:04 AM PRECISION FARMING COORDINATOR Gender Identity Not on file Sexual Orientation [...] 11/24/2024 8:50 AM CDT Plan of Treatment Health Maintenance Due Date Last Done Comments Colon Cancer Screening-Colonoscopy 1956 Depression Screening 1956 Fall Risk Assessment 1956 Hepatitis C Screening 1956 Prostate Cancer Screening-PSA 1956 Dilated Eye Exam 1956 Hepatitis B Screening 1974 Pneumococcal vaccine 65+ (1 of 2 - PCV) 1975 Zoster Vaccine (1 of 2) 2006 DTaP/Tdap/Td Vaccine (2 - Td or Tdap) 07/28/2017 07/28/2007 Abdominal Aortic Aneurysm (A AA) Screen 2021 Well Visit 65+ 2021 Covid-19 Vaccine (4 - 2023-2 5 season) 2024 08/06/2021, 11/06/2020, 10/17/2020 Influenza Vaccine (#1) 2025 Foot Exam 04/26/2025 04/26/2024 Hemoglobin A1C 05/11/2025 11/08/2024, 06/06, 04/26/2024, Additional history exists Albumin Creatinine Ratio, Urine 11/10/2025 , 06/22/2024 Lipid Panel 11/10/2025 11/10/2024, 10/05, 03/25/2024, Additional history exists eGFR 11/10/2025 11/10/2024 Procedures Procedure Name Priority Date/Time Associated Diagnosis [...] Creatinine Ratio, Urine (11/10/2024 5:35 PM CDT) Albumin Ur <12.0 mg/L Comment: Interpretive Data No reference range established. Current interpretive data was last revised 2018. Creatinine Ur 41.2 mg/dL [facility] Comment: Interpretive Data No reference range established. Current interpretive data was last revised 2018. Albumin Creatinine Ratio, Ur <29 1 - 29 mg/g [facility] Urine 11/10/2024 5:35 PM CDT 11/10/2024 5:35 PM CDT us Deonja Modesto Salvador MD LAB URINE ORDERABLE S Final Result [facility] [address] [facility] [place] [address] * eGFR (11/10/2024 5:33 PM CDT) eGFR [...] Inclusion of Race in Diagnosing Kidney Disease, SILVERION 2020). The CKD-EPI equation should not be used for patients with unstable renal function and has not been validated in children and those over 70. Current interpretive data was last reviewed 2021. Blood 11/10/2024 5:33 PM CDT 11/10/2024 5:33 PM CDT Melissa Salvador MD LAB BLOOD ORDERABLE S Final Result [facility] [address] [facility] [place] [address] * (ABNORMAL) Lipid panel (11/10/2024 5:33 PM [...] 2018. LDL, calculated 44 <=129 mg/dL [facility] Comment: Interpretive Data Ages < or = [...] NCEP Expert Panel. Circulation 2004;110:227 3. Federico Delarosa et al. WINSTON Cardiol. 2020 November 04;5(5):540-548. doi: 10.1001/jamacardio.2020.0013 Current Interpretive Data was last revised on 2024. Non-HDL Cholesterol 61 mg/dL [facility] Comment: Interpretive Data Ages < or = [...] last revised on 2018. Chol/HDL ratio 3 [facility] Blood 11/10/2024 5:33 PM CDT 11/10/2024 5:33 PM CDT us Melissa Salvador MD LAB BLOOD ORDERABLE S Final Result [facility] [address] Department [place] [address] * (ABNORMAL) Comprehensive metabolic panel (11/10/2024 5:33 PM CDT) Pathologist [facility] Sodium 140 135 - 145 mmol/L Potassium, pl 4.4 3.3 - 4.9 mmol/L [facility] Chloride 107 97 - 110 mmol/L [facility] CO2 22 22 - 32 mmol/L [facility] Anion gap 11 2 - 15 mmol/L [facility] BUN 16 6 - 25 mg/dL [facility] Creatinine 0.84 0.80 - 1.30 mg/dL [facility] Glucose 241(H) 70 - 199 mg/dL [facility] Comment: Interpretive Data Fasting glucose >/= 126 [...] classification and Diagnosis of Diabetes Diabetes Care 2021; 46: S19-S40. Current interpretive data was last [...] BLOOD ORDERABLE S Final Result [facility] [address] [facility] [place] [address] * (ABNORMAL) POCT hemoglobin A1c (11/08/2024 1:45 PM CDT) Hemoglobin A1C, POC 7.1(A) 4.0 - 5.6 % Blood 11/08/2024 1:45 PM CDT us Melissa Salvador MD POINT OF CARE TEST ORDERABLES Final Result * POCT glucose (11/08/2024 1:43 PM CDT) Glucose Blood, POC 136 Normal Fasting 70 - 100, Random <200 mg/dL Blood 11/08/2024 1:43 PM CDT us Melissa Salvador MD POINT OF CARE TEST ORDERABLES Final Result from Last 3 Months Insurance [facility] ACCESS Member Subscriber Plan / Payer (Ef fective 2022-Present) Name:Natan Auguste Relation to Subscriber:Self Name:Natan Auguste Payer ID:[id number] (NAIC) Type: WILLARD Address: [facility] [id number] [place] [id number] Care Teams Vocational Psychologist Relationship Specialty Start Date End Date Melia Ortiz MD PCP - General Family Medicine 11/20/23
[2025-01-27 12:43] VITALS: BMI 29.2
[2025-01-27 13:58] VITALS: BP 112/47; PULSE 55; RESP 14; TEMP 36.8; O2SAT 98
--- NOTE | 2025-01-27 15:07 | P.HP_ITS ---
H&P: HPI History of Present Illness Date/Time: 01/27/25 15:07 Chief Complaint: right foot ulcer Narrative: 69-year-old male past medical history of type 2 diabetes and hypertension who was referred from the podiatry office on account of right foot ulcer. Patient noted he noticed an ulcer on his right big toe about a week ago, however he noted that the ulcer continue to worsen with foul smell but deneis any fever, vomiting, diarrhea, and dysuria. Also reported bilateral leg swelling of few months and worsening Presented to the podiatry's office from [facility] was admitted directly to the hospital. Review of Systems Review of Systems: All other systems were reviewed and negative except as noted in the HPI above [facility] Past Medical History Medical History Ventral hernia without obstruction or gangrene Umbilical hernia without obstruction and without gangrene Primary osteoarthritis of right knee Primary osteoarthritis of left knee Hyperlipidemia Diastasis recti Benign hypertension History of colon polyps Class 1 obesity with body mass index (BMI) of 32.0 to 32.9 in adult Obesity Hypercholesterolemia Primary hypertension Pyogenic granuloma of tongue Type 2 diabetes mellitus with hyperglycemia Surgical History Surgical History H/O umbilical hernia repair S/P left knee arthroscopy H/O colonoscopy Family History Family History (Updated 01/27/25 @ 13:04 by Yuliya Peters RN) Mother Diabetes mellitus Hypertension Glaucoma Sibling Alzheimer's dementia Father Glaucoma Social History Social History Smoking packs per day: 1.5 Smoking cigarettes per day: 30.0 Years smoked: 20 Smoking pack-years: 30.00 Smoking status: Never smoker Tobacco type: cigarettes Second hand tobacco smoke exposure: No Smoking end date: 07/07/13 Alcohol intake: never Substance use: never Substance use type: does not use Do You Feel Safe in your Home?: Yes Lack of Transportation: No Lack of Food: Never True Current Housing: I Have Housing Concerned About Future Housing: No Difficulty Paying Gas/Electric Bills: No Difficulty Paying for Meds: No Currently Unemployed: No Education: High School Diploma/GED Difficulty w/ Childcare or Family Care: No Living arrangements: with family Occupation/Education: occupation Gender identity (if verbalized by the patient): Male Sexual Orientation (if Verbalized by the Patient): Straight or Heterosexual Spiritual care concerns: No Agree to blood products: Yes Meds Home Medications and Allergies Home Medications ?Medication ?Instructions ?Recorded ?Confirmed ?Type blood-glucose meter (OneTouch #1 ea 11/12/19 01/27/25 Rx Verio Meter) lancets 30 gauge (OneTouch Delica #100 ea 11/12/19 01/27/25 Rx Lancets) blood sugar diagnostic (OneTouch See Rx Instructions .Route 12/03/23 01/27/25 Rx Verio test strips) .COMPLEX #300 strips atorvastatin 80 mg tablet 80 mg PO DAILY #30 tabs 03/27/24 01/27/25 Rx insulin aspart U-100 100 unit/mL 3 unit (0.03 mL) subcut TID #15 mL 04/12/24 0 01/27/25 Rx (3 mL) subcutaneous pen (Novolog FlexPen U-100 Insulin aspart) losartan 50 mg tablet 100 mg PO DAILY 04/14/24 01/27/25 History pen needle, diabetic 29 gauge x #200 ea 04/20/24 01/27/25 Rx 1/2 (BD Ultra-Fine Original Pen Needle) pen needle, diabetic 32 gauge x #200 ea 04/20/24 01/27/25 Rx 5/32 (BD Ultra-Fine Keysha Pen Needle) blood-glucose transmitter (Dexcom #1 ea 05/19/24 01/27/25 Rx G6 Transmitter device) insulin glargine 100 unit/mL (3 8 unit (0.08 mL) subcut QAM #15 mL 05/19/24 01/27/25 Rx mL) subcutaneous pen (Lantus Solostar U-100 Insulin) metformin 500 mg tablet 500 mg PO DAILY #90 tabs 05/21/24 01/27/25 Rx aspirin 81 mg tablet,delayed 81 mg PO DAILY #90 tabs 06/24/24 01/27/25 Rx release (Adult Aspirin Regimen) carvedilol 6.25 mg tablet 6.25 mg PO BID 07/09/24 01/27/25 History trazodone 50 mg tablet 50 mg PO QHS PRN insomnia #30 tabs 09/03/24 01/27/25 Rx spironolactone 25 mg tablet 25 mg PO DAILY #30 tabs 10/10/24 01/27/25 Rx acetaminophen 650 mg 650 mg PO Q12H 10/20/24 01/27/25 History tablet,extended release dapagliflozin propanediol 10 mg 10 mg PO DAILY #90 tabs 11/04/24 01/27/25 Rx tablet (Farxiga) diltiazem HCl 360 mg capsule,24 See Rx Instructions .Route 11/04/24 01/27/25 Rx hr,extended release (Tiadylt ER) .COMPLEX #90 caps gabapentin 100 mg capsule 300 mg PO .COMPLEX 01/24/25 01/27/25 History Allergies Allergy/AdvReac Type Severity Reaction Status Date / Time No Known Allergies Allergy Verified 01/27/25 14:23 Vital Signs Vital Signs - 24 hr 01/27/25 13:58 Temperature 98.2 F Pulse Rate 55 L Respiratory Rate 14 Blood Pressure 112/47 L Pulse Oximetry 98 Exam Narrative: General: alert and comfortable Eyes: EOMI, PERRLA ENNT External ears normal, Neck is supple, no masses, Respiratory systems: Clear to auscultation Cardiovascular S1, S2, normal rhythm, no murmur, rub, or gallop; no thrill or palpable murmurs on palpation. Gastrointestinal: soft, non-tender, and non-distended abdomen with no masses; BS present Skin: right big toe ulcer abotu 1 cm by 1cm, foulsmelling but no drainage Musculoskeletal: no abnormality and no tenderness, normal ROM Neurologic: Alert and oriented x3, non focal Mental Status Exam: normal affect Assessment and Plan Assessment and plan (1) Foot ulcer: Code(s): L97.509 - Non-pressure chronic ulcer of other part of unspecified foot with unspecified severity Status: Acute (2) Leg edema: Code(s): R60.0 - Localized edema Status: Acute Plan Right foot ulcer right big toe ulcer on exam MRI foot w/wo ordered Blood culture pending Continue Cefepime, Flagyl and Vancomycin GUILLERMO and arterial duplex RLE Podiatry consulted Leg edema r/o CHF ECHO ordered Dm2 patient on CGM SSI on accucheks HTN titrate home meds with clinical course DVT prophylaxis on Sq lovenox Full code SDM: daughter Hospitalist MIPS Advance Care Plan I have confirmed that the patient's Advanced Care Plan is present, code status is documented, or surrogate decision maker is listed in patient medical record.: Yes Medication Reconciliation I have utilized all available resources to obtain, update and review the patients current medications (includes all prescriptions, OTC, herbals, cannabis, and nutritional supplements).: Yes
--- OUTSIDE RECORDS SUMMARY | 2025-01-27 15:21 | XMS_ITS | Encounter Summary ---
Author Organization [facility] Address [address] [place] [address] Care Team Providers Care Swinging Cut Off Saw Operator Name Role Phone Melia Ortiz MD Primary Care Provider [phone] Encounter Details Date Type Department Care Team (Late st Contact Info) Description 07/15/2024 Telephone [facility] - Centralized Scheduling [address] [place] [phone] Aime Rene MD [address] [facility] [address] [place] [address] Social History Tobacco Use Types Packs/Day Years Used Date Smoking Tobacco: Never Smokeless Tobacco: Never Alcohol Use Standard Drinks/Week Comments Not Currently 0 (1 standard drink = 0.6 oz pur e alcohol) Sex and Gender Information Value Date Recorded Sex Assigned at Not on file 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
--- OUTSIDE RECORDS SUMMARY | 2025-01-27 15:21 | XMS_ITS | Referral Summary ---
Author Organization [address] Address [address] [place] [phone] Care Team Providers Care Drawer In Jacquard Loom Name Role Phone Melia Ortiz MD Primary Care Provider [phone] Encounters Date Type Department Care Team Description 11/24/2024 Orders Only [facility] Cardiology [address] [facility] [address] [place] [address] ProviderTal MD 11/24/2024 9:00 AM CDT Office Visit [facility] Cardiology at [address] [place] [address] Meliton Garcia MD Nonobstructive atherosclerosis of coronary artery (Primary Dx); Hypertension associated with diabetes (HCC); Palpitations; Hyperlipidemia associated with type 2 diabetes mellitus (HCC) 11/12/2024 Results Follow-Up [facility] [id number] [place] [address] [address], [place] [address] Melissa Alarcon MD Lipid panel, Comprehensive metabolic panel, Albumin Creatinine Ratio, Urine, eGFR 11/10/2024 11:16 AM CDT - 11/10/2024 11:59 PM CDT Hospital Encounter [address] [address] Type 2 diabetes mellitus with hyperglycemia, with long-term current use of insulin (HCC); Hyperlipidemia associated with type 2 diabetes mellitus (HCC); Hypertension associated with diabetes (HCC) Discharge Disposition: Discharge to home or self care 11/10/2024 11:15 AM CDT Lab [facility] Outpatient Lab at [address] [phone] Hyperlipidemia associated with type 2 diabetes mellitus (HCC) (Primary Dx) 11/08/2024 1:45 PM CDT Office Visit [facility] Diabetes and Endocrinology [address] [place] [phone] Melissa Alarcon MD Type 2 diabetes mellitus with hyperglycemia, with long-term current use of insulin ([facility]) (Primary Dx); Diabetic neuropathy associated with type 2 diabetes mellitus (HCC); Hypertension associated with diabetes ([facility]); Hyperlipidemia associated with type 2 diabetes mellitus (HCC) from Last 3 Months Allergies No known active allergies Medications atorvastatin (LIPITOR) 80 mg tablet Take 1 tablet (80 mg total) by mouth nightly at bedtime. Active OneTouch Verio test strips strip 4 Active dapagliflozin propanediol (FARXIGA) 10 mg tablet Take 1 tablet (10 mg total) by mouth wooden frame builder before breakfast Active diltiaZEM CD (CARDIZEM CD) [...] hyperglycemia, with long-term current use of insulin ([facility]) Inject 5-10 Units under the skin 3 (three) times a day with meals 27 mL 3 4 04/26/20 25 Active LANTUS 100 unit/mL (3 mL) pen for injectionIndicat ions:Type 2 diabetes mellitus with hyperglycemia, with long-term current use of insulin ([facility]) Inject 8-10 Units under the [...] 04/26/2024 Assessment & Plan (06/22/2024 9:11 AM VP TRAINING): Chronic problem. A1c improved from 11.1% 04/26/24 [...] min walking every day Advise to see Forward Air Controller/Air Officer Follow up in 2 months Hypertension associated with diabetes 04/26/2024 Assessment & Plan (06/22/2024 9:13 AM VP TRAINING): Chronic problem. Elevated upon arrival. Currently taking diltiazem CD 360mg daily, losartan 100mg daily, spironolactone 25mg daily Assessment & Plan (04/26/2024 11:11 AM CDT): Chronic, uncontrolled On Losartan Advise to work on low salt diet Will reassess in next visit and further adjust Diabetic neuropathy associat ed with type 2 diabetes mellitus 04/26/2024 Assessment & Plan (06/22/2024 9:11 AM VP TRAINING): Chronic problem. Currently taking Gabapentin 100mg tid [...] 04/26/2024 Assessment & Plan (06/22/2024 8:47 AM VP TRAINING): Chronic problem. Currently taking Atorvastatin 80mg. Last lipid panel: 03/25/24 JEI=691, LS=181. Assessment & Plan (04/26/2024 11:09 AM CDT): [...] on file Legal Sex Male 1:04 AM VP TRAINING Gender Identity Not on file Sexual Orientation [...] Ratio, Urine (11/10/2024 5:35 PM CDT) Pathologist [facility] Albumin Ur <12.0 mg/L Comment: Interpretive Data [...] LAB URINE ORDERABLE S Final Result [facility] [address] [address] Department [place] [address] * eGFR (11/10/2024 5:33 PM CDT) eGFR [...] BLOOD ORDERABLE S Final Result [facility] [address] [address] [place] [address] * (ABNORMAL) Lipid panel (11/10/2024 [...] revised on 2024. Non-HDL Cholesterol 61 mg/dL [facility] Comment: Interpretive Data Ages < or = [...] last revised on 2018. Chol/HDL ratio 3 [facility] Blood 11/10/2024 5:33 PM CDT 11/10/2024 5:33 PM CDT us Melissa Salvador MD LAB BLOOD ORDERABLE S Final Result [facility] [address] [address] [place] [address] * (ABNORMAL) Comprehensive metabolic panel (11/10/2024 5:33 PM CDT) Sodium 140 135 - 145 mmol/L Potassium, pl 4.4 3.3 - 4.9 mmol/L [facility] Chloride 107 97 - 110 mmol/L [facility] CO2 22 22 - 32 mmol/L [facility] Anion gap 11 2 - 15 mmol/L [facility] BUN 16 6 - 25 mg/dL [facility] Creatinine 0.84 0.80 - 1.30 mg/dL [facility] Glucose 241(H) 70 - 199 mg/dL [facility] Comment: Interpretive Data Fasting glucose >/= 126 [...] LAB BLOOD ORDERABLE S Final Result [facility] [address] [address] [place] [address] * (ABNORMAL) POCT hemoglobin A1c (11/08/2024 1:45 [...] Final Result from Last 3 Months Insurance [facility] ACCESS Care Teams Drawer In Jacquard Loom Relationship Specialty Start Date End Date Melia Ortiz MD PCP - General Family Medicine 11/20/23
--- OUTSIDE RECORDS SUMMARY | 2025-01-27 15:21 | XMS_ITS | Clinical Summary ---
Author Organization [facility] Address [address] [place] [address] Care Team Providers Care Chemical Equipment Controller Name Role Phone Melia Ortiz MD Primary Care Provider [phone] Source Comments [facility],non-owned Affiliates and Associated Physician Practices is amultiple site organization consisting of ambulatory clinics and hospital sitesin [place], [place], [place] and [place]. This disclosure is being madepursuant to the Care Everywhere program and may not contain all information available regarding this patient. Last updated 18.[facility] Allergies No known active allergies Medications * [...] 03/26/20 24 Active Blood Glucose Monitoring Suppl (Lenddo Verio Flex System) w/Device KITIndications:T ype 2 [...] Active Continuous Glucose Sensor (Dexcom G7 Sensor) [facility] USE ONE SENSOR EVERY 10 DAYS 05/24/20 [...] on file Legal Sex Male 2:24 PM BOTTOM SANDER Gender Identity Not on file Sexual Orientation Not on file Last Filed Vital Signs Vital Sign Reading Time Taken Comments Blood Pressure 144/82 07/08/2024 9:20 AM BOTTOM SANDER Pulse 74 07/08/2024 9:20 AM BOTTOM SANDER Temperature 36.8 C (98.2 F) 04/01/2024 9:09 AM CDT Respiratory Rate 16 07/08/2024 9:20 AM BOTTOM SANDER Oxygen Saturation 99% 07/08/2024 9:20 AM BOTTOM SANDER Inhaled Oxygen Concentration - - Weight 101.2 kg (223 lb) 07/08/2024 9:20 AM BOTTOM SANDER Height 182.9 cm (6') 07/08/2024 9:20 AM BOTTOM SANDER Body Mass Index 30.24 07/08/2024 9:20 AM BOTTOM SANDER Plan of Treatment Health Maintenance Due Date [...] - 26 mg/dL 03/25/2024 10:46 AM CDT [facility] Creatinine 0.73 0.71 - 1.16 mg/dL 03/25/2024 10:46 AM CDT [facility] Sodium 140 136 - 145 mmol/L 03/25/2024 10:46 AM [facility] Potassium 3.3(L) 3.5 - 4.5 mmol/L 03/25/2024 10:46 AM [facility] Chloride 107 98 - 107 mmol/L 03/25/2024 10:46 AM [facility] CO2 28 22 - 29 mmol/L 03/25/2024 10:46 AM [facility] Glucose 324(H) 70 - 115 mg/dL 03/25/2024 10:46 AM [facility] Calcium 9.5 8.4 - 10.2 mg/dL 03/25/2024 10:46 AM [facility] Anion Gap 5(L) 6 - 16 03/25/2024 10:46 AM [facility] BUN/Creatinine Ratio 23 7 - 23 03/25/2024 10:46 AM [facility] Osmolality Calculated 304(H) 275 - 295 mOsm/kg 03/25/2024 10:46 AM [facility] eGFR by CKD-EPI >90 >=90 mL/min/1.7 3 m2 03/25/2024 10:46 AM [facility] Blood BLOOD SPECIMEN / Unknown Lab Venipuncture / Unknown 03/25/2024 9:51 AM CDT 03/25/2024 10:15 AM CDT us Quan Barrera MULTIMEDIA TECHNICIAN-BIOFUELS PLANT OPERATIONS ENGINEER LAB - CHEMISTRY ORD ERABLES Final Result [facility] [address] [place] [phone], [facility] [phone] * HEPATITIS C AB SCREEN RFLX NAAT QUANT (03/23/2024 1:15 PM CDT) Hepatitis C Antibody Non-react courtney Non-reac tive 03/23/2024 2:07 PM [facility] Comment:Hepatitis C Antibody screen indicates no [...] ORDERABLES Fi nal Result Performing Organization Address City/[facility]/ZIP Co de Phone Number [facility] [address] [place] [address], [place] [phone] * (ABNORMAL) HEMOGLOBIN A1C (03/23/2024 1:15 PM CDT) Hemoglobin A1c 13.5(H) <=5.6 % 03/23/2024 3:05 PM CDT [facility] Estimated Average Glucose 341 mg/dL 03/23/2024 3:05 PM CDT [facility] Comment: HbA1c Interpretation: Normal : < 5.7% Pre-diabetes: 5.7-6.4% Diabetes: Equal to or greater than 6.5% Test results diagnostic of diabetes should be repeated for confirmation. Treatment target values recommended by ADA and other clinical organizations should be used to evaluate metabolic control in patients. Reference: [place] Diabetes Association, Standards of Care in Diabetes [...] ORDERABLES Fin al Result Performing Organization Address City/[facility]/ZIP Co de Phone Number [facility] [address] [place] [address], [place] [phone] from Last 3 Months or Most Recently Relevant to Health Maintenance Insurance [employer] [facility] * Guarantor: NATAN AUGUSTE Account Type Relation to Patient Date of Phone Billing Address Personal/Family [address] [place] [address] [facility] Advance Directives * Full Code (Latest Code Status on File) Date Activated Date Inactivated Comments 03/24/2024 4:51 PM 03/26/2024 5:28 PM Care Teams Chemical Equipment Controller Relationship Specialty Start Date End Date Melia Ortiz MD [address] [place] [address] PCP - General Family Medicine 03/24/24
--- OUTSIDE RECORDS SUMMARY | 2025-01-27 15:21 | XMS_ITS | Clinical Summary ---
Author Organization [facility] Address [address], [facility] [address] [place] [address] Phone Care Team Providers Care Skills Instructor Name Role Phone China Alvarenga MD Primary [...] Recently Relevant to Health Maintenance Care Teams Skills Instructor Relationship Specialty Start Date End Date China Alvarenga MD [address] [place] [address] PCP - General Family Medicine 04/13/20
--- OUTSIDE RECORDS SUMMARY | 2025-01-27 15:21 | XMS_ITS | Clinical Summary ---
Author Organization [facility] [address] Address [address] [place] [phone] Care Team Providers Care Dorr Operator Name Role Phone Melia Ortiz MD Primary Care Provider [phone] Allergies No known active allergies Medications atorvastatin (LIPITOR) 80 mg tablet Take 1 tablet (80 mg total) by mouth nightly at bedtime. Active OneTouch Verio test strips strip 4 Active dapagliflozin propanediol (FARXIGA) 10 mg tablet Take 1 tablet (10 mg total) by mouth airport manager before breakfast Active diltiaZEM CD (CARDIZEM CD) [...] 04/26/2024 Assessment & Plan (06/22/2024 9:11 AM TYPE CASTER): Chronic problem. A1c improved from 11.1% 04/26/24 [...] min walking every day Advise to see Blue Split Trimmer Follow up in 2 months Hypertension associated with diabetes 04/26/2024 Assessment & Plan (06/22/2024 9:13 AM TYPE CASTER): Chronic problem. Elevated upon arrival. Currently taking diltiazem CD 360mg daily, losartan 100mg daily, spironolactone 25mg daily Assessment & Plan (04/26/2024 11:11 AM CDT): Chronic, uncontrolled On Losartan Advise to work on low salt diet Will reassess in next visit and further adjust Diabetic neuropathy associat ed with type 2 diabetes mellitus 04/26/2024 Assessment & Plan (06/22/2024 9:11 AM TYPE CASTER): Chronic problem. Currently taking Gabapentin 100mg tid [...] 04/26/2024 Assessment & Plan (06/22/2024 8:47 AM TYPE CASTER): Chronic problem. Currently taking Atorvastatin 80mg. Last lipid panel: 03/25/24 DXV=233, EP=403. Assessment & Plan (04/26/2024 11:09 AM CDT): Continue Statin therapy Overweight with body mass in dex (BMI) of 28 to 28.9 in adult 04/26/2024 Assessment & Plan (04/26/2024 11:11 AM CDT): Counseled on diet and exercise and healthy lifestyle habits Encounters Date Type Department Care Team Description 11/24/2024 9:00 AM CDT Office Visit [facility] Cardiology at [address] [place] [phone] Meliton Garcia MD Nonobstructive atherosclerosis of coronary artery (Primary Dx); Hypertension associated with diabetes (HCC); Palpitations; Hyperlipidemia associated with type 2 diabetes mellitus (HCC) 11/24/2024 Orders Only [facility] Cardiology [address] [facility] [address] [place] [address] ProviderTal MD 11/12/2024 Results [facility] [address] [facility] [address] [place] [address] Melissa Alarcon MD Lipid panel, Comprehensive metabolic panel, Albumin Creatinine Ratio, Urine, eGFR 11/10/2024 11:16 AM CDT - 11/10/2024 11:59 PM CDT Hospital Encounter [facility] [address] [place] [address] Type 2 diabetes mellitus with hyperglycemia, with long-term current use of insulin (HCC); Hyperlipidemia associated with type 2 diabetes mellitus (HCC); Hypertension associated with diabetes (HCC) Discharge Disposition: Discharge to home or self care 11/10/2024 11:15 AM CDT Lab [facility] Medical [facility] Outpatient Lab at [address] [address] Hyperlipidemia associated with type 2 diabetes mellitus (HCC) (Primary Dx) 11/08/2024 1:45 PM CDT Office Visit [facility] Diabetes and Endocrinology [address] [place] [phone] Melissa Alarcon MD Type 2 diabetes [...] on file Legal Sex Male 1:04 AM TYPE CASTER Gender Identity Not on file Sexual Orientation [...] LAB URINE ORDERABLE S Final Result [facility] [address] [address] [place] [address] * eGFR (11/10/2024 5:33 PM [...] BLOOD ORDERABLE S Final Result [facility] [address] [address] [place] [address] * (ABNORMAL) Lipid panel (11/10/2024 5:33 PM [...] LAB BLOOD ORDERABLE S Final Result [facility] [address] [address] Department [place] [address] * (ABNORMAL) Comprehensive metabolic panel (11/10/2024 5:33 PM CDT) Pathologist [facility] Sodium 140 135 - 145 mmol/L Potassium, [...] BLOOD ORDERABLE S Final Result [facility] [address] [address] [place] [address] * (ABNORMAL) POCT hemoglobin A1c (11/08/2024 1:45 [...] Final Result from Last 3 Months Insurance [facility] ACCESS Member Subscriber Plan / Payer (Ef fective 2022-Present) Name:Natan Auguste Relation to Subscriber:Self Name:Natan Auguste Payer ID:[id number] (NAIC) Type: WILLARD Address: [facility] [id number] [place] [id number] Care Teams Dorr Operator Relationship Specialty Start Date End Date Melia Ortiz MD PCP - General Family Medicine 11/20/23
[2025-01-27 15:44] LABS: Hematocrit 37.5 % (42.0-52.0); Hemoglobin 12.5 g/dL (14.0-18.0); Immature Granulocyte Percent A 0.2 % (0-0.5); Lymphocytes Absolute Auto 2.19 K/mm3 (0.9-3.2); Mean Corpuscular HGB Conc 33.3 g/dl (32-36); Mean Corpuscular Hemoglobin 28.2 pg (26-34); Mean Corpuscular Volume 84.5 fl (80-100); Nucleated Red Blood Cells Absolute Auto 0.000 K/mm3 (0.0-0.012); Nucleated Red Blood Cells Perc 0.0 % (0.0-0.2); Platelet Count Result 326 k/mm3 (150-375); Red Blood Count 4.44 M/mm3 (4.6-6.20); White Blood Count 8.7 K/mm3 (4.5-10.0)
[2025-01-27 16:00] LABS: Alanine Aminotransferase 23 U/L (6-50); Albumin Level 4.2 g/dL (3.5-5.1); Alkaline Phosphatase 162 U/L (38-126); Anion Gap 10 mmol/L (4-12); Aspartate Amino Transferase 29 U/L (17-59); Bilirubin,Total 0.3 mg/dL (0.2-1.3); Blood Urea Nitrogen 19 mg/dL (9-20); Calcium 9.5 mg/dL (8.4-10.2); Carbon Dioxide 25 mmol/L (22-30); Chloride 110 mmol/L (98-107); Estimated CRCL calculation 71 ml/min; Estimated Glomerular Filt Rate > 60; Glucose 107 mg/dL (65-110); Potassium 3.9 mmol/L (3.4-5.0); Sodium 145 mmol/L (137-145); Total Protein 7.8 g/dL (6.3-8.2)
[2025-01-27 17:22] LABS: CRP < 0.5 mg/dL (<1.0)
[2025-01-27] MEDS: VANCOMYCIN 1,250 MG/NS 250 ML 1,250 MG/250 ML BAG 166.67 MG IVPB ×2 (20:14→21:38)
[2025-01-27 20:15] VITALS: PULSE 87
[2025-01-27 20:36] VITALS: BP 137/70; PULSE 50; RESP 18; TEMP 36.6; O2SAT 100
[2025-01-27] MEDS: metroNIDAZOLE 500 MG/ISO 100ML 500 MG/100 ML BAG 100 MG IVPB (23:12)
[2025-01-28] VITALS (7 sets, daily range): BP systolic 138–149; BP diastolic 65–79; PULSE 62–72; RESP 18; TEMP 36.1–36.6; O2SAT 100
--- NOTE | 2025-01-28 | ECHO_ITS ---
Patient Info Name: Natan Auguste Age: 69 years : 1955 Gender: Male Ht: 72 in Wt: 216 lbs BSA: 2.25 m2 HR: 66 bpm BP: 138 / 65 mmHg Technical Quality: Good Exam Date: 01/28/2025 10:21 AM Patient Status: I Admit Date: 01/27/2025 Exam Type: CA echo doppler color flow Complete two-dimensional, color flow and Doppler transthoracic echocardiogram is performed. Staff Referring Physician: Castillo Mock Spring Tier: Gwendolyn Gooden Attending Provider: Castillo Mock Summary 1. Complete two-dimensional, color flow and Doppler transthoracic echocardiogram is performed. 2. Left ventricular chamber dimension is normal. 3. Left ventricular systolic function is normal, estimated at 55-60. 4. The left ventricular diastolic function is grade I diastolic dysfunction. 5. E/e' 10 is mildly elevated. 6. Left atrial chamber dimension is mildly enlarged. 7. There is mild mitral valve regurgitation. Left Ventricle E/e' 10 is mildly elevated. Left ventricular chamber dimension is normal. Left ventricular systolic function is normal, estimated at 55-60. The left ventricular diastolic function is grade I diastolic dysfunction. Right Ventricle Right ventricular chamber dimension is normal. Right ventricular systolic function is normal and with normal TAPSE 2.6 cm. Left Atria Left atrial chamber dimension is mildly enlarged. Right Atria Right atrial chamber dimension is normal. Aortic Valve The aortic valve is trileaflet. There is no aortic valve stenosis. There is no aortic valve regurgitation. Pulmonic Valve There is no pulmonic regurgitation. Mitral Valve There is no mitral valve stenosis. There is mild mitral valve regurgitation. Tricuspid Valve There is no tricuspid valve regurgitation. Pericardium/Pleural There is no pericardial effusion. Inferior Vena Cava Normal inferior vena cava with >50% collapse upon inspiration consistent with normal right atrial pressure, 5 mmHg. Aorta The aortic root size at the sinus of Valsalva is normal. Left Ventricular Outflow Tract Name Value Normal LVOT 2D LVOT Diameter 2.0 cm LVOT Doppler LVOT Peak Velocity 111 cm/s LVOT Peak Gradient 5 mmHg LVOT Mean Gradient 3 mmHg LVOT VTI 30 cm LVOT Stroke Volume 96 ml LVOT CO 6.4 l/min LVOT CI 2.8 l/min/m2 Mitral Valve Name Value Normal MV Diastolic Function MV E Peak Velocity 50 cm/s MV A Peak Velocity 86 cm/s MV E/A 0.6 MV Decel Time (PW) 212 ms MV Annular TDI MV E/e' (Septal) 9.7 MV E/e' (Lateral) 11.3 MV E/e' (Average) 10.5 Tricuspid Valve Name Value Normal Estimated PAP/RSVP RA Pressure 5 mmHg <=5 Aortic Valve Name Value Normal AV Doppler AV Peak Velocity 158 cm/s AV Peak Gradient 10 mmHg AV Area (Cont Eq Willy) 2.3 cm2 AV DI (Willy) 0.70 AV Regurgitation 2D LVOT Area 3.2 cm2 Ventricles Name Value Normal LV Dimensions 2D/MM IVS Diastolic Thickness (2D) 0.9 cm 0.6-1.0 LVID Diastole (2D) 5.7 cm 4.2-5.8 LVIW Diastolic Thickness (2D) 1.2 cm 0.6-1.0 LVID Systole (2D) 3.5 cm 2.5-4.0 LVOT Diameter 2.0 cm LV Mass (2D Cubed) 238.82 g 88.00-224.00 LV Mass Index (2D Cubed) 106 g/m2 49-115 Relative Wall Thickness (2D) 0.41 <=0.42 LV Fractional Shortening/Ejection Fraction 2D/MM LV Fractional Shortening (2D) 39 % 25-43 LV EF (2D Teichholz) 69 % LV Diastolic Volume (4C MOD) 129 ml LV EF (4C MOD) 56 % LV Diastolic Volume (2C MOD) 142 ml LV EF (2C MOD) 54 % LV Diastolic Volume (BP MOD) 138 ml 62-150 LV Diastolic Volume Index (BP MOD) 61 ml/m2 34-74 LV Systolic Volume (BP MOD) 61 ml 21-61 LV Systolic Volume Index (BP MOD) 27 ml/m2 11-31 LV EF (BP MOD) 56 % 52-72 LV Diastolic Length (4C) 8.5 cm LV Systolic Length (4C) 7.4 cm LV Stroke Volume (4C MOD) 72 ml Atria Name Value Normal LA Dimensions LA Volume (4C A-L) 38 ml LA Volume (BP A-L) 64 ml RA Dimensions RA Systolic Major [place] Length (4C) 5.9 cm 2.1-2.7 RA Area (4C) 16.9 cm2 <=18.0 Report Signatures
[2025-01-28] MEDS: CEFEPIME 2 GM in SODIUM CHLORIDE 0.9% IV 50 ML 100 ML IVPB ×4 (00:16→23:54)
[2025-01-28 05:30] LABS: Hematocrit 38.2 % (42.0-52.0); Hemoglobin 12.3 g/dL (14.0-18.0); Immature Granulocyte Percent A 0.4 % (0-0.5); Lymphocytes Absolute Auto 2.25 K/mm3 (0.9-3.2); Mean Corpuscular HGB Conc 32.2 g/dl (32-36); Mean Corpuscular Hemoglobin 28.0 pg (26-34); Mean Corpuscular Volume 86.8 fl (80-100); Nucleated Red Blood Cells Absolute Auto 0.000 K/mm3 (0.0-0.012); Nucleated Red Blood Cells Perc 0.0 % (0.0-0.2); Platelet Count Result 305 k/mm3 (150-375); Red Blood Count 4.40 M/mm3 (4.6-6.20); White Blood Count 9.4 K/mm3 (4.5-10.0)
[2025-01-28 05:48] LABS: Alanine Aminotransferase 19 U/L (6-50); Albumin Level 3.9 g/dL (3.5-5.1); Alkaline Phosphatase 151 U/L (38-126); Anion Gap 9 mmol/L (4-12); Aspartate Amino Transferase 24 U/L (17-59); Bilirubin,Total 0.3 mg/dL (0.2-1.3); Blood Urea Nitrogen 17 mg/dL (9-20); Calcium 9.2 mg/dL (8.4-10.2); Carbon Dioxide 18 mmol/L (22-30); Chloride 115 mmol/L (98-107); Estimated CRCL calculation 77 ml/min; Estimated Glomerular Filt Rate > 60; Glucose 112 mg/dL (65-110); Magnesium 2.4 mg/dL (1.6-2.3); Potassium 4.0 mmol/L (3.4-5.0); Sodium 142 mmol/L (137-145); Total Protein 7.1 g/dL (6.3-8.2)
[2025-01-28] MEDS: metroNIDAZOLE 500 MG/ISO 100ML 500 MG/100 ML BAG 100 MG IVPB ×3 (09:03→20:42)
[2025-01-28] MEDS: ENOXAPARIN 40 MG/0.4 ML SYRINGE SUB-Q (09:10)
[2025-01-28] MEDS: ATORVASTATIN 40 MG TABLET 80 MG PO (09:10)
[2025-01-28] MEDS: EMPAGLIFLOZIN 25 MG TABLET PO (09:12)
[2025-01-28] MEDS: ASPIRIN 81 MG ENTERIC TABLET PO (09:12)
[2025-01-28] MEDS: INSULIN GLARGINE (*BKC) 100 UNITS/ML 8 UNITS SUB-Q (09:22)
--- NOTE | 2025-01-28 09:31 | PM.IMHP ---
H&P: HPI History of Present Illness Date/Time: 01/28/25 09:31 Chief Complaint: Sore present to the right great toe with swelling malodor and drainage noted to the wound. Narrative: The patient presented to my office December 28, 2024 with referred by his PCP due to an ulcer to the right great toe with rednesss swelling and pain present to the right leg. No FCNV. The patient is diabetic with HbA1c greater than 7%. He states he noticed the wound more than a week ago. No local wound care, no antibiotics had been prescribed. No prior history of non healing sores to his feet. No calf pain with walking. He was admitted for IV antibiotic management yesterday. The patient denies any intolerance to the antibiotics. Relates that his leg and foot feel less swollen and the pain to the leg improving. Review of Systems Review of Systems: All systems reviewed & are unremarkable except as noted in HPI and below (history of present illness.) FOR[facility]LY [facility] Past Medical History Medical History Ventral hernia without obstruction or gangrene Umbilical hernia without obstruction and without gangrene Primary osteoarthritis of right knee Primary osteoarthritis of left knee Hyperlipidemia Diastasis recti Benign hypertension History of colon polyps Class 1 obesity with body mass index (BMI) of 32.0 to 32.9 in adult Obesity Hypercholesterolemia Primary hypertension Pyogenic granuloma of tongue Type 2 diabetes mellitus with hyperglycemia Surgical History Surgical History H/O umbilical hernia repair S/P left knee arthroscopy H/O colonoscopy Family History Family History (Updated 01/27/25 @ 13:04 by Yuliya Peters RN) Mother Diabetes mellitus Hypertension Glaucoma Sibling Alzheimer's dementia Father Glaucoma Social History Social History Smoking packs per day: 1.5 Smoking cigarettes per day: 30.0 Years smoked: 20 Smoking pack-years: 30.00 Smoking status: Never smoker Tobacco type: cigarettes Second hand tobacco smoke exposure: No Smoking end date: 07/07/13 Alcohol intake: never Substance use: never Substance use type: does not use Do You Feel Safe in your Home?: Yes Lack of Transportation: No Lack of Food: Never True Current Housing: I Have Housing Concerned About Future Housing: No Difficulty Paying Gas/Electric Bills: No Difficulty Paying for Meds: No Currently Unemployed: No Education: High School Diploma/GED Difficulty w/ Childcare or Family Care: No Living arrangements: with family Occupation/Education: occupation Gender identity (if verbalized by the patient): Male Sexual Orientation (if Verbalized by the Patient): Straight or Heterosexual Spiritual care concerns: No Agree to blood products: Yes Meds Home Medications and Allergies Home Medications ?Medication ?Instructions ?Recorded ?Confirmed ?Type blood-glucose meter (OneTouch #1 ea 11/12/19 01/27/25 Rx Verio Meter) lancets 30 gauge (OneTouch Delica #100 ea 11/12/19 01/27/25 Rx Lancets) blood sugar diagnostic (OneTouch See Rx Instructions .Route 12/03/23 01/27/25 Rx Verio test strips) .COMPLEX #300 strips atorvastatin 80 mg tablet 80 mg PO DAILY #30 tabs 03/27/24 01/27/25 Rx insulin aspart U-100 100 unit/mL 3 unit (0.03 mL) subcut TID #15 mL 04/12/24 01/27/25 Rx (3 mL) subcutaneous pen (Novolog FlexPen U-100 Insulin aspart) losartan 50 mg tablet 100 mg PO DAILY 04/14/24 01/27/25 History pen needle, diabetic 29 gauge x #200 ea 04/20/24 01/27/25 Rx 1/2 (BD Ultra-Fine Original Pen Needle) pen needle, diabetic 32 gauge x #200 ea 04/20/24 01/27/25 Rx 5/32 (BD Ultra-Fine Keysha Pen Needle) blood-glucose transmitter (Dexcom #1 ea 05/19/24 01/27/25 Rx G6 Transmitter device) insulin glargine 100 unit/mL (3 8 unit (0.08 mL) subcut QAM #15 mL 05/19/24 01/27/25 Rx mL) subcutaneous pen (Lantus Solostar U-100 Insulin) metformin 500 mg tablet 500 mg PO DAILY #90 tabs 05/21/24 01/27/25 Rx aspirin 81 mg tablet,delayed 81 mg PO DAILY #90 tabs 06/24/24 01/27/25 Rx release (Adult Aspirin Regimen) carvedilol 6.25 mg tablet 6.25 mg PO BID 07/09/24 01/27/25 History trazodone 50 mg tablet 50 mg PO QHS PRN insomnia #30 tabs 09/03/24 01/27/25 Rx spironolactone 25 mg tablet 25 mg PO DAILY #30 tabs 10/10/24 01/27/25 Rx acetaminophen 650 mg 650 mg PO Q12H 10/20/24 01/27/25 History tablet,extended release dapagliflozin propanediol 10 mg 10 mg PO DAILY #90 tabs 11/04/24 01/27/25 Rx tablet (Farxiga) diltiazem HCl 360 mg capsule,24 See Rx Instructions .Route 11/04/24 01/27/25 Rx hr,extended release (Tiadylt ER) .COMPLEX #90 caps gabapentin 100 mg capsule 300 mg PO .COMPLEX 01/24/25 01/27/25 History Allergies Allergy/AdvReac Type Severity Reaction Status Date / Time No Known Allergies Allergy Verified 01/27/25 14:23 Vital Signs Vital Signs - 24 hr 01/27/25 13:58 01/27/25 19:27 01/27/25 20:10 Temperature 36.8 C Pulse Rate 55 L Respiratory Rate 14 Blood Pressure 112/47 L Pulse Oximetry 98 Oxygen Delivery Room Air Room Air 01/27/25 20:15 01/27/25 20:36 01/28/25 04:43 Temperature 36.6 C 36.4 C Pulse Rate 87 50 L 62 Respiratory Rate 18 18 Blood Pressure 137/70 138/65 Pulse Oximetry 100 100 Oxygen Delivery 01/28/25 09:11 Temperature Pulse Rate 65 Respiratory Rate Blood Pressure Pulse Oximetry Oxygen Delivery Exam Skin: Wounds: wounds noted Other: Full thickness ulceration to the plantar right hallux, extending to the distal phalanx of the hallux. There is edema noted, slightly improved however, skin lines are now visible to the hallux, taut brawny skin improving to leg as well. No fluctuance noted. Malodorous drainage noted. No purulence expressed. No calor present. H&P: Results Labs Labs: Short CBC 01/27/25 01/28/25 Range/Units 15:26 04:50 WBC 8.7 9.4 (4.5-10.0) K/mm3 Hgb 12.5 L 12.3 L (14.0-18.0) g/dL Hct 37.5 L 38.2 L (42.0-52.0) % Plt Count 326 305 (150-375) k/mm3 BMP 01/27/25 01/28/25 15:26 04:50 Sodium 145 142 Potassium 3.9 4.0 Chloride 110 H 115 H Carbon Dioxide 25 18 L BUN 19 17 Creatinine 0.97 0.88 Glucose 107 112 H Calcium 9.5 9.2 Liver Function 01/27/25 01/28/25 Range/Units 15:26 04:50 Total Bilirubin 0.3 0.3 (0.2-1.3) mg/dL AST 29 24 (17-59) U/L ALT 23 19 (6-50) U/L Alkaline Phosphatase 162 H 151 H (38-126) U/L Albumin 4.2 3.9 (3.5-5.1) g/dL Assessment and Plan Assessment and plan (1) Diabetic ulcer of right foot associated with diabetes mellitus due to underlying condition, with fat layer exposed: Code(s): E08.621 - Diabetes mellitus due to underlying condition with foot ulcer; L97.512 - Non-pressure chronic ulcer of other part of right foot with fat layer exposed Status: Acute (2) Cellulitis of great toe, right: Code(s): L03.031 - Cellulitis of right toe Status: Acute Assessment and Plan: Continue with empirical antibiotics with some improvement already noted as far the pain and swelling to foot and leg. Blood and Wound Cx still pending. ESR and CRP ordered. WBC 9.4 Ordered local wound care with Bactroban, 4x4 gauze and Skin Tape. Continue to ambulate with surgical shoe. MRI pending rule out osteomyelitis if + will require senior care IV antibiotic management per ID, in office Xrays did not identify osteolysis to the distal phalanx along the ulcer site. Arterial Studies indicate adequate toe perfusion for healing, TBI Right hallux 0.67. I Will continue to follow, Dr. Hernandez: I appreciate internal medicine help with the care of this gentleman.
[2025-01-28 10:38] LABS: CRP < 0.5 mg/dL (<1.0)
--- NOTE | 2025-01-28 12:17 | P.PNIM_ITS ---
Progress Note: A&P Assessment and Plan (1) Foot ulcer: Code(s): L97.509 - Non-pressure chronic ulcer of other part of unspecified foot with unspecified severity Status: Acute (2) Leg edema: Code(s): R60.0 - Localized edema Status: Acute Plan Right foot ulcer right big toe ulcer on exam MRI foot w/wo ordered Blood culture pending Continue Cefepime, Flagyl and Vancomycin GUILLERMO showed mild led PAD with guillermo of 0.87, Arterial duplex no significant stenosis Podiatry consulted Leg edema r/o CHF ECHO ordered Dm2 patient on CGM SSI on accucheks HTN titrate home meds with clinical course DVT prophylaxis on Sq lovenox Full code SDM: daughter Subjective Date/time seen: 01/28/25 12:17 Interval history: Comfortable at bedside and awaiting MRI report Review of Systems Review of Systems: All other systems were reviewed and negative except as noted in the HPI above Exam Narrative: General: alert and comfortable Eyes: EOMI, PERRLA ENNT External ears normal, Neck is supple, no masses, Respiratory systems: Clear to auscultation Cardiovascular S1, S2, normal rhythm, no murmur, rub, or gallop; no thrill or palpable murmurs on palpation. Gastrointestinal: soft, non-tender, and non-distended abdomen with no masses; BS present Skin: right big toe ulcer abotu 1 cm by 1cm, foulsmelling but no drainage Musculoskeletal: no abnormality and no tenderness, normal ROM Neurologic: Alert and oriented x3, non focal Mental Status Exam: normal affect Objective Data Vital Signs Vital Signs: Vital Signs - 24 hr 01/27/25 13:58 01/27/25 19:27 01/27/25 20:10 Temperature 98.2 F Pulse Rate 55 L Respiratory Rate 14 Blood Pressure 112/47 L Pulse Oximetry 98 Oxygen Delivery Room Air Room Air 01/27/25 20:15 01/27/25 20:36 01/28/25 04:43 Temperature 97.9 F 97.6 F Pulse Rate 87 50 L 62 Respiratory Rate 18 18 Blood Pressure 137/70 138/65 Pulse Oximetry 100 100 Oxygen Delivery 01/28/25 09:11 Temperature Pulse Rate 65 Respiratory Rate Blood Pressure Pulse Oximetry Oxygen Delivery Intake/Output Intake/Output: Intake & Output 01/25/25 01/26/25 01/27/2525 23:59 23:59 23:59 23:59 Intake Total 690 730 Balance 690 730 Meds/Results Medications: Active Medications Generic Name Dose Route Start Last Admin Trade Name Keith PRN Reason Stop Dose Admin Aspirin 81 mg 01/28/25 09:00 01/28/25 09:12 Aspirin 81 Mg Enteric Tablet PO 81 mg DAILY JELANI Administration Atorvastatin Calcium 80 mg 01/28/25 09:00 01/28/25 09:10 Atorvastatin 40 Mg Tablet PO 80 mg DAILY JELANI Administration Carvedilol 6.25 mg 01/27/25 21:00 01/28/25 09:11 Carvedilol 6.25 Mg Tablet PO 6.25 mg Q12HR JELANI Administration Dextrose 12.5 gm 01/27/25 15:05 Dextrose 50% 25 Gm/50 Ml Syringe IV PUSH PRN PRN Hypoglycemia Protocol Empagliflozin 25 mg 01/28/25 09:00 01/28/25 09:12 Empagliflozin 25 Mg Tablet PO 25 mg DAILY JELANI Administration Enoxaparin Sodium 40 mg 01/28/25 09:00 01/28/25 09:10 Enoxaparin 40 Mg/0.4 Ml Syringe SUB-Q 40 mg DAILY JELANI Administration Glucagon 1 mg 01/27/25 15:05 Glucagon For Inj 1 Mg Vial IM PRN PRN Hypoglycemia Protocol Glucose 15 gm 01/27/25 15:05 Glucose Oral Gel 15 Gm Of Glucse In 37.5 Gm Tube PO PRN PRN Hypoglycemia Protocol Dextrose 1,000 mls @ 100 mls/hr 01/27/25 15:05 Dextrose 5% 1,000 Ml IVPB PRN PRN Hypoglycemia Protocol Cefepime HCl 2 gm/ Sodium 50 mls @ 100 mls/hr 01/28/25 00:00 01/28/25 09:03 Chloride IVPB 100 mls/hr Q8H JELANI Administration Vancomycin HCl 1,500 mg in 500 mls @ 250 mls/hr 01/28/25 12:00 Vancomycin 1,500 Mg/Ns 500 Ml IVPB Q18H JELANI Metronidazole 500 mg in 100 mls @ 100 mls/hr 01/27/25 21:00 01/28/25 09:03 Flagyl 500 Mg/Iso Soln 100 Ml IVPB 100 mls/hr Q8H JELANI Administration Insulin Aspart 2 - 5 units 01/27/25 17:00 01/28/25 09:03 Insulin Aspart (*Bkc) 100 Units/Ml SUB-Q Not Given TIDWM [facility] Protocol Insulin Aspart 1 - 2 units 01/27/25 21:00 01/27/25 21:34 Insulin Aspart (*Bkc) 100 Units/Ml SUB-Q Not Given HS [facility] Protocol Insulin Glargine 8 units 01/28/25 09:00 01/28/25 09:22 Insulin Glargine (*Bkc) 100 Units/Ml SUB-Q 8 units QAM JELANI Administration Mupirocin 1 applic 01/28/25 09:35 Mupirocin 2% Oint 22 Gm Tube TOPICAL DAILY JELANI Perflutren Lipid Microsphere 0 ml 01/27/25 15:16 Perflutren Lipid Microspheres 1.5 Ml Vial Diluted To 10 Ml Total Volume IV PUSH 01/30/25 15:16 ONCE PRN adequate visualization Protocol Trazodone HCl 50 mg 01/27/25 15:05 Trazodone Hcl 50 Mg Tablet PO QHS PRN insomnia Radiology Results: ITS Impressions Ankle Brachial Index 01/27/25 18:30 IMPRESSION: 1. Mild arterial occlusive disease to the left lower limb with mildly decreased left GUILLERMO and TBI. 2. No significant arterial occlusive disease to the right lower limb with normal right GUILLERMO and TBI. Duplex Scan Lower Extremity Artery 01/27/25 18:31 IMPRESSION: 1. Mild scattered atherosclerotic plaque throughout the arteries of the right lower limb with brisk systolic upstrokes throughout and no evident hemodynamically significant stenosis. Labs Labs: Laboratory Results - last 24 hr 01/27/25 01/27/25 01/27/25 15:17 15:26 16:52 WBC 8.7 RBC 4.44 L Hgb 12.5 L Hct 37.5 L MCV 84.5 MCH 28.2 MCHC 33.3 RDW 14.1 Plt Count 326 MPV 10.8 H Immature Gran % (Auto) 0.2 Neut % (Auto) 60.7 Lymph % (Auto) 25.3 [place] % (Auto) 9.9 H Eos % (Auto) 3.2 Baso % (Auto) 0.7 Lymph # (Auto) 2.19 [place] # (Auto) 0.9 H Eos # (Auto) 0.3 Baso # (Auto) 0.1 Abs Immat Gran (auto) 0.02 Absolute Neuts (auto) 5.3 Absolute Nucleated RBC 0.000 Nucleated RBC % 0.0 ESR 25 H Sodium 145 Potassium 3.9 Chloride 110 H Carbon Dioxide 25 Anion Gap 10 BUN 19 Creatinine 0.97 Estim Creat Clear Calc 71 Estimated GFR > 60 Glucose 107 POC Capillary Glucose 145 H Calcium 9.5 Magnesium Total Bilirubin 0.3 AST 29 ALT 23 Alkaline Phosphatase 162 H C-Reactive Protein < 0.5 Total Protein 7.8 Albumin 4.2 01/27/25 01/28/25 01/28/25 20:31 04:50 08:19 WBC 9.4 RBC 4.40 L Hgb 12.3 L Hct 38.2 L MCV 86.8 MCH 28.0 MCHC 32.2 RDW 14.0 Plt Count 305 MPV 10.7 H Immature Gran % (Auto) 0.4 Neut % (Auto) 62.2 Lymph % (Auto) 24.0 [place] % (Auto) 10.0 H Eos % (Auto) 2.9 Baso % (Auto) 0.5 Lymph # (Auto) 2.25 [place] # (Auto) 0.9 H Eos # (Auto) 0.3 Baso # (Auto) 0.1 Abs Immat Gran (auto) 0.04 H Absolute Neuts (auto) 5.8 Absolute Nucleated RBC 0.000 Nucleated RBC % 0.0 ESR 16 Sodium 142 Potassium 4.0 Chloride 115 H Carbon Dioxide 18 L Anion Gap 9 BUN 17 Creatinine 0.88 Estim Creat Clear Calc 77 Estimated GFR > 60 Glucose 112 H POC Capillary Glucose 141 H 118 H Calcium 9.2 Magnesium 2.4 H Total Bilirubin 0.3 AST 24 ALT 19 Alkaline Phosphatase 151 H C-Reactive Protein < 0.5 Total Protein 7.1 Albumin 3.9
[2025-01-28] MEDS: MUPIROCIN 2% OINT 22 GM TUBE 1 APPLIC TOPICAL (12:54)
[2025-01-28] MEDS: VANCOMYCIN 1,500 MG/NS 500 ML 1,500 MG/500 ML BAG 250 MG IVPB (12:56)
[2025-01-29] MEDS: metroNIDAZOLE 500 MG/ISO 100ML 500 MG/100 ML BAG 100 MG IVPB ×3 (05:08→21:52)
[2025-01-29 05:24] LABS: Hematocrit 35.4 % (42.0-52.0); Hemoglobin 11.7 g/dL (14.0-18.0); Immature Granulocyte Percent A 0.4 % (0-0.5); Lymphocytes Absolute Auto 1.74 K/mm3 (0.9-3.2); Mean Corpuscular HGB Conc 33.1 g/dl (32-36); Mean Corpuscular Hemoglobin 28.0 pg (26-34); Mean Corpuscular Volume 84.7 fl (80-100); Nucleated Red Blood Cells Absolute Auto 0.000 K/mm3 (0.0-0.012); Nucleated Red Blood Cells Perc 0.0 % (0.0-0.2); Platelet Count Result 282 k/mm3 (150-375); Red Blood Count 4.18 M/mm3 (4.6-6.20); White Blood Count 7.2 K/mm3 (4.5-10.0)
[2025-01-29 05:47] LABS: Alanine Aminotransferase 17 U/L (6-50); Albumin Level 3.7 g/dL (3.5-5.1); Alkaline Phosphatase 149 U/L (38-126); Anion Gap 8 mmol/L (4-12); Aspartate Amino Transferase 22 U/L (17-59); Bilirubin,Total 0.3 mg/dL (0.2-1.3); Blood Urea Nitrogen 15 mg/dL (9-20); Calcium 9.0 mg/dL (8.4-10.2); Carbon Dioxide 21 mmol/L (22-30); Chloride 108 mmol/L (98-107); Estimated CRCL calculation 78 ml/min; Estimated Glomerular Filt Rate > 60; Glucose 100 mg/dL (65-110); Magnesium 2.4 mg/dL (1.6-2.3); Potassium 3.9 mmol/L (3.4-5.0); Sodium 137 mmol/L (137-145); Total Protein 7.1 g/dL (6.3-8.2)
[2025-01-29 06:00] VITALS: BP 139/84; PULSE 71; RESP 18; TEMP 36.4; O2SAT 100
[2025-01-29] MEDS: VANCOMYCIN 1,500 MG/NS 500 ML 1,500 MG/500 ML BAG 250 MG IVPB ×2 (06:16→18:23)
[2025-01-29] MEDS: CEFEPIME 2 GM in SODIUM CHLORIDE 0.9% IV 50 ML 100 ML IVPB ×2 (08:40→17:52)
[2025-01-29 08:41] VITALS: PULSE 76
[2025-01-29] MEDS: ATORVASTATIN 40 MG TABLET 80 MG PO (08:41)
[2025-01-29] MEDS: ASPIRIN 81 MG ENTERIC TABLET PO (08:41)
[2025-01-29] MEDS: EMPAGLIFLOZIN 25 MG TABLET PO (08:41)
[2025-01-29] MEDS: MUPIROCIN 2% OINT 22 GM TUBE 1 APPLIC TOPICAL (08:43)
[2025-01-29] MEDS: ENOXAPARIN 40 MG/0.4 ML SYRINGE SUB-Q (08:47)
--- NOTE | 2025-01-29 10:31 | P.PN_ITS ---
Progress Note: A&P Assessment and Plan (1) Diabetic ulcer of right foot associated with diabetes mellitus due to underlying condition, with fat layer exposed: Code(s): E08.621 - Diabetes mellitus due to underlying condition with foot ulcer; L97.512 - Non-pressure chronic ulcer of other part of right foot with fat layer exposed Status: Acute Plan MRI negative for osteomyelitis TBI shows adequate perfusion for healing of right hallux wound Swelling improving to the right hallux with IV antibiotics. Blood culture and Wound Culture still pending- once obtained can be discharged on 3 week course of oral antibiotics based on organism culture and sensitivity. At home dressing change daily with Bactroban ointment 2x2 gauze, and Medipore tape. Cast protector bag to prevent wound getting wet with showers Use a knee scooter for ambulation until wound heals. The patient will be seen in my office early next week for outpatient evaluation. I appreciate hospitalist care of Dr. David Isaac Subjective Date/time seen: 01/29/25 10:31 Interval history: Patient seen at bedside resting comfortably. Denies FCNV. Relates improvement as far as swelling to the right leg. Exam Extrem: Other: Right hallux ulceration to plantar medial right hallux deep to the subcutaneous tissue layer, wound margin granulating already. No malodor noted to wound. Edema and erythema to hallux, foot and leg resolving. No active purulence, no fluctuance, no calor present. Objective Data Vital Signs Vital Signs: Vital Signs - 24 hr 01/28/25 14:00 01/28/25 20:30 01/28/25 20:40 Temperature 36.1 C L Pulse Rate 64 72 63 Respiratory Rate 18 18 Blood Pressure 149/79 H Pulse Oximetry 100 100 Oxygen Delivery Room Air 01/28/25 21:58 01/29/25 06:00 01/29/25 08:41 Temperature 36.6 C 36.4 C L Pulse Rate 63 71 76 Respiratory Rate 18 18 Blood Pressure 148/73 H 139/84 Pulse Oximetry 100 100 Oxygen Delivery Intake/Output Intake/Output: Intake & Output 01/26/25 01/27/25 01/28/25 01/29/25 23:59 23:59 23:59 23:59 Intake Total 690 1610 50 Balance 690 1610 50 Meds/Results Medications: Active Medications Generic Name Dose Route Start Last Admin Trade Name Keith PRN Reason Stop Dose Admin Aspirin 81 mg 01/28/25 09:00 01/29/25 08:41 Aspirin 81 Mg Enteric Tablet PO 81 mg DAILY JELANI Administration Atorvastatin Calcium 80 mg 01/28/25 09:00 01/29/25 08:41 Atorvastatin 40 Mg Tablet PO 80 mg DAILY JELANI Administration Carvedilol 6.25 mg 01/27/25 21:00 01/29/25 08:41 Carvedilol 6.25 Mg Tablet PO 6.25 mg Q12HR JELANI Administration Dextrose 12.5 gm 01/27/25 15:05 Dextrose 50% 25 Gm/50 Ml Syringe IV PUSH PRN PRN Hypoglycemia Protocol Empagliflozin 25 mg 01/28/25 09:00 01/29/25 08:41 Empagliflozin 25 Mg Tablet PO 25 mg DAILY JELANI Administration Enoxaparin Sodium 40 mg 01/28/25 09:00 01/29/25 08:47 Enoxaparin 40 Mg/0.4 Ml Syringe SUB-Q 40 mg DAILY JELANI Administration Glucagon 1 mg 01/27/25 15:05 Glucagon For Inj 1 Mg Vial IM PRN PRN Hypoglycemia Protocol Glucose 15 gm 01/27/25 15:05 Glucose Oral Gel 15 Gm Of Glucse In 37.5 Gm Tube PO PRN PRN Hypoglycemia Protocol Dextrose 1,000 mls @ 100 mls/hr 01/27/25 15:05 Dextrose 5% 1,000 Ml IVPB PRN PRN Hypoglycemia Protocol Cefepime HCl 2 gm/ Sodium 50 mls @ 100 mls/hr 01/28/25 00:00 01/29/25 08:40 Chloride IVPB 100 mls/hr Q8H JELANI Administration Metronidazole 500 mg in 100 mls @ 100 mls/hr 01/27/25 21:00 01/29/25 05:08 Flagyl 500 Mg/Iso Soln 100 Ml IVPB 100 mls/hr Q8H JELANI Administration Vancomycin HCl 1,500 mg in 500 mls @ 250 mls/hr 01/29/25 06:00 01/29/25 06:16 Vancomycin 1,500 Mg/Ns 500 Ml IVPB 250 mls/hr Q12H JELANI Administration Insulin Aspart 2 - 5 units 01/27/25 17:00 01/29/25 08:41 Insulin Aspart (*Bkc) 100 Units/Ml SUB-Q Not Given TIDWM JELANI Protocol Insulin Aspart 1 - 2 units 01/27/25 21:00 01/28/25 21:50 Insulin Aspart (*Bkc) 100 Units/Ml SUB-Q Not Given HS JELANI Protocol Insulin Glargine 8 units 01/28/25 09:00 01/28/25 09:22 Insulin Glargine (*Bkc) 100 Units/Ml SUB-Q 8 units QAM JELANI Administration Mupirocin 1 applic 01/28/25 09:35 01/29/25 08:43 Mupirocin 2% Oint 22 Gm Tube TOPICAL 1 applic DAILY JELANI Administration Perflutren Lipid Microsphere 0 ml 01/27/25 15:16 Perflutren Lipid Microspheres 1.5 Ml Vial Diluted To 10 Ml Total Volume IV PUSH 01/30/25 15:16 ONCE PRN adequate visualization Protocol Trazodone HCl 50 mg 01/27/25 15:05 Trazodone Hcl 50 Mg Tablet PO QHS PRN insomnia Radiology Results: ITS Impressions Ankle Brachial Index 01/27/25 18:30 IMPRESSION: 1. Mild arterial occlusive disease to the left lower limb with mildly decreased left GUILLERMO and TBI. 2. No significant arterial occlusive disease to the right lower limb with normal right GUILLERMO and TBI. Duplex Scan Lower Extremity Artery 01/27/25 18:31 IMPRESSION: 1. Mild scattered atherosclerotic plaque throughout the arteries of the right lower limb with brisk systolic upstrokes throughout and no evident hemodynamically significant stenosis. Foot MRI 01/28/25 15:23 IMPRESSION: 1. Mild hallux valgus with mild bunion and moderate osteoarthritis at the first metatarsophalangeal joint. 2. No evident osteolysis or marrow signal changes to suggest osteomyelitis. Labs Labs: Laboratory Results - last 24 hr 01/28/25 01/28/25 01/28/25 04:50 12:37 16:59 WBC RBC Hgb Hct MCV MCH MCHC RDW Plt Count MPV Immature Gran % (Auto) Neut % (Auto) Lymph % (Auto) [place] % (Auto) Eos % (Auto) Baso % (Auto) Lymph # (Auto) [place] # (Auto) Eos # (Auto) Baso # (Auto) Abs Immat Gran (auto) Absolute Neuts (auto) Absolute Nucleated RBC Nucleated RBC % ESR 16 Sodium Potassium Chloride Carbon Dioxide Anion Gap BUN Creatinine Estim Creat Clear Calc Estimated GFR Glucose POC Capillary Glucose 100 108 H Calcium Magnesium Total Bilirubin AST ALT Alkaline Phosphatase C-Reactive Protein < 0.5 Total Protein Albumin Vancomycin Trough 01/28/25 01/29/25 01/29/25 19:43 04:51 07:55 WBC 7.2 RBC 4.18 L Hgb 11.7 L Hct 35.4 L MCV 84.7 MCH 28.0 MCHC 33.1 RDW 14.0 Plt Count 282 MPV 10.4 Immature Gran % (Auto) 0.4 Neut % (Auto) 62.2 Lymph % (Auto) 24.1 [place] % (Auto) 10.1 H Eos % (Auto) 2.6 Baso % (Auto) 0.6 Lymph # (Auto) 1.74 [place] # (Auto) 0.7 H Eos # (Auto) 0.2 Baso # (Auto) 0.0 Abs Immat Gran (auto) 0.03 Absolute Neuts (auto) 4.5 Absolute Nucleated RBC 0.000 Nucleated RBC % 0.0 ESR Sodium 137 Potassium 3.9 Chloride 108 H Carbon Dioxide 21 L Anion Gap 8 BUN 15 Creatinine 0.87 Estim Creat Clear Calc 78 Estimated GFR > 60 Glucose 100 POC Capillary Glucose 171 H 103 Calcium 9.0 Magnesium 2.4 H Total Bilirubin 0.3 AST 22 ALT 17 Alkaline Phosphatase 149 H C-Reactive Protein Total Protein 7.1 Albumin 3.7 Vancomycin Trough 10.0
[2025-01-29] MEDS: INSULIN GLARGINE (*BKC) 100 UNITS/ML 8 UNITS SUB-Q (11:45)
--- NOTE | 2025-01-29 12:57 | PM.IMPN ---
Progress Note: A&P Assessment and Plan (1) Foot ulcer: Code(s): L97.509 - Non-pressure chronic ulcer of other part of unspecified foot with unspecified severity Status: Acute (2) Leg edema: Code(s): R60.0 - Localized edema Status: Acute Plan Right foot ulcer right big toe ulcer on exam MRI foot w/wo ordered Blood and wound culture pending Continue Cefepime, Flagyl and Vancomycin GUILLERMO showed mild led PAD with guillermo of 0.87, Arterial duplex no significant stenosis Podiatry following and awaiting wound cultures Diastolic CHF Leg edema ECHO showed grade I diastolic dysfunction Started on Lasix po 20mg bid monitor Dm2 patient on CGM SSI on accucheks HTN titrate home meds with clinical course DVT prophylaxis on Sq lovenox Full code SDM: daughter Subjective Date/time seen: 01/29/25 12:57 Interval history: Comfortable at bedside awaiting wound culture for antibiotics Review of Systems Review of Systems: All other systems were reviewed and negative except as noted in the HPI above Exam Narrative: General: alert and comfortable Eyes: EOMI, PERRLA ENNT External ears normal, Neck is supple, no masses, Respiratory systems: Clear to auscultation Cardiovascular S1, S2, normal rhythm, no murmur, rub, or gallop; no thrill or palpable murmurs on palpation. Gastrointestinal: soft, non-tender, and non-distended abdomen with no masses; BS present Skin: right big toe ulcer abotu 1 cm by 1cm, foulsmelling but no drainage Musculoskeletal: no abnormality and no tenderness, normal ROM Neurologic: Alert and oriented x3, non focal Mental Status Exam: normal affect Objective Data Vital Signs Vital Signs: Vital Signs - 24 hr 01/28/25 14:00 01/28/25 20:30 01/28/25 20:40 Temperature 97.0 F L Pulse Rate 64 72 63 Respiratory Rate 18 18 Blood Pressure 149/79 H Pulse Oximetry 100 100 Oxygen Delivery Room Air 01/28/25 21:58 01/29/25 06:00 01/29/25 08:41 Temperature 97.9 F 97.5 F L Pulse Rate 63 71 76 Respiratory Rate 18 18 Blood Pressure 148/73 H 139/84 Pulse Oximetry 100 100 Oxygen Delivery Intake/Output Intake/Output: Intake & Output 01/26/25 01/27/25 01/28/2501/29/25 23:59 23:59 23:59 23:59 Intake Total 690 1610 290 Balance 690 1610 290 Meds/Results Medications: Active Medications Generic Name Dose Route Start Last Admin Trade Name Keith PRN Reason Stop Dose Admin Aspirin 81 mg 01/28/25 09:00 01/29/25 08:41 Aspirin 81 Mg Enteric Tablet PO 81 mg DAILY JELANI Administration Atorvastatin Calcium 80 mg 01/28/25 09:00 01/29/25 08:41 Atorvastatin 40 Mg Tablet PO 80 mg DAILY JELANI Administration Carvedilol 6.25 mg 01/27/25 21:00 01/29/25 08:41 Carvedilol 6.25 Mg Tablet PO 6.25 mg Q12HR JELANI Administration Dextrose 12.5 gm 01/27/25 15:05 Dextrose 50% 25 Gm/50 Ml Syringe IV PUSH PRN PRN Hypoglycemia Protocol Empagliflozin 25 mg 01/28/25 09:00 01/29/25 08:41 Empagliflozin 25 Mg Tablet PO 25 mg DAILY JELANI Administration Enoxaparin Sodium 40 mg 01/28/25 09:00 01/29/25 08:47 Enoxaparin 40 Mg/0.4 Ml Syringe SUB-Q 40 mg DAILY JELANI Administration Glucagon 1 mg 01/27/25 15:05 Glucagon For Inj 1 Mg Vial IM PRN PRN Hypoglycemia Protocol Glucose 15 gm 01/27/25 15:05 Glucose Oral Gel 15 Gm Of Glucse In 37.5 Gm Tube PO PRN PRN Hypoglycemia Protocol Dextrose 1,000 mls @ 100 mls/hr 01/27/25 15:05 Dextrose 5% 1,000 Ml IVPB PRN PRN Hypoglycemia Protocol Cefepime HCl 2 gm/ Sodium 50 mls @ 100 mls/hr 01/28/25 00:00 01/29/25 08:40 Chloride IVPB 100 mls/hr Q8H JELANI Administration Metronidazole 500 mg in 100 mls @ 100 mls/hr 01/27/25 21:00 01/29/25 05:08 Flagyl 500 Mg/Iso Soln 100 Ml IVPB 100 mls/hr Q8H JELANI Administration Vancomycin HCl 1,500 mg in 500 mls @ 250 mls/hr 01/29/25 06:00 01/29/25 06:16 Vancomycin 1,500 Mg/Ns 500 Ml IVPB 250 mls/hr Q12H JELANI Administration Insulin Aspart 2 - 5 units 01/27/25 17:00 01/29/25 12:48 Insulin Aspart (*Bkc) 100 Units/Ml SUB-Q Not Given TIDWM JELANI Protocol Insulin Aspart 1 - 2 units 01/27/25 21:00 01/28/25 21:50 Insulin Aspart (*Bkc) 100 Units/Ml SUB-Q Not Given HS JELANI Protocol Insulin Glargine 8 units 01/28/25 09:00 01/29/25 11:45 Insulin Glargine (*Bkc) 100 Units/Ml SUB-Q 8 units QAM JELANI Administration Mupirocin 1 applic 01/28/25 09:35 01/29/25 08:43 Mupirocin 2% Oint 22 Gm Tube TOPICAL 1 applic DAILY JELANI Administration Perflutren Lipid Microsphere 0 ml 01/27/25 15:16 Perflutren Lipid Microspheres 1.5 Ml Vial Diluted To 10 Ml Total Volume IV PUSH 01/30/25 15:16 ONCE PRN adequate visualization Protocol Trazodone HCl 50 mg 01/27/25 15:05 Trazodone Hcl 50 Mg Tablet PO QHS PRN insomnia Radiology Results: ITS Impressions Ankle Brachial Index 01/27/25 18:30 IMPRESSION: 1. Mild arterial occlusive disease to the left lower limb with mildly decreased left GUILLERMO and TBI. 2. No significant arterial occlusive disease to the right lower limb with normal right GUILLERMO and TBI. Duplex Scan Lower Extremity Artery 01/27/25 18:31 IMPRESSION: 1. Mild scattered atherosclerotic plaque throughout the arteries of the right lower limb with brisk systolic upstrokes throughout and no evident hemodynamically significant stenosis. Foot MRI 01/28/25 15:23 IMPRESSION: 1. Mild hallux valgus with mild bunion and moderate osteoarthritis at the first metatarsophalangeal joint. 2. No evident osteolysis or marrow signal changes to suggest osteomyelitis. Labs Labs: Laboratory Results - last 24 hr 01/28/25 01/28/25 01/29/25 16:59 19:43 04:51 WBC 7.2 RBC 4.18 L Hgb 11.7 L Hct 35.4 L MCV 84.7 MCH 28.0 MCHC 33.1 RDW 14.0 Plt Count 282 MPV 10.4 Immature Gran % (Auto) 0.4 Neut % (Auto) 62.2 Lymph % (Auto) 24.1 [place] % (Auto) 10.1 H Eos % (Auto) 2.6 Baso % (Auto) 0.6 Lymph # (Auto) 1.74 [place] # (Auto) 0.7 H Eos # (Auto) 0.2 Baso # (Auto) 0.0 Abs Immat Gran (auto) 0.03 Absolute Neuts (auto) 4.5 Absolute Nucleated RBC 0.000 Nucleated RBC % 0.0 Sodium 137 Potassium 3.9 Chloride 108 H Carbon Dioxide 21 L Anion Gap 8 BUN 15 Creatinine 0.87 Estim Creat Clear Calc 78 Estimated GFR > 60 Glucose 100 POC Capillary Glucose 108 H 171 H Calcium 9.0 Magnesium 2.4 H Total Bilirubin 0.3 AST 22 ALT 17 Alkaline Phosphatase 149 H Total Protein 7.1 Albumin 3.7 Vancomycin Trough 10.0 01/29/25 01/29/25 07:55 12:05 WBC RBC Hgb Hct MCV MCH MCHC RDW Plt Count MPV Immature Gran % (Auto) Neut % (Auto) Lymph % (Auto) [place] % (Auto) Eos % (Auto) Baso % (Auto) Lymph # (Auto) [place] # (Auto) Eos # (Auto) Baso # (Auto) Abs Immat Gran (auto) Absolute Neuts (auto) Absolute Nucleated RBC Nucleated RBC % Sodium Potassium Chloride Carbon Dioxide Anion Gap BUN Creatinine Estim Creat Clear Calc Estimated GFR Glucose POC Capillary Glucose 103 99 Calcium Magnesium Total Bilirubin AST ALT Alkaline Phosphatase Total Protein Albumin Vancomycin Trough
[2025-01-29 15:25] VITALS: BP 125/78; PULSE 66; RESP 18; TEMP 36.2; O2SAT 100
[2025-01-29] MEDS: FUROSEMIDE 20 MG TABLET PO (17:52)
[2025-01-29 20:00] VITALS: PULSE 65; RESP 16; O2SAT 100
[2025-01-29 20:54] VITALS: BP 141/75; PULSE 65; RESP 16; TEMP 36.8; O2SAT 100
[2025-01-29 21:51] VITALS: PULSE 65
[2025-01-30] VITALS (7 sets, daily range): BP systolic 124–131; BP diastolic 70–86; PULSE 67–74; RESP 14–18; TEMP 36.4–36.7; O2SAT 99–100
[2025-01-30] MEDS: CEFEPIME 2 GM in SODIUM CHLORIDE 0.9% IV 50 ML 100 ML IVPB ×4 (00:24→23:32)
[2025-01-30] MEDS: metroNIDAZOLE 500 MG/ISO 100ML 500 MG/100 ML BAG 100 MG IVPB ×3 (04:42→21:07)
[2025-01-30 05:37] LABS: Hematocrit 36.3 % (42.0-52.0); Hemoglobin 12.1 g/dL (14.0-18.0); Immature Granulocyte Percent A 0.3 % (0-0.5); Lymphocytes Absolute Auto 1.91 K/mm3 (0.9-3.2); Mean Corpuscular HGB Conc 33.3 g/dl (32-36); Mean Corpuscular Hemoglobin 27.9 pg (26-34); Mean Corpuscular Volume 83.6 fl (80-100); Nucleated Red Blood Cells Absolute Auto 0.000 K/mm3 (0.0-0.012); Nucleated Red Blood Cells Perc 0.0 % (0.0-0.2); Platelet Count Result 290 k/mm3 (150-375); Red Blood Count 4.34 M/mm3 (4.6-6.20); White Blood Count 7.3 K/mm3 (4.5-10.0)
[2025-01-30 05:59] LABS: Alanine Aminotransferase 17 U/L (6-50); Albumin Level 3.7 g/dL (3.5-5.1); Alkaline Phosphatase 145 U/L (38-126); Anion Gap 9 mmol/L (4-12); Aspartate Amino Transferase 24 U/L (17-59); Bilirubin,Total 0.3 mg/dL (0.2-1.3); Blood Urea Nitrogen 16 mg/dL (9-20); Calcium 9.1 mg/dL (8.4-10.2); Carbon Dioxide 19 mmol/L (22-30); Chloride 112 mmol/L (98-107); Estimated CRCL calculation 77 ml/min; Estimated Glomerular Filt Rate > 60; Glucose 107 mg/dL (65-110); Magnesium 2.5 mg/dL (1.6-2.3); Potassium 3.8 mmol/L (3.4-5.0); Sodium 140 mmol/L (137-145); Total Protein 6.8 g/dL (6.3-8.2)
[2025-01-30] MEDS: VANCOMYCIN 1,500 MG/NS 500 ML 1,500 MG/500 ML BAG 250 MG IVPB (06:02)
[2025-01-30] MEDS: FUROSEMIDE 20 MG TABLET PO ×2 (08:15→16:29)
[2025-01-30] MEDS: EMPAGLIFLOZIN 25 MG TABLET PO (08:15)
[2025-01-30] MEDS: ATORVASTATIN 40 MG TABLET 80 MG PO (08:15)
[2025-01-30] MEDS: ASPIRIN 81 MG ENTERIC TABLET PO (08:15)
[2025-01-30] MEDS: ENOXAPARIN 40 MG/0.4 ML SYRINGE SUB-Q (08:17)
[2025-01-30] MEDS: MUPIROCIN 2% OINT 22 GM TUBE 1 APPLIC TOPICAL (08:17)
[2025-01-30] MEDS: INSULIN GLARGINE (*BKC) 100 UNITS/ML 8 UNITS SUB-Q (08:19)
--- NOTE | 2025-01-30 12:16 | PM.IMPN ---
Progress Note: A&P Assessment and Plan (1) Foot ulcer: Code(s): L97.509 - Non-pressure chronic ulcer of other part of unspecified foot with unspecified severity Status: Acute (2) Leg edema: Code(s): R60.0 - Localized edema Status: Acute Plan Right foot ulcer right big toe ulcer on exam MRI foot w/wo no osteomyelitis Blood and wound culture pending Continue Cefepime, Flagyl and Vancomycin GUILLERMO showed mild led PAD with guillermo of 0.87, Arterial duplex no significant stenosis Podiatry following and awaiting wound cultures Diastolic CHF Leg edema ECHO showed grade I diastolic dysfunction Started on Lasix po 20mg bid monitor Dm2 patient on CGM SSI on accucheks HTN titrate home meds with clinical course DVT prophylaxis on Sq lovenox awaiting Wound culture results Subjective Date/time seen: 01/30/25 12:16 Interval history: Comfortable at bedside awaiting wound culture for antibiotics Review of Systems Review of Systems: All other systems were reviewed and negative except as noted in the HPI above Exam Narrative: General: alert and comfortable Eyes: EOMI, PERRLA ENNT External ears normal, Neck is supple, no masses, Respiratory systems: Clear to auscultation Cardiovascular S1, S2, normal rhythm, no murmur, rub, or gallop; no thrill or palpable murmurs on palpation. Gastrointestinal: soft, non-tender, and non-distended abdomen with no masses; BS present Skin: right big toe ulcer abotu 1 cm by 1cm, foulsmelling but no drainage Musculoskeletal: no abnormality and no tenderness, normal ROM Neurologic: Alert and oriented x3, non focal Mental Status Exam: normal affect Objective Data Vital Signs Vital Signs: Vital Signs - 24 hr 01/29/25 15:25 01/29/25 20:00 01/29/25 20:54 Temperature 97.2 F L 98.2 F Pulse Rate 66 65 65 Respiratory Rate 18 16 16 Blood Pressure 125/78 141/75 H Pulse Oximetry 100 100 100 Oxygen Delivery Room Air 01/29/25 21:51 01/30/25 04:41 01/30/25 08:00 Temperature 97.8 F Pulse Rate 65 74 Respiratory Rate 14 Blood Pressure 131/71 Pulse Oximetry 99 99 Oxygen Delivery Room Air 01/30/25 08:15 Temperature Pulse Rate 70 Respiratory Rate Blood Pressure Pulse Oximetry Oxygen Delivery Intake/Output Intake/Output: Intake & Output 01/27/25 01/28/25 01/29/25 01/30/25 23:59 23:59 23:59 23:59 Intake Total 690 1610 2320 680 Balance 690 1610 2320 680 Meds/Results Medications: Active Medications Generic Name Dose Route Start Last Admin Trade Name Freq PRN Reason Stop Dose Admin Aspirin 81 mg 01/28/25 09:00 01/30/25 08:15 Aspirin 81 Mg Enteric Tablet PO 81 mg DAILY JELANI Administration Atorvastatin Calcium 80 mg 01/28/25 09:00 01/30/25 08:15 Atorvastatin 40 Mg Tablet PO 80 mg DAILY JELANI Administration Carvedilol 6.25 mg 01/27/25 21:00 01/30/25 08:15 Carvedilol 6.25 Mg Tablet PO 6.25 mg Q12HR JELANI Administration Dextrose 12.5 gm 01/27/25 15:05 Dextrose 50% 25 Gm/50 Ml Syringe IV PUSH PRN PRN Hypoglycemia Protocol Empagliflozin 25 mg 01/28/25 09:00 01/30/25 08:15 Empagliflozin 25 Mg Tablet PO 25 mg DAILY JELANI Administration Enoxaparin Sodium 40 mg 01/28/25 09:00 01/30/25 08:17 Enoxaparin 40 Mg/0.4 Ml Syringe SUB-Q 40 mg DAILY JELANI Administration Furosemide 20 mg 01/29/25 17:00 01/30/25 08:15 Furosemide 20 Mg Tablet PO 20 mg BID JELANI Administration Glucagon 1 mg 01/27/25 15:05 Glucagon For Inj 1 Mg Vial IM PRN PRN Hypoglycemia Protocol Glucose 15 gm 01/27/25 15:05 Glucose Oral Gel 15 Gm Of Glucse In 37.5 Gm Tube PO PRN PRN Hypoglycemia Protocol Dextrose 1,000 mls @ 100 mls/hr 01/27/25 15:05 Dextrose 5% 1,000 Ml IVPB PRN PRN Hypoglycemia Protocol Cefepime HCl 2 gm/ Sodium 50 mls @ 100 mls/hr 01/28/25 00:00 01/30/25 08:13 Chloride IVPB 100 mls/hr Q8H JELANI Administration Metronidazole 500 mg in 100 mls @ 100 mls/hr 01/27/25 21:00 01/30/25 06:03 Flagyl 500 Mg/Iso Soln 100 Ml IVPB Infused Q8H JELANI Infusion Vancomycin HCl 1,500 mg in 500 mls @ 250 mls/hr 01/29/25 06:00 01/30/25 06:02 Vancomycin 1,500 Mg/Ns 500 Ml IVPB 250 mls/hr Q12H JELANI Administration Insulin Aspart 2 - 5 units 01/27/25 17:00 01/30/25 11:51 Insulin Aspart (*Bkc) 100 Units/Ml SUB-Q Not Given TIDWM JELANI Protocol Insulin Aspart 1 - 2 units 01/27/25 21:00 01/29/25 21:06 Insulin Aspart (*Bkc) 100 Units/Ml SUB-Q Not Given HS JELANI Protocol Insulin Glargine 8 units 01/28/25 09:00 01/30/25 08:19 Insulin Glargine (*Bkc) 100 Units/Ml SUB-Q 8 units QAM JELANI Administration Mupirocin 1 applic 01/28/25 09:35 01/30/25 08:17 Mupirocin 2% Oint 22 Gm Tube TOPICAL 1 applic DAILY JELANI Administration Perflutren Lipid Microsphere 0 ml 01/27/25 15:16 Perflutren Lipid Microspheres 1.5 Ml Vial Diluted To 10 Ml Total Volume IV PUSH 01/30/25 15:16 ONCE PRN adequate visualization Protocol Trazodone HCl 50 mg 01/27/25 15:05 Trazodone Hcl 50 Mg Tablet PO QHS PRN insomnia Radiology Results: ITS Impressions Ankle Brachial Index 01/27/25 18:30 IMPRESSION: 1. Mild arterial occlusive disease to the left lower limb with mildly decreased left GUILLERMO and TBI. 2. No significant arterial occlusive disease to the right lower limb with normal right GUILLERMO and TBI. Duplex Scan Lower Extremity Artery 01/27/25 18:31 IMPRESSION: 1. Mild scattered atherosclerotic plaque throughout the arteries of the right lower limb with brisk systolic upstrokes throughout and no evident hemodynamically significant stenosis. Foot MRI 01/28/25 15:23 IMPRESSION: 1. Mild hallux valgus with mild bunion and moderate osteoarthritis at the first metatarsophalangeal joint. 2. No evident osteolysis or marrow signal changes to suggest osteomyelitis. Labs Labs: Laboratory Results - last 24 hr 01/29/25 01/29/25 01/30/25 16:46 20:36 05:09 WBC 7.3 RBC 4.34 L Hgb 12.1 L Hct 36.3 L MCV 83.6 MCH 27.9 MCHC 33.3 RDW 13.8 Plt Count 290 MPV 10.4 Immature Gran % (Auto) 0.3 Neut % (Auto) 60.3 Lymph % (Auto) 26.2 [place] % (Auto) 9.7 H Eos % (Auto) 3.0 Baso % (Auto) 0.5 Lymph # (Auto) 1.91 [place] # (Auto) 0.7 H Eos # (Auto) 0.2 Baso # (Auto) 0.0 Abs Immat Gran (auto) 0.02 Absolute Neuts (auto) 4.4 Absolute Nucleated RBC 0.000 Nucleated RBC % 0.0 Sodium 140 Potassium 3.8 Chloride 112 H Carbon Dioxide 19 L Anion Gap 9 BUN 16 Creatinine 0.88 Estim Creat Clear Calc 77 Estimated GFR > 60 Glucose 107 POC Capillary Glucose 85 113 H Calcium 9.1 Magnesium 2.5 H Total Bilirubin 0.3 AST 24 ALT 17 Alkaline Phosphatase 145 H Total Protein 6.8 Albumin 3.7 01/30/25 01/30/25 07:46 11:29 WBC RBC Hgb Hct MCV MCH MCHC RDW Plt Count MPV Immature Gran % (Auto) Neut % (Auto) Lymph % (Auto) [place] % (Auto) Eos % (Auto) Baso % (Auto) Lymph # (Auto) [place] # (Auto) Eos # (Auto) Baso # (Auto) Abs Immat Gran (auto) Absolute Neuts (auto) Absolute Nucleated RBC Nucleated RBC % Sodium Potassium Chloride Carbon Dioxide Anion Gap BUN Creatinine Estim Creat Clear Calc Estimated GFR Glucose POC Capillary Glucose 110 H 122 H Calcium Magnesium Total Bilirubin AST ALT Alkaline Phosphatase Total Protein Albumin
[2025-01-30] MEDS: VANCOMYCIN 1,750 MG/NS 500 ML 1,750 MG/500 ML BAG 250 MG IVPB (17:57)
[2025-01-31] MEDS: metroNIDAZOLE 500 MG/ISO 100ML 500 MG/100 ML BAG 100 MG IVPB (04:48)
[2025-01-31 04:56] VITALS: BP 134/72; PULSE 67; RESP 16; TEMP 36.8; O2SAT 98
[2025-01-31] MEDS: VANCOMYCIN 1,750 MG/NS 500 ML 1,750 MG/500 ML BAG 250 MG IVPB (05:50)
[2025-01-31 08:00] VITALS: O2SAT 98
[2025-01-31] MEDS: CEFEPIME 2 GM in SODIUM CHLORIDE 0.9% IV 50 ML 100 ML IVPB (08:00)
[2025-01-31] MEDS: MUPIROCIN 2% OINT 22 GM TUBE 1 APPLIC TOPICAL (08:20)
[2025-01-31] MEDS: INSULIN GLARGINE (*BKC) 100 UNITS/ML 8 UNITS SUB-Q (08:20)
[2025-01-31 08:24] VITALS: PULSE 68
[2025-01-31] MEDS: EMPAGLIFLOZIN 25 MG TABLET PO (08:24)
[2025-01-31] MEDS: FUROSEMIDE 20 MG TABLET PO (08:24)
[2025-01-31] MEDS: ATORVASTATIN 40 MG TABLET 80 MG PO (08:24)
[2025-01-31] MEDS: ASPIRIN 81 MG ENTERIC TABLET PO (08:24)
[2025-01-31] MEDS: ENOXAPARIN 40 MG/0.4 ML SYRINGE SUB-Q (08:25)
[2025-01-31 10:07] LABS: Hemoglobin A1C 7.1 % (<5.7)
--- NOTE | 2025-01-31 10:28 | P.DS_ITS ---
DS: Admitting Diagnosis Discharge Date 01/31/25 Admitting Diagnosis right foot ulcer DS: Discharge Diagnosis Discharge Diagnosis (1) Foot ulcer: Code(s): L97.509 - Non-pressure chronic ulcer of other part of unspecified foot with unspecified severity Status: Acute DS: Summary Hospital Course Hospital Course: 69-year-old male past medical history of type 2 diabetes and hypertension who was referred from the podiatry office on account of right foot ulcer. Patient noted he noticed an ulcer on his right big toe about a week ago, however he noted that the ulcer continue to worsen with foul smell but deneis any fever, vomiting, diarrhea, and dysuria. Also reported bilateral leg swelling of few months and worsening Presented to the podiatry's office from where he was admitted directly to the hospital. Patient was started on Cefepime, Flagyl and Vanc, blood and wound culture were obtained, Podiatry was consulted. MRI no osteomyelitis. However, today wound culture still pending and i discussed wtih Dr Hernandez and he agreed to discharge patient on Doxycycline and Augmentin and he will follow up with wound culture. Also ECHO showed diastolic dysfunction with leg edema he was started on lasix and leg edema resolved. Discharged on lasix 20mg daily. F/u with PCP in 3-5 days F/u with podiatry as instructed Time Spent with Patient Time attestation: Total time spent providing and/or coordinating discharge services: DS: Data Data Completed and Pending Labs on day of discharge: Labs from last 24 hours 01/31/25 01/30/25 01/30/25 08:04 21:02 16:53 POC Capillary Glucose 98 130 H Hemoglobin A1c Vancomycin Trough 13.1 01/30/25 01/30/25 01/30/25 16:16 11:29 05:05 POC Capillary Glucose 104 122 H Hemoglobin A1c 7.1 H Vancomycin Trough Preliminary micro results at discharge 01/28/25 09:37 Aerobic Culture - Preliminary Foot Right 01/27/25 15:26 Blood Culture - Preliminary Blood 01/27/25 15:36 Blood Culture - Preliminary Blood Discharge Plan Discharge Attending physician on discharge: Castillo Mock Consulting providers: Drew Hernandez Jr. Discharging Clinician: Castillo Mock Anticipated Discharge Date/Time: 01/31/25 10:12 Patient Disposition: Home Activity: as tolerated Diet: as tolerated, heart healthy and diabetic Patient Instructions: Antibiotic Form Patient Language: Cameroonian Stand Alone Forms: General Discharge Information Follow-up/Referrals: Melia Ortiz MD [Primary Care Provider] - (F/u with PCP in 3-5 days) Drew Hernandez Jr., DPM [Physician] - (F/u with Dr Hernandez on Friday as instructed ) Discharge Medications: New amoxicillin-pot clavulanate 875-125 mg tablet 1 tablet PO Q12H 10 Days Qty: 20 0RF doxycycline hyclate 100 mg tablet 100 mg PO BID 10 Days Qty: 20 0RF furosemide [Lasix] 20 mg tablet 20 mg PO DAILY 30 Days Qty: 30 1RF Continued (DME) blood-glucose meter [OneTouch Verio Meter] Misc See Rx Instructions .ROUTE .MEDSUPPLY Qty: 1 0RF Rx Instructions: Use to check bloos sugar while fasting (DME) lancets [OneTouch Delica Lancets] 30 gauge misc See Rx Instructions .ROUTE .MEDSUPPLY Qty: 100 3RF Rx Instructions: Use to check blood sugar while fasting (DME) Dexcom G6 Transmitter Device See Rx Instructions .Route Qty: 1 0RF Rx Instructions: As directed insulin glargine [Lantus Solostar U-100 Insulin] 100 unit/mL (3 mL) insulin pen 8 unit subcut QAM Qty: 15 5RF (DME) pen needle, diabetic [BD Ultra-Fine Keysha Pen Needle] 32 gauge x 5/32 needle See Rx Instructions .Route Qty: 200 12RF Rx Instructions: As directed QID (DME) pen needle, diabetic [BD Ultra-Fine Orig Pen Needle] 29 gauge x 1/2 needle See Rx Instructions .Route Qty: 200 12RF Rx Instructions: As directed QID carvedilol 6.25 mg tablet 6.25 mg PO BID Rx Instructions: must administer with a meal/food gabapentin 100 mg capsule 300 mg PO .COMPLEX Rx Instructions: 300 mg orally every AM, 1 after lunch, and 3 HS; acetaminophen 650 mg tablet extended release 650 mg PO Q12H Patient Comments: Says takes prn OneTouch Verio test strips Strip See Rx Instructions .ROUTE .COMPLEX Qty: 300 5RF Dose Instruction: USE TO CHECK BLOOD SUGAR WHILE FASTING, AT LUNCH, AT DINNER, AND AT BEDTIME. Rx Instructions: Use fasting and before meals BID atorvastatin 80 mg tablet 80 mg PO DAILY Qty: 30 0RF insulin aspart U-100 [Novolog FlexPen U-100 Insulin] 100 unit/mL (3 mL) insulin pen 3 unit subcut TID Qty: 15 5RF losartan 50 mg tablet 100 mg PO DAILY metformin 500 mg tablet 500 mg PO DAILY Qty: 90 3RF aspirin [Adult Aspirin Regimen] 81 mg tablet,delayed release (DR/EC) 81 mg PO DAILY Qty: 90 3RF trazodone 50 mg tablet 50 mg PO QHS PRN (Reason: insomnia) Qty: 30 3RF spironolactone 25 mg tablet 25 mg PO DAILY Qty: 30 4RF diltiazem HCl [Tiadylt ER] 360 mg capsule,extended release 24hr See Rx Instructions .ROUTE .COMPLEX Qty: 90 1RF Dose Instruction: TAKE 1 CAPSULE BY MOUTH EVERY DAY Rx Instructions: TAKE 1 CAPSULE BY MOUTH EVERY DAY Farxiga 10 mg tablet 10 mg PO DAILY Qty: 90 2RF Date of admission: 01/27/25 15:15 Primary Care Provider: Melia Ortiz Admitting Provider: Castillo Mock Attending physician on admission: Castillo Mock Condition: Improved
--- NOTE | 2025-01-31 10:35 | P.CDI_ITS ---
CDI Query Clarification Request Please specify acuity of heart failure if known. * Acute * Chronic * Acute on Chronic * Unknown The medical chart reflects the following: Leg edema r/o CHF ECHO ordered Diastolic CHF Leg edema ECHO showed grade I diastolic dysfunction Started on Lasix po 20mg bid monitor Also ECHO showed diastolic dysfunction with leg edema he was started on lasix and leg edema resolved. Discharged on lasix 20mg daily. echo: Summary 1. Complete two-dimensional, color flow and Doppler transthoracic echocardiogram is performed. 2. Left ventricular chamber dimension is normal. 3. Left ventricular systolic function is normal, estimated at 55-60. 4. The left ventricular diastolic function is grade I diastolic dysfunction. 5. E/e' 10 is mildly elevated. 6. Left atrial chamber dimension is mildly enlarged. 7. There is mild mitral valve regurgitation. <Alyssa Smith RN - Last Filed: 01/31/25 10:42> Clarified Diagnosis Clarified Diagnosis: Acute <Castillo Mock MD - Last Filed: 01/31/25 10:57>
== END 2025-01-31 11:35 | disposition home or self-care (01) | DRG 637 ==
PROVIDERS: Podiatrist Foot & Ankle Surgery; Admitting Provider Internal Medicine; PCP Family Medicine; Visit Provider Internal Medicine
DX: E11.621 Type 2 diabetes mellitus with foot ulcer (principal); I50.21 Acute systolic (congestive) heart failure; L97.512 Non-pressure chronic ulcer of other part of right foot with fat layer exposed; E11.628 Type 2 diabetes mellitus with other skin complications; L03.031 Cellulitis of right toe; I11.0 Hypertensive heart disease with heart failure; E78.5 Hyperlipidemia, unspecified; E78.00 Pure hypercholesterolemia, unspecified; M17.0 Bilateral primary osteoarthritis of knee; Z87.891 Personal history of nicotine dependence; Z79.4 Long term (current) use of insulin; Z79.82 Long term (current) use of aspirin
CPT/HCPCS: 36415; 73720; 80053; 80202; 82948; 83036; 83735; 85025; 85652; 86140; 87040; 87070; 87075; 93306; 93922; 93926; A9270; A9577; J0692; J1650; J1815; J1836; J3373

== ENCOUNTER 2025-02-02 00:15 | Day surgery (SDC) | payer BC, SELFPAY ==
[2025-01-27 14:26] VITALS: BMI 29.9
--- NOTE | 2025-01-27 14:34 | PC.NURSE ---
Report to the Outpatient Waiting Room, entrance under the green pavilion located off [facility], at time _0745_ on date _[id number]_. Planned Procedure Time: _0945_.? Time changes happen often and if your time is changed the preop area will call you the afternoon before. - You and your visitor will be asked to self-screen and do not enter if you have any COVID symptoms. Please call surgeon if you need to reschedule. - A mask is optional within the hospital at this time. - No food or drink from midnight until time of surgery and no smoking, or chewing tobacco (or any form of nicotine). No chewing gum, candy or mints. Take only the following medications with a SIP of water on the morning of surgery: ___Carvidilol, Diltiazem and Gabapentin DO NOT STOP ANY OF YOUR OTHER PRESCRIPTION MEDICATIONS PRIOR TO SURGERY EXCEPT THE FOLLOWING Hold all vitamins and supplements for 3 days per anesthesiologist. Medications to discontinue per physician Please check with Dr Kang's office if need to hold Aspirin. ___ Date to take last dose Please no make-up, nail montserratian, hairspray, perfume, deodorant, or body powder the day of surgery.? No jewelry (including any body piercings) or valuables the day of surgery, leave them at home.? Please take a shower or bath the night before, or the morning of, surgery with an antibacterial soap.? Wear comfortable, loose fitting clothing. - Jewelry must be removed prior to entering the operating room.? Rings and piercings that are not removed may be cut off. - The hospital will not accept responsibility for valuables.? - Please leave all valuables, including medications, at home the day of surgery. If you are going home after surgery, a licensed line haul driver must drive you home.? - NO public transportation without another adult if you receive anesthesia. - We recommend that an adult stay with you for 24 hours following discharge. - We also recommend that you do not drive, make important decision, drink alcoholic beverages, or take any drugs that were not prescribed by your health care provider for at least 24 hours after your discharge time. Follow any additional instructions given to you from your surgeon. Telephone instructions given to __Charles___and asked if any additional questions and then verbalized understanding. Patient advised to call surgeon office or pre surgery nurse liaison [phone] if any additional questions.
--- OUTSIDE RECORDS SUMMARY | 2025-02-02 00:17 | XMS_ITS | Clinical Summary ---
Author Organization [facility] Address [address], [facility] [place] [place] [address] Phone Care Team Providers Care Global Marketing Manager Name Role Phone China Alvarenga MD Primary [...] Recently Relevant to Health Maintenance Care Teams Global Marketing Manager Relationship Specialty Start Date End Date China Alvarenga MD [address] [place] [address] PCP - General Family Medicine 04/13/20
--- OUTSIDE RECORDS SUMMARY | 2025-02-02 00:17 | XMS_ITS | Encounter Summary ---
Author Organization [facility] Address [address] [place] [address] Care Team Providers Care Auto Damage Appraiser Name Role Phone Melia Ortiz MD Primary Care Provider [phone] Encounter Details Date Type Department Care Team (Late st Contact Info) Description 07/15/2024 Telephone [facility] - Centralized Scheduling [address] [place] [id number] Aime Rene MD [address] [place] [address] Social History Tobacco Use Types Packs/Day Years Used Date Smoking Tobacco: Never Smokeless Tobacco: Never Alcohol Use Standard Drinks/Week Comments Not Currently 0 (1 standard drink = 0.6 oz pur e alcohol) Sex and Gender Information Value Date Recorded Sex Assigned at Not on file 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
--- OUTSIDE RECORDS SUMMARY | 2025-02-02 00:17 | XMS_ITS | Referral Summary ---
Author Organization [address] Address [address] [place] [phone] Care Team Providers Care Oven Attendant Name Role Phone Melia Ortiz MD Primary Care Provider [phone] Encounters Date Type Department Care Team Description 11/24/2024 Orders Only [facility] Cardiology [address] [facility] [address] [place] [address] ProviderTal MD 11/24/2024 9:00 AM CDT Office Visit [facility] Cardiology at [address] [place] [address] Meliton Garcia MD Nonobstructive atherosclerosis of coronary artery (Primary Dx); Hypertension associated with diabetes (HCC); Palpitations; Hyperlipidemia associated with type 2 diabetes mellitus (HCC) 11/12/2024 Results Follow-Up [facility] [address] [place] [address] [address], [place] [address] Melissa Alarcon MD Lipid panel, Comprehensive metabolic panel, Albumin Creatinine Ratio, Urine, eGFR 11/10/2024 11:16 AM CDT - 11/10/2024 11:59 PM CDT Hospital Encounter [address] [address] Type 2 diabetes mellitus with hyperglycemia, with long-term current use of insulin (HCC); Hyperlipidemia associated with type 2 diabetes mellitus (HCC); Hypertension associated with diabetes (HCC) Discharge Disposition: Discharge to home or self care 11/10/2024 11:15 AM CDT Lab [facility] Outpatient Lab at [address] [phone] Hyperlipidemia associated with type 2 diabetes mellitus (HCC) (Primary Dx) 11/08/2024 1:45 PM CDT Office Visit [facility] Diabetes and Endocrinology [address] [place] [phone] Melissa Alarcon MD Type 2 diabetes mellitus with hyperglycemia, with long-term current use of insulin ([facility]) (Primary Dx); Diabetic neuropathy associated with type 2 diabetes mellitus (HCC); Hypertension associated with diabetes ([facility]); Hyperlipidemia associated with type 2 diabetes mellitus (HCC) from Last 3 Months Allergies No known active allergies Medications atorvastatin (LIPITOR) 80 mg tablet Take 1 tablet (80 mg total) by mouth nightly at bedtime. Active OneTouch Verio test strips strip 4 Active dapagliflozin propanediol (FARXIGA) 10 mg tablet Take 1 tablet (10 mg total) by mouth building custodian before breakfast Active diltiaZEM CD (CARDIZEM CD) [...] hyperglycemia, with long-term current use of insulin ([facility]) Inject 5-10 Units under the skin 3 (three) times a day with meals 27 mL 3 4 04/26/20 25 Active LANTUS 100 unit/mL (3 mL) pen for injectionIndicat ions:Type 2 diabetes mellitus with hyperglycemia, with long-term current use of insulin ([facility]) Inject 8-10 Units under the skin nightly [...] 04/26/2024 Assessment & Plan (06/22/2024 9:11 AM ADVANCED REGISTERED NURSE): Chronic problem. A1c improved from 11.1% 04/26/24 [...] min walking every day Advise to see Nursing Center Tutor Follow up in 2 months Hypertension associated with diabetes 04/26/2024 Assessment & Plan (06/22/2024 9:13 AM ADVANCED REGISTERED NURSE): Chronic problem. Elevated upon arrival. Currently taking diltiazem CD 360mg daily, losartan 100mg daily, spironolactone 25mg daily Assessment & Plan (04/26/2024 11:11 AM CDT): Chronic, uncontrolled On Losartan Advise to work on low salt diet Will reassess in next visit and further adjust Diabetic neuropathy associat ed with type 2 diabetes mellitus 04/26/2024 Assessment & Plan (06/22/2024 9:11 AM ADVANCED REGISTERED NURSE): Chronic problem. Currently taking Gabapentin 100mg tid [...] 04/26/2024 Assessment & Plan (06/22/2024 8:47 AM ADVANCED REGISTERED NURSE): Chronic problem. Currently taking Atorvastatin 80mg. Last lipid panel: 03/25/24 ABR=903, FQ=523. Assessment & Plan (04/26/2024 11:09 AM CDT): [...] on file Legal Sex Male 1:04 AM ADVANCED REGISTERED NURSE Gender Identity Not on file Sexual Orientation [...] Ratio, Urine (11/10/2024 5:35 PM CDT) Pathologist [facility] Albumin Ur <12.0 mg/L Comment: Interpretive Data [...] LAB URINE ORDERABLE S Final Result [facility] [address] Department [place] [address] * eGFR (11/10/2024 5:33 PM CDT) eGFR [...] BLOOD ORDERABLE S Final Result [facility] [address] [place] [address] * (ABNORMAL) Lipid panel (11/10/2024 [...] revised on 2024. Non-HDL Cholesterol 61 mg/dL [facility] Comment: Interpretive Data Ages < [...] last revised on 2018. Chol/HDL ratio 3 [facility] Blood 11/10/2024 5:33 PM CDT 11/10/2024 5:33 PM CDT us Melissa Salvador MD LAB BLOOD ORDERABLE S Final Result [facility] [address] Department [place] [address] * (ABNORMAL) Comprehensive metabolic panel (11/10/2024 5:33 PM CDT) Sodium 140 135 - 145 mmol/L Potassium, pl 4.4 3.3 - 4.9 mmol/L [facility] Chloride 107 97 - 110 mmol/L [facility] CO2 22 22 - 32 mmol/L [facility] Anion gap 11 2 - 15 mmol/L [facility] BUN 16 6 - 25 mg/dL [facility] Creatinine 0.84 0.80 - 1.30 mg/dL [facility] Glucose 241(H) 70 - 199 mg/dL [facility] Comment: Interpretive Data Fasting glucose [...] LAB BLOOD ORDERABLE S Final Result [facility] [address] Department [place] [address] * (ABNORMAL) POCT hemoglobin A1c (11/08/2024 1:45 [...] Final Result from Last 3 Months Insurance [facility] Care Teams Oven Attendant Relationship Specialty Start Date End Date Melia Ortiz MD PCP - General Family Medicine 11/20/23
--- OUTSIDE RECORDS SUMMARY | 2025-02-02 00:17 | XMS_ITS | Clinical Summary ---
Author Organization [facility] Address [address] [place] [address] Care Team Providers Care Automobile Mechanic Helper Name Role Phone Melia Ortiz MD Primary Care Provider [phone] Source Comments [facility],non-owned Affiliates and Associated Physician Practices is amultiple site organization consisting of ambulatory clinics and hospital sitesin [place], [place], [place] and [place]. This disclosure is being madepursuant to the Care Everywhere program and may not contain all information available regarding this patient. Last updated 18.[facility] Allergies No known active allergies Medications * [...] 03/26/20 24 Active Blood Glucose Monitoring Suppl (PowerVision Verio Flex System) w/Device KITIndications:T ype 2 [...] Active Continuous Glucose Sensor (Dexcom G7 Sensor) [facility] USE ONE SENSOR EVERY 10 DAYS 05/24/20 [...] on file Legal Sex Male 2:24 PM SANDER HAND Gender Identity Not on file Sexual Orientation Not on file Last Filed Vital Signs Vital Sign Reading Time Taken Comments Blood Pressure 144/82 07/08/2024 9:20 AM SANDER HAND Pulse 74 07/08/2024 9:20 AM SANDER HAND Temperature 36.8 C (98.2 F) 04/01/2024 9:09 AM CDT Respiratory Rate 16 07/08/2024 9:20 AM SANDER HAND Oxygen Saturation 99% 07/08/2024 9:20 AM SANDER HAND Inhaled Oxygen Concentration - - Weight 101.2 kg (223 lb) 07/08/2024 9:20 AM SANDER HAND Height 182.9 cm (6') 07/08/2024 9:20 AM SANDER HAND Body Mass Index 30.24 07/08/2024 9:20 AM SANDER HAND Plan of Treatment Health Maintenance Due [...] - 26 mg/dL 03/25/2024 10:46 AM CDT [facility] Creatinine 0.73 0.71 - 1.16 mg/dL 03/25/2024 10:46 AM CDT [facility] Sodium 140 136 - 145 mmol/L 03/25/2024 10:46 AM [facility] Potassium 3.3(L) 3.5 - 4.5 mmol/L 03/25/2024 10:46 AM [facility] Chloride 107 98 - 107 mmol/L 03/25/2024 10:46 AM [facility] CO2 28 22 - 29 mmol/L 03/25/2024 10:46 AM [facility] Glucose 324(H) 70 - 115 mg/dL 03/25/2024 10:46 AM [facility] Calcium 9.5 8.4 - 10.2 mg/dL 03/25/2024 10:46 AM [facility] Anion Gap 5(L) 6 - 16 03/25/2024 10:46 AM [facility] BUN/Creatinine Ratio 23 7 - 23 03/25/2024 10:46 AM [facility] Osmolality Calculated 304(H) 275 - 295 mOsm/kg 03/25/2024 10:46 AM [facility] eGFR by CKD-EPI >90 >=90 mL/min/1.7 3 m2 03/25/2024 10:46 AM [facility] Blood BLOOD SPECIMEN / Unknown Lab Venipuncture / Unknown 03/25/2024 9:51 AM CDT 03/25/2024 10:15 AM CDT us Quan Barrera PULP BLEACHER-SAMPLE DYE MIXER LAB - CHEMISTRY ORD ERABLES Final Result [facility] [address] [place] [phone], [facility] [phone] * HEPATITIS C AB SCREEN RFLX NAAT QUANT (03/23/2024 1:15 PM CDT) Hepatitis C Antibody Non-react courtney Non-reac tive 03/23/2024 2:07 PM [facility] Comment:Hepatitis C Antibody screen indicates no [...] ORDERABLES Fi nal Result Performing Organization Address City/[facility]/ZIP Co de Phone Number [facility] [address] [place] [address], [place] [phone] * (ABNORMAL) HEMOGLOBIN A1C (03/23/2024 1:15 PM CDT) Hemoglobin A1c 13.5(H) <=5.6 % 03/23/2024 3:05 PM CDT [facility] Estimated Average Glucose 341 mg/dL 03/23/2024 3:05 PM CDT [facility] Comment: HbA1c Interpretation: Normal : < 5.7% Pre-diabetes: 5.7-6.4% Diabetes: Equal to or greater than 6.5% Test results diagnostic of diabetes should be repeated for confirmation. Treatment target values recommended by ADA and other clinical organizations should be used to evaluate metabolic control in patients. Reference: [place] Diabetes Association, Standards of Care in Diabetes [...] ORDERABLES Fin al Result Performing Organization Address City/[facility]/ZIP Co de Phone Number [facility] [address] [place] [address], [place] [phone] from Last 3 Months or Most Recently Relevant to Health Maintenance Insurance [facility] * Guarantor: NATAN AUGUSTE Account Type Relation to Patient Date of Phone Billing Address Personal/Family [address] [place] [address] [facility] Advance Directives * Full Code (Latest Code Status on File) Date Activated Date Inactivated Comments 03/24/2024 4:51 PM 03/26/2024 5:28 PM Care Teams Automobile Mechanic Helper Relationship Specialty Start Date End Date Melia Ortiz MD [address] [place] [address] PCP - General Family Medicine 03/24/24
--- OUTSIDE RECORDS SUMMARY | 2025-02-02 00:17 | XMS_ITS | Clinical Summary ---
Author Organization [facility] [address] Address [address] [place] [phone] Care Team Providers Care Paperhanger Supervisor Name Role Phone Melia Ortiz MD Primary Care Provider [phone] Allergies No known active allergies Medications atorvastatin (LIPITOR) 80 mg tablet Take 1 tablet (80 mg total) by mouth nightly at bedtime. Active OneTouch Verio test strips strip 4 Active dapagliflozin propanediol (FARXIGA) 10 mg tablet Take 1 tablet (10 mg total) by mouth wire brusher before breakfast Active diltiaZEM CD (CARDIZEM CD) [...] 04/26/2024 Assessment & Plan (06/22/2024 9:11 AM ELECTRICAL TRANSMISSION ENGINEER): Chronic problem. A1c improved from 11.1% 04/26/24 [...] min walking every day Advise to see Trawl Net Maker Follow up in 2 months Hypertension associated with diabetes 04/26/2024 Assessment & Plan (06/22/2024 9:13 AM ELECTRICAL TRANSMISSION ENGINEER): Chronic problem. Elevated upon arrival. Currently taking diltiazem CD 360mg daily, losartan 100mg daily, spironolactone 25mg daily Assessment & Plan (04/26/2024 11:11 AM CDT): Chronic, uncontrolled On Losartan Advise to work on low salt diet Will reassess in next visit and further adjust Diabetic neuropathy associat ed with type 2 diabetes mellitus 04/26/2024 Assessment & Plan (06/22/2024 9:11 AM ELECTRICAL TRANSMISSION ENGINEER): Chronic problem. Currently taking Gabapentin 100mg tid [...] 04/26/2024 Assessment & Plan (06/22/2024 8:47 AM ELECTRICAL TRANSMISSION ENGINEER): Chronic problem. Currently taking Atorvastatin 80mg. Last lipid panel: 03/25/24 EFN=682, IR=242. Assessment & Plan (04/26/2024 11:09 AM CDT): Continue Statin therapy Overweight with body mass in dex (BMI) of 28 to 28.9 in adult 04/26/2024 Assessment & Plan (04/26/2024 11:11 AM CDT): Counseled on diet and exercise and healthy lifestyle habits Encounters Date Type Department Care Team Description 11/24/2024 9:00 AM CDT Office Visit [facility] Cardiology at [address] [place] [phone] Meliton Garcia MD Nonobstructive atherosclerosis of coronary artery (Primary Dx); Hypertension associated with diabetes (HCC); Palpitations; Hyperlipidemia associated with type 2 diabetes mellitus (HCC) 11/24/2024 Orders Only [facility] Cardiology [address] [facility] [address] [place] [address] ProviderTal MD 11/12/2024 Results [facility] [address] [facility] [address] [place] [address] Melissa Alarcon MD Lipid panel, Comprehensive metabolic panel, Albumin Creatinine Ratio, Urine, eGFR 11/10/2024 11:16 AM CDT - 11/10/2024 11:59 PM CDT Hospital Encounter [facility] [address] [place] [address] Type 2 diabetes mellitus with hyperglycemia, with long-term current use of insulin (HCC); Hyperlipidemia associated with type 2 diabetes mellitus (HCC); Hypertension associated with diabetes (HCC) Discharge Disposition: Discharge to home or self care 11/10/2024 11:15 AM CDT Lab [facility] Outpatient Lab at [address] [phone] Hyperlipidemia associated with type 2 diabetes mellitus (HCC) (Primary Dx) 11/08/2024 1:45 PM CDT Office Visit [facility] Diabetes and Endocrinology [address] [place] [phone] Melissa Alarcon MD Type 2 diabetes [...] on file Legal Sex Male 1:04 AM ELECTRICAL TRANSMISSION ENGINEER Gender Identity Not on file Sexual Orientation [...] LAB URINE ORDERABLE S Final Result [facility] [address] Department [place] [address] * eGFR (11/10/2024 5:33 PM [...] BLOOD ORDERABLE S Final Result [facility] [address] [address] Department [place] [address] * (ABNORMAL) Lipid panel (11/10/2024 5:33 PM [...] LAB BLOOD ORDERABLE S Final Result [facility] [address] Department [place] [address] * (ABNORMAL) Comprehensive metabolic panel (11/10/2024 5:33 PM CDT) Pathologist [facility] Sodium 140 135 - 145 mmol/L Potassium, [...] BLOOD ORDERABLE S Final Result [facility] [address] Department [place] [address] * (ABNORMAL) POCT hemoglobin A1c (11/08/2024 1:45 [...] Final Result from Last 3 Months Insurance [facility] ACC[facility] Member Subscriber Plan / Payer (Ef fective 2022-Present) Name:Natan Auguste Relation to Subscriber:Self Name:Natan Auguste Payer ID:[id number] (NAIC) Type: WLILARD Address: [facility] [id number] [place] [id number] Care Teams Paperhanger Supervisor Relationship Specialty Start Date End Date Melia Ortiz MD PCP - General Family Medicine 11/20/23
[2025-02-02 06:50] VITALS: BP 126/63; PULSE 66; RESP 20; TEMP 36.3; O2SAT 100
--- NOTE | 2025-02-02 06:53 | WPDHPUPDATE1 ---
History and Physical Update Update Date/Time: 02/02/25 06:53 Patient seen and examined in pre-operative holding area. No interval change in medical history or symptoms. Patient recalls previous discussion of benefits and alternatives to procedure. Continues to desire to proceed with right endoscopic possible open carpal tunnel and right cubital tunnel release revision. Reviewed procedure, post-op expectations and risks including but not limited to bleeding, infection, injury to tendon/nerve/vessel, decreased hand function, stiffness, RSD, no change or worsening of symptoms. I discussed the possible use of assistants and their participation in the case. Patient stated understanding and signed the consent form wishing to proceed.
--- NOTE | 2025-02-02 06:53 | W.PM.PROC2 ---
Procedure Note - Detailed Date of Procedure 02/02/25 Pre-op Diagnosis right carpal and cubital tunnel syndrome Post-op Diagnosis Same Procedure Performed right ectr and CuTR revision Surgeon Cayetano Kang MD Engine Maintenance Mechanic juan sánchez pa-c Anesthesia MAC Description of Procedure INFORMED CONSENT: The patient was seen and examined and marked in the pre-op area.? The patient signed the consent form. PROCEDURE IN DETAIL:The patient taken back to OR on the stretcher in supine position. Time out performed with anesthesia, surgeon and staff agreeing on patient's name site and surgery to be performed SCDs were placed on the lower extremities and inflated. A tourniquet was placed on {right} upper extremity and antibiotics given IV After anesthesia administered sedation I injected {10}cc 1%lido with epi and 0.5% marcaine plain at the operative sites The?{right upper extremity}?was prepped and draped in sterile fashion the??{right upper extremity} was? exsanguinated with Esmarch bandage and tourniquet inflated to 250mmHg I made a transverse incision in the {right} volar distal wrist crease through skin and dermis with 15 blade scalpel.? Littler scissors spread down to antebrachial fascia. A small incision was made in antebrachial fascia allowing access to Carpal tunnel and visualize the median nerve radially of which there was a mlld amount of synovitis and no clear adhesion or compression on the nerve visible from this incision. . I proceeded with sequential dilation staying in line with the ring finger and hugging the hook of the hamate.? I then used the synovial elevator to free any adhesions from the underside of the transverse carpal ligament. Next I was able to insert the Microaire endoscopic carpal tunnel device with direct visualization of residual transverse fibers and scar tissue on the monitor and proceeded with complete segmental retrograde release of the ligament and scar tissue in its entirety.? I irrigated with normal saline and closed with 4-0 monocryl for dermis and subcuticular closure. I next proceeded with making an elliptical incision around the patient's previous cubital tunnel incision extending proximally and distally to account for dog ears and improve closure. Littler scissors were used to dissect through scar tissue and subcutanteous tissue distally where I identified the nerve going below the two heads of fcu. I proceeded with retrograde release of this thick scar tissue from the nerve proximally until the nerve appeard uncompressed with areas of visible vaso nervorum. I irrigated with normal saline and closued with 3-0 vicryl and 4-0 monocryl. length of clsoure as 6cm The incisions were covered with Dermabond then 4x4s, jose c, and a posterior elbow and volar wrist splint for patient safety, security and comfort and secured with kirstin bandages after the tourniquet was let down noting the hand was warm and well perfused.? Patient awaken from anesthesia and transferred to recovery in stable condition Complications - none EBL- 1cc Disposition - home in stable condition Juan Sánchez PA-C was essential for positioning, retraciton, closure and dressing placement [facility] Billing Surgery - Charge Forward: Surgery Billing ([id number], [id number] same for juan adding )
--- NOTE | 2025-02-02 08:04 | P.PNAN_ITS ---
Anes - Initial Pre Proc Eval Procedure: Operation Date: 02/02/25 09:00 Proposed Procedures p Right Endoscopic Carpal Tunnel Release, Possible Open, Revision Right Cubital Tunnel - Cayetano Kang MD Date/Time: 02/02/25 08:04 Surgeon: Cayetano Kang MD Pre Op Diagnosis: right carpal and cubital tunnel syndrome Patient Data Age: 69 Gender: M Height: 1.83 m Weight: 100 kg Allergies Allergy/AdvReac Type Severity Reaction Status Date / Time No Known Allergies Allergy Verified 02/02/25 07:51 Home Medications ?Medication ?Instructions ?Recorded ?Confirmed ?Type blood-glucose meter (OneTouch #1 ea 11/12/19 01/27/25 Rx Verio Meter) lancets 30 gauge (OneTouch Delica #100 ea 11/12/19 01/27/25 Rx Lancets) blood sugar diagnostic (OneTouch See Rx Instructions .Route 12/03/23 01/27/25 Rx Verio test strips) .COMPLEX #300 strips atorvastatin 80 mg tablet 80 mg PO DAILY #30 tabs 03/27/24 02/02/25 Rx insulin aspart U-100 100 unit/mL 3 unit (0.03 mL) subcut TID #15 mL 04/12/24 02/02/25 Rx (3 mL) subcutaneous pen (Novolog FlexPen U-100 Insulin aspart) losartan 50 mg tablet 100 mg PO DAILY 04/14/24 02/02/25 History pen needle, diabetic 29 gauge x #200 ea 04/20/24 01/27/25 Rx 1/2 (BD Ultra-Fine Original Pen Needle) pen needle, diabetic 32 gauge x #200 ea 04/20/24 01/27/25 Rx 5/32 (BD Ultra-Fine Keysha Pen Needle) blood-glucose transmitter (Dexcom #1 ea 05/19/24 01/27/25 Rx G6 Transmitter device) insulin glargine 100 unit/mL (3 8 unit (0.08 mL) subcut QAM #15 mL 05/19/24 02/02/25 Rx mL) subcutaneous pen (Lantus Solostar U-100 Insulin) metformin 500 mg tablet 500 mg PO DAILY #90 tabs 05/21/24 02/02/25 Rx aspirin 81 mg tablet,delayed 81 mg PO DAILY #90 tabs 06/24/24 02/02/25 Rx release (Adult Aspirin Regimen) carvedilol 6.25 mg tablet 6.25 mg PO BID 07/09/24 02/02/25 History trazodone 50 mg tablet 50 mg PO QHS PRN insomnia #30 tabs 09/03/24 02/02/25 Rx spironolactone 25 mg tablet 25 mg PO DAILY #30 tabs 10/10/24 02/02/25 Rx acetaminophen 650 mg 650 mg PO Q12H 10/20/24 02/02/25 History tablet,extended release dapagliflozin propanediol 10 mg 10 mg PO DAILY #90 tabs 11/04/24 02/02/25 Rx tablet (Farxiga) diltiazem HCl 360 mg capsule,24 See Rx Instructions .Route 11/04/24 02/02/25 Rx hr,extended release (Tiadylt ER) .COMPLEX #90 caps gabapentin 100 mg capsule 300 mg PO .COMPLEX 01/24/25 02/02/25 History amoxicillin 875 mg-potassium 1 tablet PO Q12H 10 days #20 tabs 01/31/25 02/02/25 Rx clavulanate 125 mg tablet doxycycline hyclate 100 mg tablet 100 mg PO BID 10 days #20 tabs 01/31/25 02/02/25 Rx furosemide 20 mg tablet (Lasix) 20 mg PO DAILY 30 days #30 tabs 01/31/25 02/02/25 Rx Patient hx anesthesia problems: none Family hx anesthesia problems: none Results Review: All pre-operative results and documents have been reviewed as part of the pre- operative evaluation. FORMERLY [facility], [facility] Past Medical History Medical History Ventral hernia without obstruction or gangrene Umbilical hernia without obstruction and without gangrene Primary osteoarthritis of right knee Primary osteoarthritis of left knee Hyperlipidemia Diastasis recti Benign hypertension History of colon polyps Class 1 obesity with body mass index (BMI) of 32.0 to 32.9 in adult Obesity Hypercholesterolemia Primary hypertension Pyogenic granuloma of tongue Type 2 diabetes mellitus with hyperglycemia Surgical History Surgical History H/O umbilical hernia repair S/P left knee arthroscopy H/O colonoscopy Family History Family History (Updated 01/27/25 @ 13:04 by Yuliya Peters RN) Mother Diabetes mellitus Hypertension Glaucoma Sibling Alzheimer's dementia Father Glaucoma Social History Social History Smoking packs per day: 1.5 Smoking cigarettes per day: 30.0 Years smoked: 20 Smoking pack-years: 30.00 Smoking status: Never smoker Tobacco type: cigarettes Second hand tobacco smoke exposure: No Smoking end date: 07/07/13 Alcohol intake: never Substance use: never Substance use type: does not use Do You Feel Safe in your Home?: Yes Lack of Transportation: No Lack of Food: Never True Current Housing: I Have Housing Concerned About Future Housing: No Difficulty Paying Gas/Electric Bills: No Difficulty Paying for Meds: No Currently Unemployed: No Education: High School Diploma/GED Difficulty w/ Childcare or Family Care: No Living arrangements: with family Occupation/Education: occupation Gender identity (if verbalized by the patient): Male Sexual Orientation (if Verbalized by the Patient): Straight or Heterosexual Spiritual care concerns: No Agree to blood products: Yes Anes - Eval Final PreProcedure Day of Procedure 02/02/25 08:04 Patient weight: obese Heart: regular rate and rhythm Lungs: clear to auscultation Airway: Mallampati scale class II Neurological: alert and oriented Last oral intake: >/= 8 hours ASA classification: III Emergent: no Anesthetic plan: proceed Anesthesia type and monitoring: general GIVS and standard monitoring Results Review: All pre-operative results and documents have been reviewed as part of the pre- operative evaluation. Informed Consent: The patient's anesthetic plan and its attendant risks and benefits were discussed with the patient/family/POA. Questions were solicited and answers provided to the satisfaction of the patient/family/POA.
[2025-02-02] MEDS: LACTATED RINGERS 1,000 ML 30 ML IV CONT (08:15)
[2025-02-02] MEDS: ACETAMINOPHEN 500 MG TABLET 1000 MG PO (08:17)
--- NOTE | 2025-02-02 08:33 | SUR.PREOP ---
0815-open area to right great toe, being treated by Dr. Hernandez. Dr. Hess aware, Dr. Hernandez aware of today's schedule surgery. Area is covered and was not examined at this time.
[2025-02-02] MEDS: ceFAZolin 2 GM in SODIUM CHLORIDE 0.9% IV 50 ML 100 ML IVPB (09:03)
[2025-02-02 09:40] VITALS: BP 117/63; PULSE 55; RESP 16; O2SAT 100
[2025-02-02 09:55] VITALS: BP 114/58; PULSE 56; RESP 18
[2025-02-02 10:13] VITALS: BP 125/69; PULSE 52; RESP 18
== END 2025-02-02 10:18 | disposition home or self-care (01) ==
PROVIDERS: PCP Family Medicine; Visit Provider Plastic Surgery
PROC: 01N54ZZ Release Median Nerve, Percutaneous Endoscopic Approach (ICD-10-PCS; CPT 29848; principal; 2025-02-02 09:00)
DX: G56.01 Carpal tunnel syndrome, right upper limb (principal); G56.21 Lesion of ulnar nerve, right upper limb; M65.841 Other synovitis and tenosynovitis, right hand; I10 Essential (primary) hypertension; E11.65 Type 2 diabetes mellitus with hyperglycemia; E78.00 Pure hypercholesterolemia, unspecified; M17.0 Bilateral primary osteoarthritis of knee; E66.9 Obesity, unspecified; Z68.32 Body mass index [BMI] 32.0-32.9, adult; Z79.4 Long term (current) use of insulin; Z79.84 Long term (current) use of oral hypoglycemic drugs; Z79.82 Long term (current) use of aspirin; Z98.890 Other specified postprocedural states; Z87.891 Personal history of nicotine dependence; Z86.0100 Personal history of colon polyps, unspecified
CPT/HCPCS: 64718; 29848; 82948; J0690; A9270; J2003; J2371; J2704; J3010; J7120

== ENCOUNTER 2025-03-18 12:55 | Outpatient (CLI) | payer BC, SELFPAY ==
[2025-03-18 13:26] LABS: Hematocrit 39.1 % (42.0-52.0); Hemoglobin 12.7 g/dL (14.0-18.0); Immature Granulocyte Percent A 0.4 % (0-0.5); Lymphocytes Absolute Auto 2.34 K/mm3 (0.9-3.2); Mean Corpuscular HGB Conc 32.5 g/dl (32-36); Mean Corpuscular Hemoglobin 27.4 pg (26-34); Mean Corpuscular Volume 84.4 fl (80-100); Nucleated Red Blood Cells Absolute Auto 0.000 K/mm3 (0.0-0.012); Nucleated Red Blood Cells Perc 0.0 % (0.0-0.2); Platelet Count Result 290 k/mm3 (150-375); Red Blood Count 4.63 M/mm3 (4.6-6.20); White Blood Count 7.6 K/mm3 (4.5-10.0)
[2025-03-18 13:46] LABS: Alanine Aminotransferase 24 U/L (6-50); Albumin Level 4.3 g/dL (3.5-5.1); Alkaline Phosphatase 128 U/L (38-126); Anion Gap 7 mmol/L (4-12); Aspartate Amino Transferase 27 U/L (17-59); Bilirubin,Total 0.4 mg/dL (0.2-1.3); Blood Urea Nitrogen 15 mg/dL (9-20); Calcium 9.2 mg/dL (8.4-10.2); Carbon Dioxide 22 mmol/L (22-30); Chloride 111 mmol/L (98-107); Estimated Glomerular Filt Rate > 60; Glucose 91 mg/dL (65-110); Potassium 4.1 mmol/L (3.4-5.0); Sodium 140 mmol/L (137-145); Total Protein 7.4 g/dL (6.3-8.2)
[2025-03-19 18:08] LABS: Anti-CCP Ab, IgG/IgA 8 units (0-19)
[2025-03-23 13:08] LABS: ANA by IFA Rfx Titer/Pattern Negative (.)
== END 2025-03-18 12:56 | disposition home or self-care (01) ==
LOC: ANHLAB 12:55
PROVIDERS: PCP Family Medicine; Visit Provider Family Medicine
DX: H47.10 Unspecified papilledema (principal); R53.83 Other fatigue; E11.9 Type 2 diabetes mellitus without complications
CPT/HCPCS: 36415; 80053; 85025; 85652; 86038; 86200; 86430